=== PATIENT | female | born 1960 | race Two or more races ===

== ENCOUNTER → 2020-06-14 08:59 | Outpatient (BNVA) | payer MEDICARE, MEDICAID, SELFPAY | PROVIDERS: PCP Internal Medicine; Referring Provider Internal Medicine; Visit Provider Internal Medicine Endocrinology, Diabetes & Metabolism | DX: M81.0 Age-related osteoporosis without current pathological fracture (principal); Z79.899 Other long term (current) drug therapy | CPT/HCPCS: 99212 ==

== ENCOUNTER 2020-06-29 14:49 | Outpatient (REF) | payer MEDICARE, MEDICAID, SELFPAY ==
--- NOTE | 2020-06-29 14:55 | MM_ITS ---
EXAMINATION: MM SCREENING DIGITAL BREAST TOMOSYNTHESIS, BILATERAL CLINICAL INFORMATION: Screening. Asymptomatic. The lifetime risk of breast cancer based on the Tyrer-Cuzick Model is 10.6%. COMPARISON: Mammography: June 24, 2019 and studies dating back to January 16, 2012 TECHNIQUE: Digital breast tomosynthesis is performed in both the craniocaudal and mediolateral oblique views along with computer-aided detection (CAD). Synthesized 2D images are generated from the tomosynthesis. FINDINGS: The breasts are heterogeneously dense, which may obscure small masses (ACR BI-RADS breast composition Category c). On craniocaudal view about the posterior lateral aspect of the left breast there is an 8 x 6 mm circumscribed density 9 cm from the nipple for which spot compression view and probable ultrasound is recommended. There is stable appearance of the right breast. MM/MM tomosynthesis screening BI IMPRESSION: Left breast density on craniocaudal view for further evaluation as described. ASSESSMENT: BI-RADS 0: Incomplete - Need Additional Imaging Evaluation RECOMMENDATION: 1. Additional views of the left breast 2. Targeted ultrasound if warranted after review of the additional views. 3. Radiology department staff will contact the patient for additional imaging. This patient's information was entered into a reminder system with a target due date for their next mammogram.
== END 2020-06-29 14:50 | disposition home or self-care (01) ==
LOC: HO.MAMMO 14:49
PROVIDERS: PCP Internal Medicine; Visit Provider Internal Medicine
DX: Z12.31 Encounter for screening mammogram for malignant neoplasm of breast (principal)
CPT/HCPCS: 77063; 77067

== ENCOUNTER 2020-07-04 08:01 | Outpatient (REF) | payer MEDICARE, MEDICAID, SELFPAY ==
[2020-07-04 09:07] LABS: Albumin Level 4.1 g/dL (3.5-5.0); Calcium 9.5 mg/dL (8.4-10.2)
[2020-07-11 03:51] LABS: N-Telopeptide 7 (see note); NTXCreaRU 39 mg/dL (20-275)
== END 2020-07-04 08:02 | disposition home or self-care (01) ==
LOC: HO.LAB 08:01
PROVIDERS: PCP Internal Medicine; Visit Provider Internal Medicine Endocrinology, Diabetes & Metabolism
DX: M81.0 Age-related osteoporosis without current pathological fracture (principal); E78.00 Pure hypercholesterolemia, unspecified
CPT/HCPCS: 82040; 82306; 82310; 82523

== ENCOUNTER 2020-07-22 08:08 | Outpatient (REF) | payer MEDICARE, MEDICAID, SELFPAY | END 2020-07-22 08:09 | disposition home or self-care (01) | LOC: HO.LAB 08:08 | PROVIDERS: Visit Provider Internal Medicine | DX: Z20.828 Contact with and (suspected) exposure to other viral communicable diseases (principal) | CPT/HCPCS: C9803; U0003 ==

== ENCOUNTER 2020-08-15 13:39 | Outpatient (REF) | payer MEDICARE, MEDICAID, SELFPAY ==
--- NOTE | 2020-08-15 13:42 | MM_ITS ---
EXAMINATION: MM DIAGNOSTIC DIGITAL BREAST TOMOSYNTHESIS, LEFT US DIAGNOSTIC ULTRASOUND BREAST, LEFT CLINICAL INFORMATION: Recall from screening for nodular asymmetric density posterior central outer left breast on CC view. No definite correlate on MLO view. Family history breast cancer in sister. COMPARISON: Mammography: 06/29/2020, 06/24/2019, 05/29/2018, 05/27/2017 TECHNIQUE: Digital breast tomosynthesis is performed. 2D images are generated from the tomosynthesis. The following views are obtained: 3-D spot CC, 3-D rolled CC x2 Ultrasound left breast is targeted to the 1:00 through 5:00 position. Grayscale imaging and color Doppler are performed without and with harmonics. FINDINGS: The breasts are heterogeneously dense, which may obscure small masses (ACR BI-RADS breast composition Category c). The asymmetric density is less conspicuous on the additional views. There is no three-dimensional lesion or architectural abnormality. Ultrasound shows no cystic or solid mass or architectural abnormality. No focal duct ectasia. Results are discussed with the patient at time of visit, using an sign writer letterer or painter. Management plan is for short interval six-month follow-up left diagnostic digital breast tomosynthesis. MM/MM tomosynthesis added views L IMPRESSION: 1. Asymmetric density less conspicuous on additional views. No visible three-dimensional lesion or architectural abnormality. 2. No ultrasound correlate. ASSESSMENT: BI-RADS 3: Probably Benign RECOMMENDATION: Diagnostic left 3-D mammography in 6 months. This patient's information was entered into a reminder system with a target due date for their next mammogram.
== END 2020-08-15 13:40 | disposition home or self-care (01) ==
LOC: HO.MAMMO 13:39
PROVIDERS: PCP Internal Medicine; Visit Provider Internal Medicine
DX: R92.2 Inconclusive mammogram (principal); N64.89 Other specified disorders of breast; M81.0 Age-related osteoporosis without current pathological fracture
CPT/HCPCS: 76642; 77061; 77065

== ENCOUNTER → 2020-08-23 08:42 | Outpatient (BNVA) | payer MEDICARE, MEDICAID, SELFPAY | PROVIDERS: PCP Internal Medicine; Visit Provider Dietitian, Registered | DX: Z76.89 Persons encountering health services in other specified circumstances (principal) ==

== ENCOUNTER 2020-09-21 12:16 | Outpatient (REF) | payer MEDICARE, MEDICAID, SELFPAY ==
[2020-09-21 14:21] LABS: Estimated Average Glucose 229 mg/dL; Hemoglobin A1c % 9.6 %
[2020-09-21 14:23] LABS: Glucose Urine UA NEG (NEG); Leukocyte Esterase Urine 1+ (NEG); Nitrite Urine POS (NEG); Urine Blood 1+ (NEG); Urine Ketones NEG (NEG); Urine Protein NEG (NEG-TRACE)
[2020-09-21 14:26] LABS: Appearance Urine HAZY; Color Urine STRAW
[2020-09-21 14:35] LABS: Bacteria Urine 3+ /LPF; Squamous Epithelial Cell Urine 4+ /LPF
[2020-09-21 14:43] LABS: Alanine Aminotransferase 39 U/L (0-31); Albumin Level 4.2 g/dL (3.5-5.0); Alkaline Phosphatase 159 U/L (39-117); Anion Gap 13 (12-20); Aspartate Amino Transferase 30 U/L (5-31); Bilirubin Total 0.4 mg/dL (0.0-1.0); Blood Urea Nitrogen 18 mg/dL (9-16); Calcium 9.1 mg/dL (8.4-10.2); Carbon Dioxide 26 mmol/L (22-29); Chloride 103 mmol/L (96-108); Cholesterol 129 mg/dL; Estimated Glomerular Filt Rate 55; Glucose Random 140 mg/dL (60-115); HDL Cholesterol 34 mg/dL; LDL Cholesterol Calculated 76 mg/dl; Potassium 4.6 mmol/L (3.3-5.1); Sodium 137 mmol/L (135-145); Total Protein 7.5 g/dL (6.5-8.0); Triglycerides 98 mg/dL
[2020-09-21 14:48] LABS: Creatinine Urine 71.92 mg/dL; Microalbum/Creatinine Ratio Ur 8.3 ug/mg cr
[2020-09-21 14:52] LABS: Thyroid Stimulating Hormone 1.96 uIU/mL (0.32-4.0)
== END 2020-09-21 12:17 | disposition home or self-care (01) ==
LOC: HO.HMGCLDS 12:16
PROVIDERS: PCP Internal Medicine; Visit Provider Internal Medicine
DX: E11.65 Type 2 diabetes mellitus with hyperglycemia (principal); E78.00 Pure hypercholesterolemia, unspecified
CPT/HCPCS: 36415; 80053; 80061; 81001; 82043; 83036; 84439; 84443

== ENCOUNTER 2020-12-13 10:05 | Outpatient (REF) | payer MEDICARE, MEDICAID, SELFPAY ==
[2020-12-13 14:22] LABS: Glucose Urine UA NEG (NEG); Leukocyte Esterase Urine 2+ (NEG); Nitrite Urine NEG (NEG); Urine Blood 1+ (NEG); Urine Ketones NEG (NEG); Urine Protein NEG (NEG-TRACE)
[2020-12-13 14:23] LABS: Appearance Urine HAZY; Color Urine YELLOW
[2020-12-13 14:35] LABS: Bacteria Urine 3+ /LPF; Squamous Epithelial Cell Urine 4+ /LPF
[2020-12-13 14:46] LABS: Alanine Aminotransferase 34 U/L (0-31); Albumin Level 4.3 g/dL (3.5-5.0); Alkaline Phosphatase 151 U/L (39-117); Anion Gap 15 (12-20); Aspartate Amino Transferase 30 U/L (5-31); Bilirubin Total 0.5 mg/dL (0.0-1.0); Blood Urea Nitrogen 19 mg/dL (9-16); Calcium 9.5 mg/dL (8.4-10.2); Carbon Dioxide 23 mmol/L (22-29); Chloride 105 mmol/L (96-108); Cholesterol 123 mg/dL; Estimated Glomerular Filt Rate 39; Glucose Random 187 mg/dL (60-115); HDL Cholesterol 32 mg/dL; LDL Cholesterol Calculated 60 mg/dl; Potassium 4.4 mmol/L (3.3-5.1); Sodium 139 mmol/L (135-145); Total Protein 7.8 g/dL (6.5-8.0); Triglycerides 158 mg/dL
[2020-12-13 14:50] LABS: Creatinine Urine 107.32 mg/dL
== END 2020-12-13 10:06 | disposition home or self-care (01) ==
LOC: HO.LAB 10:05
PROVIDERS: PCP Internal Medicine; Visit Provider Nurse Practitioner
DX: K59.04 Chronic idiopathic constipation (principal); K75.81 Nonalcoholic steatohepatitis (NASH); R14.0 Abdominal distension (gaseous); E78.00 Pure hypercholesterolemia, unspecified; E11.65 Type 2 diabetes mellitus with hyperglycemia; K21.9 Gastro-esophageal reflux disease without esophagitis
CPT/HCPCS: 36415; 80053; 80061; 81001; 82105; 99212

== ENCOUNTER → 2020-12-15 08:20 | Outpatient (BNVA) | payer MEDICARE, MEDICAID, SELFPAY | PROVIDERS: PCP Internal Medicine; Visit Provider Internal Medicine Endocrinology, Diabetes & Metabolism | DX: M81.0 Age-related osteoporosis without current pathological fracture (principal) | CPT/HCPCS: 96372; 99212 ==

== ENCOUNTER 2020-12-27 09:17 | Outpatient (REF) | payer MEDICARE, MEDICAID, SELFPAY ==
--- NOTE | ~2020-12-27 | US_ITS ---
EXAMINATION: US ABDOMEN COMPLETE CLINICAL INFORMATION: SWAN (nonalcoholic steatosis). COMPARISON: Ultrasound abdomen complete dated 04/03/2020 and 10/06/2019. KUB dated 10/31/2015 and 09/16/2014. CT abdomen and pelvis without and with contrast dated 02/23/2015. TECHNIQUE: Real-time imaging of the abdominal viscera. FINDINGS: PANCREAS: The head and body the pancreas are normal. The tail is not well visualized due to bowel gas. ABDOMINAL AORTA: The proximal, mid, and distal segments are normal in caliber. INFERIOR VENA CAVA: Visualized portions are normal. LIVER: The liver is normal in size. The liver contour is normal. Liver echotexture is increased. There is a hypoechoic area adjacent to the gallbladder, characteristic location of focal fatty sparing. No focal hepatic lesion. There is no intrahepatic biliary duct dilatation seen. GALLBLADDER: Surgically absent. COMMON BILE DUCT: Normal in caliber measuring 0.7 cm in diameter. RIGHT KIDNEY: Normal. No hydronephrosis. No renal calculi or focal parenchymal lesions. The kidney measures 9.1 cm in maximum dimension. LEFT KIDNEY: Normal. No hydronephrosis. No renal calculi or focal parenchymal lesions. The kidney measures 9.0 cm in maximum dimension. SPLEEN: Normal. The spleen measures 8.1 cm in maximum dimension. FREE FLUID: None. US/US abdomen complete IMPRESSION: Echogenic liver probably representing fatty infiltration. Limited visualization of the pancreas. Postcholecystectomy.
== END 2020-12-27 09:18 | disposition home or self-care (01) ==
LOC: HO.US 09:17
PROVIDERS: Visit Provider Nurse Practitioner
DX: K75.81 Nonalcoholic steatohepatitis (NASH) (principal); K59.04 Chronic idiopathic constipation; R14.0 Abdominal distension (gaseous)
CPT/HCPCS: 76700

== ENCOUNTER 2021-01-29 09:45 | Outpatient (REF) | payer MEDICARE, MEDICAID, SELFPAY ==
[2021-01-29 11:09] LABS: Alanine Aminotransferase 34 U/L (0-31); Albumin Level 4.1 g/dL (3.5-5.0); Alkaline Phosphatase 148 U/L (39-117); Anion Gap 12 (12-20); Aspartate Amino Transferase 24 U/L (5-31); Bilirubin Total 0.4 mg/dL (0.0-1.0); Blood Urea Nitrogen 18 mg/dL (9-16); Calcium 8.4 mg/dL (8.4-10.2); Carbon Dioxide 20 mmol/L (22-29); Chloride 111 mmol/L (96-108); Estimated Glomerular Filt Rate > 60; Glucose Fasting 178 mg/dL (60-99); Potassium 4.1 mmol/L (3.3-5.1); Sodium 139 mmol/L (135-145)
[2021-01-29 11:11] LABS: Glucose Urine UA NEG (NEG); Leukocyte Esterase Urine 1+ (NEG); Nitrite Urine NEG (NEG); Urine Blood 1+ (NEG); Urine Ketones NEG (NEG); Urine Protein NEG (NEG-TRACE)
[2021-01-29 11:15] LABS: Appearance Urine CLEAR; Color Urine YELLOW
[2021-01-29 11:31] LABS: Vitamin D 25-OH Total 35.2 ng/mL (>30)
[2021-01-29 12:03] LABS: RBC Urine 0-2 /HPF (0); Squamous Epithelial Cell Urine 3+ /LPF
[2021-01-29 12:04] LABS: Bacteria Urine 1+ /LPF
[2021-02-02 17:52] LABS: N-Telopeptide 14 (see note); NTXCreaRU 76 mg/dL (20-275)
== END 2021-01-29 09:46 | disposition home or self-care (01) ==
LOC: HO.LAB 09:45
PROVIDERS: Absent Provider Internal Medicine; PCP Internal Medicine; Visit Provider Internal Medicine Endocrinology, Diabetes & Metabolism
DX: N28.9 Disorder of kidney and ureter, unspecified (principal); M81.0 Age-related osteoporosis without current pathological fracture
CPT/HCPCS: 36415; 80048; 80053; 81001; 82306; 82523

== ENCOUNTER 2021-02-13 12:45 | Outpatient (REF) | payer MEDICARE, MEDICAID, SELFPAY ==
--- NOTE | ~2021-02-13 | MM_ITS ---
EXAMINATION: MM DIAGNOSTIC DIGITAL BREAST TOMOSYNTHESIS, LEFT CLINICAL INFORMATION: Density deep left breast The lifetime risk of breast cancer based on the Tyrer-Cuzick Model is 9.6%. COMPARISON: Mammography: June 29, 2020 and studies dating back to April 29, 2014 TECHNIQUE: Digital breast tomosynthesis is performed in both the craniocaudal and mediolateral oblique views along with computer-aided detection (CAD). Synthesized 2D images are generated from the tomosynthesis. FINDINGS: The breasts are heterogeneously dense, which may obscure small masses (ACR BI-RADS breast composition Category c). There is stability of density seen deep left breast on craniocaudal view for greater than 2 years. Results are provided to the patient at time of visit by the technologist. MM/MM tomosynthesis diagnostic LT IMPRESSION: There are no significant changes from prior study. ASSESSMENT: BI-RADS 2: Benign RECOMMENDATION: Routine annual mammography screening, due in 6 months. This patient's information was entered into a reminder system with a target due date for their next mammogram.
== END 2021-02-13 12:46 | disposition home or self-care (01) ==
LOC: HO.MAMMO 12:45
PROVIDERS: Visit Provider Internal Medicine
DX: R92.2 Inconclusive mammogram (principal)
CPT/HCPCS: 77061; 77065

== ENCOUNTER → 2021-03-08 12:15 | Outpatient (BNVA) | payer MEDICARE, MEDICAID, SELFPAY | PROVIDERS: PCP Internal Medicine; Visit Provider Nurse Practitioner | DX: K59.04 Chronic idiopathic constipation (principal); K75.81 Nonalcoholic steatohepatitis (NASH); K21.9 Gastro-esophageal reflux disease without esophagitis; R14.0 Abdominal distension (gaseous) | CPT/HCPCS: Q3014 ==

== ENCOUNTER → 2021-04-26 14:52 | Outpatient (BNVA) | payer MEDICARE, MEDICAID, SELFPAY | PROVIDERS: Visit Provider Nurse Practitioner | CPT/HCPCS: Q3014 ==

== ENCOUNTER 2021-05-30 08:06 | Outpatient (REF) | payer MEDICARE, MEDICAID, SELFPAY ==
[2021-05-30 08:15] LABS: MANUAL DIFF FLAG NO
[2021-05-30 08:52] LABS: Basophils Absolute Auto 0.1 X10*3/uL (0.0-0.2); Basophils Percent Auto 1.3 % (0-2); Eosinophils Absolute Auto 0.3 X10*3/uL (0.0-0.4); Eosinophils Percent Auto 5.3 % (0-4); Hematocrit 34.1 % (37-47); Hemoglobin 11.1 g/dl (12.0-16.0); Imm Gran Abs Auto 0.01 X10*3/uL (0.00-0.03); Imm Gran Pct Auto 0.2 % (0.0-0.4); Lymphocytes Absolute Auto 1.6 X10*3/uL (1.2-4.9); Lymphocytes Percent Auto 29.4 % (20-40); Mean Corpuscular HGB Conc 32.6 g/dl (31.0-35.0); Mean Corpuscular Hemoglobin 28.5 pg (27.0-33.0); Mean Corpuscular Volume 87.4 fL (80-98); Mean Platelet Volume 9.7 fL (9.4-12.3); Monocytes Absolute Auto 0.5 X10*3/uL (0.1-1.2); Monocytes Percent Auto 8.7 % (2-11); Neutrophils Absolute Auto 2.9 X10*3/uL (2.0-8.3); Neutrophils Percent Auto 55.1 % (45-73); Platelet Count 298 X10*3/uL (160-400); Red Cell Distribution Width 13.5 % (11.0-16.0); White Blood Count 5.3 X10*3/uL (4.8-10.8)
[2021-05-30 09:16] LABS: Cholesterol 111 mg/dL; HDL Cholesterol 26 mg/dL; LDL Cholesterol Calculated 62 mg/dl; Triglycerides 115 mg/dL
[2021-05-30 09:18] LABS: Alanine Aminotransferase 30 U/L (0-31); Alkaline Phosphatase 156 U/L (39-117); Anion Gap 11 (12-20); Aspartate Amino Transferase 25 U/L (5-31); Bilirubin Total 0.3 mg/dL (0.0-1.0); Blood Urea Nitrogen 15 mg/dL (9-16); Carbon Dioxide 23 mmol/L (22-29); Chloride 107 mmol/L (96-108); Estimated Glomerular Filt Rate 51; Glucose Fasting 171 mg/dL (60-99); Potassium 4.5 mmol/L (3.3-5.1); Sodium 136 mmol/L (135-145); Total Protein 7.1 g/dL (6.5-8.0)
[2021-05-30 09:37] LABS: Free T4 (Free Thyroxine) 0.93 ng/dL (0.71-1.85); Thyroid Stimulating Hormone 2.51 uIU/mL (0.32-4.0)
[2021-05-30 09:39] LABS: Vitamin D 25-OH Total 46.1 ng/mL (>30)
[2021-05-30 09:45] LABS: Estimated Average Glucose 171 mg/dL; Hemoglobin A1c % 7.6 %
[2021-05-30 10:33] LABS: Folate 13.5 ng/mL (> or = 4.0); Vitamin B12 1259 pg/mL (200-900)
[2021-05-30 10:41] LABS: Creatinine Urine 45.67 mg/dL; Microalbumin Urine < 5.0 mg/L
[2021-06-05 16:41] LABS: N-Telopeptide 21 (see note); NTXCreaRU 49 mg/dL (20-275)
== END 2021-05-30 08:07 | disposition home or self-care (01) ==
LOC: HO.LAB 08:06
PROVIDERS: Absent Provider Internal Medicine Endocrinology, Diabetes & Metabolism; PCP Internal Medicine; Visit Provider Internal Medicine
DX: E78.00 Pure hypercholesterolemia, unspecified (principal); E11.65 Type 2 diabetes mellitus with hyperglycemia; M81.0 Age-related osteoporosis without current pathological fracture
CPT/HCPCS: 36415; 80053; 80061; 82043; 82306; 82523; 82607; 82746; 83036; 84439; 84443; 85025

== ENCOUNTER 2021-06-12 13:29 | Outpatient (REF) | payer MEDICARE, MEDICAID, SELFPAY ==
[2021-06-13 13:19] LABS: BV Int Neg Control Negative (Negative); BV Int Pos Control Positive (Positive)
[2021-06-13 14:32] LABS: CT PCR NOT DETECTED (Not Detect.); NG PCR NOT DETECTED (Not Detect.)
== END 2021-06-12 13:30 | disposition home or self-care (01) ==
LOC: HO.LAB 13:29
PROVIDERS: PCP Internal Medicine; Visit Provider Advanced Practice Midwife
DX: Z01.411 Encounter for gynecological examination (general) (routine) with abnormal findings (principal); Z11.3 Encounter for screening for infections with a predominantly sexual mode of transmission; R10.2 Pelvic and perineal pain
CPT/HCPCS: 81003; 87480; 87491; 87510; 87591; 87660; 99212

== ENCOUNTER → 2021-06-18 08:03 | Outpatient (BNVA) | payer MEDICARE, MEDICAID, SELFPAY | PROVIDERS: PCP Internal Medicine; Visit Provider Internal Medicine | DX: M81.0 Age-related osteoporosis without current pathological fracture (principal); E55.9 Vitamin D deficiency, unspecified | CPT/HCPCS: 96372; 99212; J0897 ==

== ENCOUNTER 2021-06-19 13:24 | Outpatient (REF) | payer MEDICARE, MEDICAID, SELFPAY | END 2021-06-19 13:25 | disposition home or self-care (01) | LOC: HO.LAB 13:24 | PROVIDERS: Visit Provider Internal Medicine | DX: Z20.822 Contact with and (suspected) exposure to COVID-19 (principal) | CPT/HCPCS: C9803; U0003; U0005 ==

== ENCOUNTER 2021-06-20 15:04 | Outpatient (REF) | payer MEDICARE, MEDICAID, SELFPAY ==
--- NOTE | ~2021-06-20 | US_ITS ---
EXAMINATION: ULTRASOUND OF THE PELVIS CLINICAL INFORMATION: Pelvic and perineal pain. COMPARISON: None. TECHNIQUE: Transabdominal and transvaginal pelvic ultrasound. A transvaginal study was performed in addition to the transabdominal study which did not yield an adequate examination of the uterus and ovaries due to superimposed distended gas-filled loops of bowel. FINDINGS: The uterus is normal in size and appearance, measuring 4.5 x 2.1 x 3.3 cm longitudinally, anteroposteriorly and transversely. The endometrial stripe thickness is normal, measuring 5.3 cm in thickness. Along the posterior uterine body myometrium there is a 0.6 x 0.6 x 0.7 cm fibroid, similar to prior. Nabothian cysts are noted at the cervix. The ovaries are not visualized. No adnexal mass or free fluid collection seen. US/US pelvic and transvaginal IMPRESSION: Small uterine fibroid. No pelvic mass otherwise..
== END 2021-06-20 15:05 | disposition home or self-care (01) ==
LOC: HO.US 15:04
PROVIDERS: PCP Internal Medicine; Visit Provider Advanced Practice Midwife
DX: R10.2 Pelvic and perineal pain (principal)
CPT/HCPCS: 76830; 76856

== ENCOUNTER 2021-07-02 10:09 | Outpatient (REF) | payer MEDICARE, MEDICAID, SELFPAY ==
--- NOTE | ~2021-07-02 | MM_ITS ---
EXAMINATION: MM SCREENING DIGITAL BREAST TOMOSYNTHESIS, BILATERAL CLINICAL INFORMATION: Screening. Asymptomatic. The lifetime risk of breast cancer based on the Tyrer-Cuzick Model is 12%. COMPARISON: Mammography: 08/15/2020, 06/29/2020, 06/24/2019, 05/29/2018 TECHNIQUE: Digital breast tomosynthesis is performed in both the craniocaudal and mediolateral oblique views along with computer-aided detection (CAD). Synthesized 2D images are generated from the tomosynthesis. FINDINGS: There are scattered areas of fibroglandular density (ACR BI-RADS breast composition Category b). Breast tissue composition borders on heterogeneously dense. Parenchymal pattern is similar to prior exams and there is no developing density or interval mass or architectural abnormality. There is a biopsy clip marker again seen anterior periareolar 12:00 left breast. There are no abnormal calcifications. The axilla and skin contours are unremarkable. MM/MM tomosynthesis screening BI IMPRESSION: No mammographic evidence of malignancy. ASSESSMENT: BI-RADS 2: Benign RECOMMENDATION: Routine annual mammography screening. This patient's information was entered into a reminder system with a target due date for their next mammogram.
== END 2021-07-02 10:10 | disposition home or self-care (01) ==
LOC: HO.MAMMO 10:09
PROVIDERS: Visit Provider Internal Medicine
DX: Z12.31 Encounter for screening mammogram for malignant neoplasm of breast (principal)
CPT/HCPCS: 77063; 77067; Q3014

== ENCOUNTER 2021-12-06 08:53 | Outpatient (REF) | payer MEDICARE, MEDICAID, SELFPAY ==
[2021-12-06 10:24] LABS: Alanine Aminotransferase 28 U/L (0-31); Albumin Level 3.8 g/dL (3.5-5.0); Alkaline Phosphatase 151 U/L (39-117); Anion Gap 11 (12-20); Aspartate Amino Transferase 24 U/L (5-31); Bilirubin Total 0.2 mg/dL (0.0-1.0); Blood Urea Nitrogen 12 mg/dL (9-16); Calcium 9.2 mg/dL (8.4-10.2); Carbon Dioxide 23 mmol/L (22-29); Chloride 107 mmol/L (96-108); Estimated Glomerular Filt Rate 52; Glucose Random 202 mg/dL (60-115); Phosphorus 2.6 mg/dL (2.7-4.5); Potassium 4.3 mmol/L (3.3-5.1); Sodium 137 mmol/L (135-145); Total Protein 7.1 g/dL (6.5-8.0)
[2021-12-06 10:47] LABS: Free T4 (Free Thyroxine) 1.02 ng/dL (0.71-1.85); Thyroid Stimulating Hormone 5.08 uIU/mL (0.32-4.0)
[2021-12-07 12:26] LABS: Calcium (PTHI) 8.8 mg/dL (8.6-10.4); PTHI 36 pg/mL (16-77)
[2021-12-08 13:20] LABS: Prot Elec - Albumin 3.6 g/dL (3.8-4.8); Prot Elec - Alpha1 0.4 g/dL (0.2-0.3); Prot Elec - Alpha2 0.8 g/dL (0.5-0.9); Prot Elec - Beta 1 0.6 g/dL (0.4-0.6); Prot Elec - Beta 2 0.5 g/dL (0.2-0.5); Prot Elec - Gamma 1.2 g/dL (0.8-1.7)
[2021-12-11 15:36] LABS: Alkaline Phosphatase Bone 19.2 mcg/L (5.6-29.0)
[2021-12-11 16:46] LABS: N-Telopeptide 26 (see note); NTXCreaRU 98 mg/dL (20-275)
== END 2021-12-06 08:54 | disposition home or self-care (01) ==
LOC: HO.MAMMO 08:53
PROVIDERS: PCP Internal Medicine; Visit Provider Internal Medicine
DX: Z13.89 Encounter for screening for other disorder (principal)
CPT/HCPCS: 36415; 80053; 82306; 82523; 83970; 84075; 84100; 84165; 84439; 84443

== ENCOUNTER 2021-12-06 09:22 | Outpatient (REF) | payer MEDICARE, MEDICAID, SELFPAY ==
--- NOTE | ~2021-12-06 | MM_ITS ---
EXAMINATION: BONE DENSITOMETRY CLINICAL INDICATION: Age-related osteoporosis without current pathological fracture. COMPARISON: Previous BD dated 06/24/2019 and baseline BD dated 01/02/2012. TECHNIQUE: Using a [employer] DXA System (software version: 13.1) manufactured by [employer], dual-energy x-ray absorptiometry was performed of the lumbar spine and left hip. The images are of good technical quality. Summary results are attached. FINDINGS: AP SPINE L1-L4: Current: BMD 0.917 g/cm2, Z-score -0.9, T-score -2.2, osteopenia, 4.8% decrease from previous, 3.3% increase from baseline (<5% change is not significant). Prior: BMD 0.963 g/cm2. Baseline: BMD 0.888 g/cm2. LEFT FEMUR, NECK: Current: BMD 0.904 g/cm2, Z-score 0.3, T-score -1.0, normal. Prior: BMD 0.868 g/cm2. Baseline: BMD 0.904 g/cm2. LEFT FEMUR, TOTAL: Current: BMD 1.025 g/cm2, Z-score 1.1, T-score 0.1, normal, 1.2% decrease from previous, 0.4% decrease from baseline (<5% change is not significant). Prior: BMD 1.037 g/cm2. Baseline: BMD 1.029 g/cm2. IDENTIFIED RISK FACTORS: Secondary osteoporosis (early menopause, type 1 diabetes). Rheumatoid arthritis. HISTORY OF FRACTURE: None listed. MEDICATIONS: Vitamin D. Prolia. MM/XR DEXA axial skeleton IMPRESSION: 1. DIAGNOSIS: Osteopenia based on the lowest T-score value of -2.2 in the lumbar spine applying World Health Organization criteria. 2. 10-YEAR FRACTURE RISK PREDICTION, FRAX: Major osteoporotic fracture (clinical spine, forearm, hip or shoulder) 4.7%. Hip fracture 0.3%. 3. Treatment Recommendations: NOF guidelines recommend consideration for treatment in postmenopausal women and men age 50 and older presenting with the following: -A hip or vertebral (clinical or morphometric) fracture. -T-score less than or equal to -2.5 at the femoral neck or spine after appropriate evaluation to exclude secondary causes. -Low bone mass at the hip or spine and a 10-year fracture probability by FRAX of greater than or equal to 3% for hip fracture or greater than or equal to 20% for major osteoporotic fracture based on the [place] adapted WHO algorithm. 4. Other Recommendations: All treatment decisions require clinical judgment and consideration of individual patient factors, including patient preferences, comorbidities, previous drug use, risk factors not captured in the FRAX model (e.g. frailty, falls, vitamin D deficiency, increased bone turnover, interval significant decline in bone density) and possible under or overestimation of fracture risk by FRAX. Additional medical evaluation for secondary cause of low bone mineral density may be appropriate. FUTURE SCAN RECOMMENDATION: People with diagnosed cases of osteoporosis or at high risk for fracture should have regular bone mineral density tests. For patients eligible for Medicare, routine testing is allowed once every 2 years. The testing frequency can be increased to one year for patients who have rapidly progressing disease, those who are receiving or discontinuing medical therapy to restore bone mass, or have additional risk factors.
== END 2021-12-06 09:23 | disposition home or self-care (01) ==
LOC: HO.MAMMO 09:22
PROVIDERS: Visit Provider Internal Medicine
DX: Z13.820 Encounter for screening for osteoporosis (principal); M81.0 Age-related osteoporosis without current pathological fracture; Z78.0 Asymptomatic menopausal state
CPT/HCPCS: 36415; 77080; 80053; 82306; 82523; 83970; 84075; 84100; 84165; 84439; 84443

== ENCOUNTER 2021-12-17 08:11 | Outpatient (REF) | payer MEDICARE, MEDICAID, SELFPAY ==
[2021-12-17 10:46] LABS: Albumin Level 3.9 g/dL (3.5-5.0)
[2021-12-17 11:05] LABS: Free T4 (Free Thyroxine) 1.24 ng/dL (0.71-1.85); Thyroid Stimulating Hormone 3.14 uIU/mL (0.32-4.0)
[2021-12-19 11:27] LABS: Thyroglobulin Antibodies <1 IU/mL (< or = 1); Thyroid Peroxidase Antibodies 1 IU/mL (<9)
== END 2021-12-17 08:12 | disposition home or self-care (01) ==
LOC: HO.LAB 08:11
PROVIDERS: PCP Internal Medicine; Visit Provider Internal Medicine
DX: M81.0 Age-related osteoporosis without current pathological fracture (principal); E03.9 Hypothyroidism, unspecified; E55.9 Vitamin D deficiency, unspecified
CPT/HCPCS: 36415; 82040; 84439; 84443; 86376; 86800; Q3014

== ENCOUNTER 2022-06-13 07:57 | Outpatient (REF) | payer MEDICARE, MEDICAID, SELFPAY ==
[2022-06-13 08:13] LABS: MANUAL DIFF FLAG NO
[2022-06-13 09:22] LABS: Basophils Absolute Auto 0.1 X10*3/uL (0.0-0.2); Basophils Percent Auto 1.4 % (0-2); Eosinophils Absolute Auto 0.3 X10*3/uL (0.0-0.4); Eosinophils Percent Auto 4.6 % (0-4); Hematocrit 35.1 % (37.0-47.0); Hemoglobin 11.4 g/dl (12.0-16.0); Imm Gran Abs Auto 0.01 X10*3/uL (0.00-0.03); Imm Gran Pct Auto 0.2 % (0.0-0.4); Immature Retic Fraction 14.2 % (3.0-15.9); Lymphocytes Absolute Auto 1.7 X10*3/uL (1.2-4.9); Lymphocytes Percent Auto 29.3 % (20-40); Mean Corpuscular HGB Conc 32.5 g/dl (31.0-35.0); Mean Corpuscular Hemoglobin 28.7 pg (27.0-33.0); Mean Corpuscular Volume 88.4 fL (80.0-98.0); Mean Platelet Volume 10.1 fL (9.4-12.3); Monocytes Absolute Auto 0.4 X10*3/uL (0.1-1.2); Monocytes Percent Auto 6.8 % (2-11); Neutrophils Absolute Auto 3.4 x10*3/uL (2.0-8.3); Neutrophils Percent Auto 57.7 % (45-73); Platelet Count 314 X10*3/uL (160-400); Red Blood Count 3.97 X10*6/uL (4.20-5.50); Red Cell Distribution Width 13.6 % (11.0-16.0); Retic HGB Equivalent 32.7 pg (30.0-35.0); Reticulocyte Percent 2.3 % (0.5-1.8); Reticulocytes Absolute 0.089 X10*6/uL (0.026-0.095); White Blood Count 5.9 X10*3/uL (4.8-10.8)
[2022-06-13 09:57] LABS: Alanine Aminotransferase 28 U/L (0-31); Albumin Level 4.1 g/dL (3.5-5.0); Alkaline Phosphatase 172 U/L (39-117); Anion Gap 18 (12-20); Aspartate Amino Transferase 23 U/L (5-31); Bilirubin Total 0.3 mg/dL (0.0-1.0); Blood Urea Nitrogen 19 mg/dL (9-16); Calcium 9.4 mg/dL (8.4-10.2); Carbon Dioxide 18 mmol/L (22-29); Chloride 106 mmol/L (96-108); Cholesterol 117 mg/dL; Estimated Glomerular Filt Rate 56; Glucose Random 187 mg/dL (60-115); HDL Cholesterol 30 mg/dL; Iron 58 mcg/dL (30-160); LDL Cholesterol Calculated 55 mg/dl; Percent Iron Saturation 16 % (15-50); Phosphorus 3.1 mg/dL (2.7-4.5); Potassium 4.4 mmol/L (3.3-5.1); Sodium 138 mmol/L (135-145); Total Iron Binding Capacity 363 mcg/dL (228-428); Total Protein 7.4 g/dL (6.5-8.0); Triglycerides 161 mg/dL; Unsaturated Iron Binding 305 ug/dL
[2022-06-13 10:03] LABS: Appearance Urine Clear; Color Urine Yellow; Glucose Urine UA Negative (Negative); Leukocyte Esterase Urine Moderate (2+) (Negative); Nitrite Urine Negative (Negative); Urine Blood Negative (Negative); Urine Ketones Negative (Negative); Urine Protein Negative (Neg-Trace)
[2022-06-13 10:04] LABS: UMIC TRIGGER UACC YES
[2022-06-13 10:07] LABS: Free T4 (Free Thyroxine) 0.86 ng/dL (0.71-1.85); Vitamin D 25-OH Total 42.5 ng/mL (>30)
[2022-06-13 10:09] LABS: Bacteria Urine Trace (None Seen); Hyaline Casts Urine 0-2 /LPF (0-2); RBC Urine 0-2 /HPF (0-2); UACC Culture Trigger YES
[2022-06-13 10:12] LABS: Ferritin 69 ng/mL (10-250)
[2022-06-13 10:27] LABS: Folate 8.5 ng/mL (> or = 4.0); Vitamin B12 860 pg/mL (200-900)
[2022-06-13 10:36] LABS: Creatinine Urine 58.54 mg/dL; Microalbum/Creatinine Ratio Ur 10.2 ug/mg cr
[2022-06-14 12:55] LABS: Calcium (PTHI) 9.5 mg/dL (8.6-10.4); PTHI 41 pg/mL (16-77)
[2022-06-17 14:23] LABS: Alkaline Phosphatase Bone 23.5 mcg/L (5.6-29.0)
[2022-06-20 20:33] LABS: N-Telopeptide 16 (see note); NTXCreaRU 59 mg/dL (20-275)
== END 2022-06-13 07:58 | disposition home or self-care (01) ==
LOC: HO.LAB 07:57
PROVIDERS: Absent Provider Internal Medicine; PCP Internal Medicine; Visit Provider Internal Medicine
DX: M81.0 Age-related osteoporosis without current pathological fracture (principal); E55.9 Vitamin D deficiency, unspecified; E11.65 Type 2 diabetes mellitus with hyperglycemia; E78.00 Pure hypercholesterolemia, unspecified; R30.0 Dysuria
CPT/HCPCS: 36415; 80053; 80061; 81001; 81003; 82043; 82306; 82523; 82607; 82728; 82746; 83540; 83970; 84075; 84100; 84439; 84443; 85025; 85045; 87086

== ENCOUNTER → 2022-06-24 08:05 | Outpatient (BNVA) | payer MEDICARE, MEDICAID, SELFPAY | PROVIDERS: PCP Internal Medicine; Visit Provider Internal Medicine | DX: E04.9 Nontoxic goiter, unspecified (principal); M81.0 Age-related osteoporosis without current pathological fracture; E03.9 Hypothyroidism, unspecified; E55.9 Vitamin D deficiency, unspecified | CPT/HCPCS: 99212 ==

== ENCOUNTER 2022-06-24 10:57 | Outpatient (REF) | payer MEDICARE, MEDICAID, SELFPAY ==
--- NOTE | ~2022-06-24 | US_ITS ---
EXAMINATION: US THYROID CLINICAL INFORMATION: Nontoxic goiter, unspecified. COMPARISON: None TECHNIQUE: Linear transducer grayscale and color Doppler examination with attention to the region of the thyroid. FINDINGS: SIZE: Measurements of the thyroid lobes and nodules are given in sagittal, anteroposterior and transverse dimensions respectively. Right Thyroid Lobe: 4.1 x 1.2 x 1.4 cm, volume 3.6 mL. Parenchyma: The gland echotexture is homogeneous. Thyroid vascularity is normal. Left Thyroid Lobe: 3.3 x 1.2 x 1.1 cm, volume 2.3 mL. Parenchyma: The gland echotexture is homogeneous. Thyroid vascularity is normal. Isthmus: 0.3 cm in maximum AP dimension. Estimated total number of nodules greater than or equal to 1 cm: 0. Seam Stay Stitcher nodules are described as follows: 1. Location: Right lower pole. Size: 0.3 x 0.2 x 0.4 cm, volume 0.01 mL. Nodule characteristics: Composition: Solid/almost completely solid (2). Echogenicity: Isoechoic (1). Shape: Not taller than wide (0). Margins: Ill-defined (0). Echogenic Foci: None ACR TI-RADS total points: 3 ACR TI-RADS category: 3 2. Location: Left medial/lower pole. Size: 0.8 x 0.4 x 0.4 cm, volume 0.1 mL. Nodule characteristics: Composition: Mixed cystic and solid (1). Echogenicity: Isoechoic (1). Shape: Not taller than wide (0). Margins: Ill-defined (0). Echogenic Foci: Comet-tail artifacts (0). ACR TI-RADS total points: 2 ACR TI-RADS category: 2 NODES: No lymphadenopathy is seen in the tissue surrounding the thyroid gland. US/US thyroid IMPRESSION: Small bilateral thyroid nodules. ACR TI-RADS RECOMMENDATION REFERENCE: Ultrasound-guided fine-needle aspiration, followup ultrasound, no further follow up. * TR1 (0 point) and TR 2 (2 points): No FNA or follow up. * TR3 (3 points): FNA if more than or equal to 2.5 cm in maximum dimension, followup ultrasound in 1, 3 and 5 years if 1.5 to 2.4 cm in maximum dimension. * TR4 (4-6 points): FNA if more than or equal to 1.5 cm in maximum dimension, followup ultrasound in 1, 2, 3 and 5 years if 1 to 1.4 cm in maximum dimension. * TR5 (more than or equal to 7 points): FNA if more than or equal to 1 cm in maximum dimension, followup ultrasound every year for 5 years if 0.5 to 0.9 cm in maximum dimension. * TR3, TR4 or TR5 nodules that are below the size threshold for followup receive no follow up.
== END 2022-06-24 10:58 | disposition home or self-care (01) ==
LOC: HO.US 10:57
PROVIDERS: PCP Internal Medicine; Visit Provider Internal Medicine
DX: E04.9 Nontoxic goiter, unspecified (principal)
CPT/HCPCS: 76536; 99212

== ENCOUNTER → 2022-07-09 08:07 | Outpatient (BNVA) | payer MEDICARE, MEDICAID, SELFPAY | PROVIDERS: PCP Internal Medicine; Visit Provider Nurse Practitioner | DX: K59.04 Chronic idiopathic constipation (principal); K21.9 Gastro-esophageal reflux disease without esophagitis; K75.81 Nonalcoholic steatohepatitis (NASH); D12.6 Benign neoplasm of colon, unspecified | CPT/HCPCS: 99212 ==

== ENCOUNTER 2022-07-15 11:36 | Outpatient (REF) | payer MEDICARE, MEDICAID, SELFPAY ==
--- NOTE | ~2022-07-15 | MM_ITS ---
EXAMINATION: MM SCREENING DIGITAL BREAST TOMOSYNTHESIS, BILATERAL CLINICAL INFORMATION: Screening. Asymptomatic. The lifetime risk of breast cancer based on the Tyrer-Cuzick Model is 8%. COMPARISON: Mammography: The 07/02/2021, 02/13/2021, 08/15/2020, 06/29/2020, 06/24/2019, 05/29/2018; left breast ultrasound 08/15/2020. TECHNIQUE: Digital breast tomosynthesis is performed in both the craniocaudal and mediolateral oblique views along with computer-aided detection (CAD). Synthesized 2D images are generated from the tomosynthesis. FINDINGS: There are scattered areas of fibroglandular density (ACR BI-RADS breast composition Category b). There are no significant masses, abnormal calcifications, or other abnormalities. Parenchymal pattern is similar to prior studies. Biopsy clip marker again noted anterior upper left breast. No architectural abnormality or interval developing density. The axilla are unremarkable. Skin contours are smooth. MM/MM tomosynthesis screening BI IMPRESSION: No mammographic evidence of malignancy. ASSESSMENT: BI-RADS 1: Negative RECOMMENDATION: Routine annual mammography screening. This patient's information was entered into a reminder system with a target due date for their next mammogram.
== END 2022-07-15 11:37 | disposition home or self-care (01) ==
LOC: HO.MAMMO 11:36
PROVIDERS: PCP Internal Medicine; Visit Provider Internal Medicine
DX: Z12.31 Encounter for screening mammogram for malignant neoplasm of breast (principal)
CPT/HCPCS: 77063; 77067

== ENCOUNTER 2022-08-29 07:59 | Outpatient (REF) | payer OTHER, SELFPAY ==
--- NOTE | ~2022-08-29 | US_ITS ---
EXAMINATION: US ABDOMEN LIMITED CLINICAL INFORMATION: SWAN. COMPARISON: Ultrasound abdomen complete 12/27/2020 and 04/03/2020. TECHNIQUE: Real-time imaging of the right upper quadrant abdominal viscera. FINDINGS: PANCREAS: Visualized proximal pancreas is normal. Distal pancreas obscured by bowel gas. LIVER: Subtly increased hepatic echogenicity. The liver is normal in size. The liver contour is normal. No focal hepatic lesion. There is no intrahepatic biliary duct dilatation seen. GALLBLADDER: Surgically absent. COMMON BILE DUCT: Normal in caliber measuring 0.7 cm in diameter. RIGHT KIDNEY: No hydronephrosis. No renal calculi or focal parenchymal lesions. The kidney measures 9.0 cm in maximum dimension. FREE FLUID: None. US/US abdomen limited IMPRESSION: There is subtly increased hepatic echogenicity. Mild hepatic steatosis could give this appearance.
== END 2022-08-29 08:00 | disposition home or self-care (01) ==
LOC: HO.US 07:59
PROVIDERS: PCP Internal Medicine; Visit Provider Nurse Practitioner
DX: K75.81 Nonalcoholic steatohepatitis (NASH) (principal)
CPT/HCPCS: 76705

== ENCOUNTER 2022-10-07 16:07 | Emergency (ER) | payer OTHER, SELFPAY ==
--- NOTE | ~2022-10-07 | CT_ITS ---
EXAMINATION: CT ABDOMEN AND PELVIS WITHOUT CONTRAST CLINICAL INFORMATION: Right lower quadrant pain COMPARISON: CT abdomen and pelvis 03/05/2015 TECHNIQUE: Multidetector volumetric imaging was performed from the superior aspect of the liver through the pubic symphysis. Sagittal and coronal reformatted images were obtained on the technologist's workstation. This CT examination was performed using dose optimization techniques as appropriate, variously including the following: *Automated exposure control *Adjustment of mA and/or kV according to patient size (this includes techniques or standardized protocols for targeted exams where dose is matched to indication/reason for exam; i.e. extremities or head) *Use of iterative reconstruction technique DLP: 472 mGy-cm FINDINGS: LUNG BASES: Minimal bibasilar atelectasis. LIVER, GALLBLADDER, AND BILIARY TREE: The liver is enlarged with the right lobe measuring 19.7 cm in craniocaudal dimension. Normal attenuation. No focal hepatic lesion or biliary ductal dilatation is present. Status post cholecystectomy. PANCREAS: Unremarkable. SPLEEN: Unremarkable. ADRENAL GLANDS: Unremarkable. KIDNEYS AND URETERS: The kidneys are symmetric and normal in size. No renal calculi or renal lesion. No perinephric stranding or collection. There is mild fullness of the right renal collecting system, similar to prior. No significant hydronephrosis. BLADDER: Unremarkable. GASTROINTESTINAL TRACT: No dilated bowel loops. No bowel wall thickening. Normal appendix. Moderate amount of formed stool in the cecum and ascending colon. No free air or ascites. ABDOMINAL WALL: Small fat-containing lower ventral abdominal wall hernia on series 3 image 73 and tiny fat-containing umbilical hernia. Small fat-containing right inguinal hernia. LYMPH NODES: No lymphadenopathy. VASCULAR: Unremarkable. PELVIC VISCERA: Unremarkable. OSSEOUS STRUCTURES: No acute fracture or suspicious osseous lesion. Mild multilevel spondylosis. CT/CT abdomen pelvis wo IV con IMPRESSION: 1. No evidence of acute appendicitis or other acute intra-abdominal process. 2. Mild hepatomegaly.
[2022-10-07 16:23] VITALS: BP 150/90; PULSE 110; O2SAT 98
[2022-10-07 16:25] VITALS: BP 147/85; PULSE 102; RESP 18; TEMP 37.1; O2SAT 97; BMI 32.8
--- NOTE | 2022-10-07 16:29 | ED.ABDPAIN ---
HPI - Abdominal Pain General Chief Complaint: Abdominal Pain <PRAVIN Concepcion - Last Filed: 10/07/22 16:31> Stated Complaint: abd pain <PRAVIN Concepcion - Last Filed: 10/07/22 16:31> Time Seen by Provider: 10/07/22 21:40 <PRAVIN Concepcion - Last Filed: 10/07/22 16:31> Source: patient, EMS and [facility] <Karan Marina MD - Last Filed: 10/07/22 22:03> Mode of arrival: EMS <Karan Marina MD - Last Filed: 10/07/22 22:03> Limitations: no limitations <Karan Marina MD - Last Filed: 10/07/22 22:03> History of Present Illness HPI narrative: 62-year-old female came in for evaluation of abdominal pain, patient came from PCP office for concern of acute appendicitis. Lower abdominal pain for the past 3 days, described as severe pain 7/10, no radiation, no other associated symptoms, no nausea, no vomiting. Normal bowel movement. Frequency urination with no dysuria, no back pain.. No fever, no chills. Past abdominal surgical history is significant for cholecystectomy and . <Karan Marina MD - Last Filed: 10/07/22 22:03> Related Data Home Medications: Home Medications Medication Instructions Recorded Confirmed mirtazapine 15 mg tablet 15 mg PO BEDTIME 06/14/20 10/07/22 sertraline 50 mg tablet 50 mg PO DAILY 06/14/20 10/07/22 epinephrine 0.3 mg/0.3 mL 0.3 mg IM Q10M PRN 07/17/20 10/07/22 injection, auto-injector (EpiPen) lorazepam 1 mg tablet See Rx Instructions .Route .COMPLEX 07/17/20 10/07/22 Previous Rx's Medication Instructions Recorded bisacodyl 5 mg tablet,delayed 10 mg PO BEDTIME 30 days #60 tabs 03/08/21 release (Dulcolax (bisacodyl)) diphenhydramine HCl 25 mg capsule 25 mg PO TID PRN allergic reaction 08/03/21 (Banophen) #30 caps cyanocobalamin (vitamin B-12) 1,000 mcg PO DAILY #30 tabs 11/12/21 1,000 mcg tablet calcium citrate 500 mg PO BID 90 days #360 tabs 12/17/21 simvastatin 10 mg tablet 10 mg PO BEDTIME #90 tabs 03/13/22 dicyclomine 10 mg capsule 10 mg PO TID #270 caps 03/18/22 blood sugar diagnostic (FreeStyle 1 strip miscellaneous TID for 05/15/22 Lite Strips) diabetes mellitus #3 boxes blood-glucose meter (FreeStyle #1 ea 05/15/22 Lite Meter kit) lancets 28 gauge (FreeStyle #3 boxes 05/15/22 Lancets) insulin degludec 100 unit/mL (3 28 unit (0.28 mL) subcut BID 30 05/19/22 mL) subcutaneous pen (Tresiba days #15 mL FlexTouch U-100 insulin) cholecalciferol (vitamin D3) 25 25 mcg PO DAILY 90 days #90 caps 06/17/22 mcg (1,000 unit) capsule linaclotide 290 mcg capsule 290 mcg PO DAILY #30 caps 07/09/22 (Linzess) pantoprazole 40 mg tablet,delayed 40 mg PO BID #180 tabs 07/09/22 release simethicone 180 mg capsule 180 mg PO TIDWMEAL 30 days #90 caps 07/09/22 pen needle, diabetic 31 gauge x #100 ea 08/22/22/ (1st Tier Unifine Pentips) alendronate 70 mg tablet (Fosamax) 70 mg PO QWEEK 30 days #4 tabs 09/16/22 levofloxacin 750 mg tablet 750 mg PO DAILY #10 tabs 10/07/22 <PRAVIN Concepcion - Last Filed: 10/07/22 16:31> Allergies/Adverse Reactions: Allergies Allergy/AdvReac Type Severity Reaction Status Date / Time apple [Apple] Allergy Severe SWELLING/HI Verified 10/07/22 15:04 VES nut - unspecified [nut] Allergy Severe SWELLING/HI Verified 10/07/22 15:04 VES orange Allergy Severe SWELLING/HI Verified 10/07/22 15:04 VES peanut [Peanut] Allergy Severe SWELLING/HI Verified 10/07/22 15:04 VES penicillin V Allergy Severe rash Verified 10/07/22 15:04 Pork/Porcine Containing Allergy Severe SWELLING/HI Verified 10/07/22 15:04 Products VES [Pork/Porcine Product Derivatives] strawberry [Holladay] Allergy Severe SWELLING/HI Verified 10/07/22 15:04 VES raloxifene [Evista] Allergy Intermediate Unknown Verified 10/07/22 15:04 citalopram Allergy Unknown numbness Verified 10/07/22 15:04 legs,hands Penicillins Allergy Unknown RASH Verified 10/07/22 15:04 metoclopramide AdvReac Unknown AGITATION Verified 10/07/22 15:04 From Soy Allergy Severe SWELLING,HI Uncoded 10/07/22 15:04 VES <PRAVIN Concepcion - Last Filed: 10/07/22 16:31> Review of Systems Review of Systems All other systems are reviewed and are negative Constitutional: Reports as per HPI and Reports no additional constitutional complaints Eyes: Reports as per HPI and Reports no additional eye complaints Reports system reviewed and no additional complaints, except as documented Cardiovascular: Reports as per HPI and Reports no additional cardiovascular complaints Respiratory: Reports as per HPI and Reports no additional respiratory complaints Gastrointestinal: Reports as per HPI and Reports no additional gastrointestinal complaints Genitourinary: Reports no additional female genitourinary complaints Musculoskeletal: Reports no additional musculoskeletal complaints Skin/Breast: Reports system reviewed and no additional complaints, except as docu Psychiatric: Reports no additional psychiatric complaints Endocrine: Reports no additional endocrine complaints Hematologic/Lymphatic: Reports no additional hematologic/lymphatic complaints Allergic/Immunologic: Reports no additional allergic/immunologic complaints Reports system reviewed and no additional complaints, except as documented and Reports Abnormal speech present <Karan Marina MD - Last Filed: 10/07/22 22:03> [facility] Past Medical History Medical History: Medical History Anxiety and depression Gastroparesis GERD (gastroesophageal reflux disease) Goiter Hip osteoarthritis Hypercholesterolemia Hypothyroidism Obesity (BMI 30-39.9) Osteoporosis Type 2 diabetes mellitus with hyperglycemia Vitamin D deficiency Vitamin D deficiency <PRAVIN Concepcion - Last Filed: 10/07/22 16:31> Surgical History: Surgical History Hx of breast biopsy Hx of cholecystectomy Hx of colonoscopy Hx of esophagogastroduodenoscopy Hx of foot surgery Hx of tonsillectomy Hx of tubal ligation <PRAVIN Concepcion - Last Filed: 10/07/22 16:31> Family History Family History: Family History Father Alcoholism Mother Dementia Diabetes Heart disease Myocardial infarct Sister Breast cancer Brother Lung cancer Myocardial infarct Maternal Uncle Colon cancer Other Mental health disorder Substance use disorder <PRAVIN Concepcion - Last Filed: 10/07/22 16:31> Social History Social History: Social History Housing: Apartment Alcohol intake: never Patient Tobacco Use Status: Never used Tobacco e-Cigarette/Vaping Use: Never Used Second Hand Smoke Exposure: No Advance Directives: No Advance Directives Information Provided: Yes Current occupational status: employed Cognitive needs: No Hearing needs: No Vision needs: Yes <PRAVIN Concepcion - Last Filed: 10/07/22 16:31> Physical Exam ED Vital Signs: Vital Signs - 24 hr 10/07/22 16:25 10/07/22 20:51 Temperature 98.8 F 98.4 F Pulse Rate 102 H 78 Respiratory Rate 18 16 Blood Pressure 147/85 H 119/84 Pulse Oximetry 97 98 Oxygen Delivery Method Room Air Room Air BMI result Body Mass Index 32.8 <PRAVIN Concepcion - Last Filed: 10/07/22 16:31> Vital Signs - 24 hr 10/07/22 16:25 10/07/22 20:51 Temperature 98.8 F 98.4 F Pulse Rate 102 H 78 Respiratory Rate 18 16 Blood Pressure 147/85 H 119/84 Pulse Oximetry 97 98 Oxygen Delivery Method Room Air Room Air BMI result Body Mass Index 32.8 Vital signs have been reviewed as appeared to be correct. Blood pressure normal. Heart rate normal. Respiration rate normal. Temperature normal. Oxygen saturation normal. <Karan Marina MD - Last Filed: 10/07/22 22:03> Appearance: Alert. Oriented X3. No acute distress. Head: Normal external exam. Normocephalic. Atraumatic. No Ambrose signs noted. No raccoon eyes noted Eyes: PERRLA. EOMI. Conjunctiva and sclera normal. Eyelids normal. ENT: TM's Normal. Pharynx normal. Uvula midline. Moist mucous membranes. No trismus noted. No drooling noted. No muffled voice noted. Neck: Normal inspection. Neck supple. FROM. No adenopathy. Thyroid Normal. No meningeal signs. No neck mass noted. CVS: Normal heart rate and rhythm. Heart sound normal. No murmurs noted. Pulses normal throughout. Respiratory: No respiratory distress. Painless inspiration. Breath sounds normal. No wheezes/rales/rhonchi noted. Chest nontender. No accessory muscle usage noted or decreased air movement noted. Abdomen: Soft, superficial tenderness, no rebound tenderness, no guarding. Bowel sounds normal in all 4 quadrants. No distention noted. No organomegaly noted. No visible injury noted. Back: No CVA tenderness. Full range of motion noted. Skin: Skin warm and dry. Normal skin color. Normal skin turgor. No rashes/lesions/lacerations noted. Extremities: No lower extremity edema. Extremities exhibit normal range of motion. Extremities nontender. Neuro: Oriented X 3. Cranial nerve exam: II-XII are grossly intact No motor deficit. No sensory deficit. Reflexes normal. <Karan Marina MD - Last Filed: 10/07/22 22:03> Course Course Course Narrative: RME - 62 yo female with history of DM, depression, hypothyroidism, obesity, SWAN, GERD, constipation who presents to the ER from Dr. Nino's office via EMS for evaluation of RLQ abdominal pain that started 3 days ago. Worse with standing and laying down flat. No vomiting, fever, diarrhea. Dr. Nino concerned for possible appendicitis. Nontoxic appearing, HR 104, afebrile. Labs and CT scan ordered. <PRAVIN Concepcion - Last Filed: 10/07/22 16:31> Reevaluation(s) Reevaluation #1: Came in from PCP office concern of acute appendicitis patient turned out to have cystitis. Will start the patient on Levaquin IV in the emergency department and discharged with 10 days course of Levaquin. Patient was encouraged to drink plenty of fluids. <Karan Marina MD - Last Filed: 10/07/22 22:03> Time: 23:30 <Karan Marina MD - Last Filed: 10/07/22 22:03> Medical Decision Making Differential Diagnosis Differential Diagnoses: The differential diagnosis associated with the presentation includes (Acute appendicitis, kidney stone, pyelonephritis, acute cystitis, simple UTI, ovarian cyst.) <Karan Marina MD - Last Filed: 10/07/22 22:03> Lab Data MDM Lab Attestation statement: I reviewed the patient's lab results. <Karan Marina MD - Last Filed: 10/07/22 22:03> Result Diagrams: 10/07/22 17:30 10/07/22 17:30 <PRAVIN Concepcion - Last Filed: 10/07/22 16:31> Labs: Lab Results 10/07/22 10/07/22 10/07/22 Range/Units 17:30 17:30 17:30 WBC 7.3 (4.8-10.8) X10*3/uL RBC 4.19 L (4.20-5.50) X10*6/uL Hgb 11.7 L (12.0-16.0) g/dl Hct 36.6 L (37.0-47.0) % MCV 87.4 (80.0-98.0) fL MCH 27.9 (27.0-33.0) pg MCHC 32.0 (31.0-35.0) g/dl RDW 14.1 (11.0-16.0) % Plt Count 341 (160-400) X10*3/uL MPV 9.6 (9.4-12.3) fL Immature Gran % (Auto) 0.3 (0.0-0.4) % Neut % (Auto) 64.7 (45-73) % Lymph % (Auto) 25.2 (20-40) % Blanco % (Auto) 6.8 (2-11) % Eos % (Auto) 1.5 (0-4) % Baso % (Auto) 1.5 (0-2) % Lymph # (Auto) 1.9 (1.2-4.9) X10*3/uL [place] # (Auto) 0.5 (0.1-1.2) X10*3/uL Eos # (Auto) 0.1 (0.0-0.4) X10*3/uL Baso # (Auto) 0.1 (0.0-0.2) X10*3/uL Abs Immat Gran (auto) 0.02 (0.00-0.03) X10*3/uL Absolute Neuts (auto) 4.8 (2.0-8.3) x10*3/uL Absolute Nucleated RBC 0.000 (0.0-0.012) X10*3/uL Nucleated RBC % (auto) 0.0 (0.0-0.2) /100WBC Sodium 141 (135-145) mmol/L Potassium 3.8 (3.3-5.1) mmol/L Chloride 105 (96-108) mmol/L Carbon Dioxide 24 (22-29) mmol/L Anion Gap 16 (12-20) BUN 12 (9-16) mg/dL Creatinine 0.93 (0.5-1.4) mg/dL Estim Creat Clear Calc 46.1 Estimated GFR > 60 Random Glucose 99 (60-115) mg/dL Calcium 9.6 (8.4-10.2) mg/dL Magnesium 1.8 (1.6-2.6) mg/dL Total Bilirubin 0.5 (0.0-1.0) mg/dL Direct Bilirubin 0.2 (0.0-0.5) mg/dL AST 22 (5-31) U/L ALT 23 (0-31) U/L Alkaline Phosphatase 133 H (39-117) U/L Total Protein 7.7 (6.5-8.0) g/dL Albumin 4.2 (3.5-5.0) g/dL Urine Color Urine Appearance Urine pH (5.0-9.0) Ur Specific [place] (1.005-1.025) Urine Protein (Neg-Trace) mg/dL Urine Glucose (UA) (Negative) mg/dL Urine Ketones (Negative) mg/dL Urine Blood (Negative) Urine Nitrite (Negative) Ur Leukocyte Esterase (Negative) Urine RBC (0-2) /HPF Urine WBC (0-5) /HPF Ur Squamous Epith Cells (0-2) /HPF Urine Bacteria (None Seen) Hyaline Casts (0-2) /LPF COVID-19 (VONDA) Negative (Negative) COVID-19 Clin Com See Note 10/07/22 Range/Units 20:52 WBC (4.8-10.8) X10*3/uL RBC (4.20-5.50) X10*6/uL Hgb (12.0-16.0) g/dl Hct (37.0-47.0) % MCV (80.0-98.0) fL MCH (27.0-33.0) pg MCHC (31.0-35.0) g/dl RDW (11.0-16.0) % Plt Count (160-400) X10*3/uL MPV (9.4-12.3) fL Immature Gran % (Auto) (0.0-0.4) % Neut % (Auto) (45-73) % Lymph % (Auto) (20-40) % Blanco % (Auto) (2-11) % Eos % (Auto) (0-4) % Baso % (Auto) (0-2) % Lymph # (Auto) (1.2-4.9) X10*3/uL Blanco # (Auto) (0.1-1.2) X10*3/uL Eos # (Auto) (0.0-0.4) X10*3/uL Baso # (Auto) (0.0-0.2) X10*3/uL Abs Immat Gran (auto) (0.00-0.03) X10*3/uL Absolute Neuts (auto) (2.0-8.3) x10*3/uL Absolute Nucleated RBC (0.0-0.012) X10*3/uL Nucleated RBC % (auto) (0.0-0.2) /100WBC Sodium (135-145) mmol/L Potassium (3.3-5.1) mmol/L Chloride (96-108) mmol/L Carbon Dioxide (22-29) mmol/L Anion Gap (12-20) BUN (9-16) mg/dL Creatinine (0.5-1.4) mg/dL Estim Creat Clear Calc Estimated GFR Random Glucose (60-115) mg/dL Calcium (8.4-10.2) mg/dL Magnesium (1.6-2.6) mg/dL Total Bilirubin (0.0-1.0) mg/dL Direct Bilirubin (0.0-0.5) mg/dL AST (5-31) U/L ALT (0-31) U/L Alkaline Phosphatase (39-117) U/L Total Protein (6.5-8.0) g/dL Albumin (3.5-5.0) g/dL Urine Color Yellow Urine Appearance Cloudy Urine pH 6.0 (5.0-9.0) Ur Specific [place] 1.015 (1.005-1.025) Urine Protein Negative (Neg-Trace) mg/dL Urine Glucose (UA) Negative (Negative) mg/dL Urine Ketones Negative (Negative) mg/dL Urine Blood Trace H (Negative) Urine Nitrite Negative (Negative) Ur Leukocyte Esterase Moderate (2+) H (Negative) Urine RBC 3-5 H (0-2) /HPF Urine WBC 21-50 H (0-5) /HPF Ur Squamous Epith Cells 11-20 (0-2) /HPF Urine Bacteria 4+ (None Seen) Hyaline Casts 0-2 (0-2) /LPF COVID-19 (VONDA) (Negative) COVID-19 Clin Com <PRAVIN Concepcion - Last Filed: 10/07/22 16:31> Lab Results 10/07/22 10/07/22 10/07/22 Range/Units 17:30 17:30 17:30 WBC 7.3 (4.8-10.8) X10*3/uL RBC 4.19 L (4.20-5.50) X10*6/uL Hgb 11.7 L (12.0-16.0) g/dl Hct 36.6 L (37.0-47.0) % MCV 87.4 (80.0-98.0) fL MCH 27.9 (27.0-33.0) pg MCHC 32.0 (31.0-35.0) g/dl RDW 14.1 (11.0-16.0) % Plt Count 341 (160-400) X10*3/uL MPV 9.6 (9.4-12.3) fL Immature Gran % (Auto) 0.3 (0.0-0.4) % Neut % (Auto) 64.7 (45-73) % Lymph % (Auto) 25.2 (20-40) % Blanco % (Auto) 6.8 (2-11) % Eos % (Auto) 1.5 (0-4) % Baso % (Auto) 1.5 (0-2) % Lymph # (Auto) 1.9 (1.2-4.9) X10*3/uL Blanco # (Auto) 0.5 (0.1-1.2) X10*3/uL Eos # (Auto) 0.1 (0.0-0.4) X10*3/uL Baso # (Auto) 0.1 (0.0-0.2) X10*3/uL Abs Immat Gran (auto) 0.02 (0.00-0.03) X10*3/uL Absolute Neuts (auto) 4.8 (2.0-8.3) x10*3/uL Absolute Nucleated RBC 0.000 (0.0-0.012) X10*3/uL Nucleated RBC % (auto) 0.0 (0.0-0.2) /100WBC Sodium 141 (135-145) mmol/L Potassium 3.8 (3.3-5.1) mmol/L Chloride 105 (96-108) mmol/L Carbon Dioxide 24 (22-29) mmol/L Anion Gap 16 (12-20) BUN 12 (9-16) mg/dL Creatinine 0.93 (0.5-1.4) mg/dL Estim Creat Clear Calc 46.1 Estimated GFR > 60 Random Glucose 99 (60-115) mg/dL Calcium 9.6 (8.4-10.2) mg/dL Magnesium 1.8 (1.6-2.6) mg/dL Total Bilirubin 0.5 (0.0-1.0) mg/dL Direct Bilirubin 0.2 (0.0-0.5) mg/dL AST 22 (5-31) U/L ALT 23 (0-31) U/L Alkaline Phosphatase 133 H (39-117) U/L Total Protein 7.7 (6.5-8.0) g/dL Albumin 4.2 (3.5-5.0) g/dL Urine Color Urine Appearance Urine pH (5.0-9.0) Ur Specific [place] (1.005-1.025) Urine Protein (Neg-Trace) mg/dL Urine Glucose (UA) (Negative) mg/dL Urine Ketones (Negative) mg/dL Urine Blood (Negative) Urine Nitrite (Negative) Ur Leukocyte Esterase (Negative) Urine RBC (0-2) /HPF Urine WBC (0-5) /HPF Ur Squamous Epith Cells (0-2) /HPF Urine Bacteria (None Seen) Hyaline Casts (0-2) /LPF COVID-19 (VONDA) Negative (Negative) COVID-19 Clin Com See Note 10/07/22 Range/Units 20:52 WBC (4.8-10.8) X10*3/uL RBC (4.20-5.50) X10*6/uL Hgb (12.0-16.0) g/dl Hct (37.0-47.0) % MCV (80.0-98.0) fL MCH (27.0-33.0) pg MCHC (31.0-35.0) g/dl RDW (11.0-16.0) % Plt Count (160-400) X10*3/uL MPV (9.4-12.3) fL Immature Gran % (Auto) (0.0-0.4) % Neut % (Auto) (45-73) % Lymph % (Auto) (20-40) % Blanco % (Auto) (2-11) % Eos % (Auto) (0-4) % Baso % (Auto) (0-2) % Lymph # (Auto) (1.2-4.9) X10*3/uL Bl[place] # (Auto) (0.1-1.2) X10*3/uL Eos # (Auto) (0.0-0.4) X10*3/uL Baso # (Auto) (0.0-0.2) X10*3/uL Abs Immat Gran (auto) (0.00-0.03) X10*3/uL Absolute Neuts (auto) (2.0-8.3) x10*3/uL Absolute Nucleated RBC (0.0-0.012) X10*3/uL Nucleated RBC % (auto) (0.0-0.2) /100WBC Sodium (135-145) mmol/L Potassium (3.3-5.1) mmol/L Chloride (96-108) mmol/L Carbon Dioxide (22-29) mmol/L Anion Gap (12-20) BUN (9-16) mg/dL Creatinine (0.5-1.4) mg/dL Estim Creat Clear Calc Estimated GFR Random Glucose (60-115) mg/dL Calcium (8.4-10.2) mg/dL Magnesium (1.6-2.6) mg/dL Total Bilirubin (0.0-1.0) mg/dL Direct Bilirubin (0.0-0.5) mg/dL AST (5-31) U/L ALT (0-31) U/L Alkaline Phosphatase (39-117) U/L Total Protein (6.5-8.0) g/dL Albumin (3.5-5.0) g/dL Urine Color Yellow Urine Appearance Cloudy Urine pH 6.0 (5.0-9.0) Ur Specific [place] 1.015 (1.005-1.025) Urine Protein Negative (Neg-Trace) mg/dL Urine Glucose (UA) Negative (Negative) mg/dL Urine Ketones Negative (Negative) mg/dL Urine Blood Trace H (Negative) Urine Nitrite Negative (Negative) Ur Leukocyte Esterase Moderate (2+) H (Negative) Urine RBC 3-5 H (0-2) /HPF Urine WBC 21-50 H (0-5) /HPF Ur Squamous Epith Cells 11-20 (0-2) /HPF Urine Bacteria 4+ (None Seen) Hyaline Casts 0-2 (0-2) /LPF COVID-19 (VONDA) (Negative) COVID-19 Clin Com <Karan Marina MD - Last Filed: 10/07/22 22:03> Independent Interpretation I performed an independent interpretation of an: CT Scan (Abdomen and pelvis: No acute pathology.) <Karan Marina MD - Last Filed: 10/07/22 22:03> Radiology Impression Discussion of test interpretation with radiology: I have reviewed the radiologist's reading. <Karan Marina MD - Last Filed: 10/07/22 22:03> Discharge Plan Discharge Clinical Impression: Cystitis <PRAVIN Concepcion - Last Filed: 10/07/22 16:31> Patient Disposition: Home, Self-Care <PRAVIN Concepcion - Last Filed: 10/07/22 16:31> Instructions: Urinary Tract Infection in Women (ED) <PRAVIN Concepcion - Last Filed: 10/07/22 16:31> Prescriptions: New levofloxacin 750 mg tablet 750 mg PO DAILY Qty: 10 0RF No Action diphenhydramine HCl [Banophen] 25 mg capsule 25 mg PO TID PRN (Reason: allergic reaction) Qty: 30 0RF cyanocobalamin (vitamin B-12) 1,000 mcg tablet 1,000 mcg PO DAILY Qty: 30 11RF simvastatin 10 mg tablet 10 mg PO BEDTIME Qty: 90 2RF dicyclomine 10 mg capsule 10 mg PO TID Qty: 270 1RF (DME) blood-glucose meter [FreeStyle Lite Meter] Kit See Rx Instructions .ROUTE .MEDSUPPLY Qty: 1 0RF Rx Instructions: As directed check the blood sugar 3 times a day FreeStyle Lite Strips Strip 1 strip miscellaneous TID Qty: 3 3RF (DME) lancets [FreeStyle Lancets] 28 gauge misc See Rx Instructions .ROUTE .MEDSUPPLY Qty: 3 3RF Rx Instructions: As directed check the BS TID Tresiba FlexTouch U-100 100 unit/mL (3 mL) insulin pen 28 unit subcut BID 30 Days Qty: 15 3RF cholecalciferol (vitamin D3) 25 mcg (1,000 unit) capsule 25 mcg PO DAILY 90 Days Qty: 90 1RF (DME) pen needle, diabetic [1st Tier Unifine Pentips] 31 gauge x 3/16 needle See Rx Instructions .ROUTE .MEDSUPPLY Qty: 100 3RF Rx Instructions: As directed inject once a day alendronate [Fosamax] 70 mg tablet 70 mg PO QWEEK 30 Days Qty: 4 11RF epinephrine [EpiPen] 0.3 mg/0.3 mL auto-injector 0.3 mg IM Q10M PRN Rx Instructions: for 2 doses bisacodyl [Dulcolax (bisacodyl)] 5 mg tablet,delayed release (DR/EC) 10 mg PO BEDTIME 30 Days Qty: 60 6RF sertraline 50 mg tablet 50 mg PO DAILY mirtazapine 15 mg tablet 15 mg PO BEDTIME lorazepam 1 mg tablet See Rx Instructions .ROUTE .COMPLEX Rx Instructions: 1/2 tab QD and 1 at bedtime; Linzess 290 mcg capsule 290 mcg PO DAILY Qty: 30 6RF pantoprazole 40 mg tablet,delayed release (DR/EC) 40 mg PO BID Qty: 180 3RF simethicone 180 mg capsule 180 mg PO TIDWMEAL 30 Days Qty: 90 6RF Rx Instructions: after meals calcium citrate 250 mg calcium tablet 500 mg PO BID 90 Days Qty: 360 11RF <PRAVIN Concepcion - Last Filed: 10/07/22 16:31> Referrals: Po,Lamont Miguel MD [Primary Care Provider] - <PRAVIN Concepcion - Last Filed: 10/07/22 16:31>
[2022-10-07 17:37] LABS: MANUAL DIFF FLAG NO
[2022-10-07 17:38] LABS: Basophils Absolute Auto 0.1 X10*3/uL (0.0-0.2); Basophils Percent Auto 1.5 % (0-2); Eosinophils Absolute Auto 0.1 X10*3/uL (0.0-0.4); Eosinophils Percent Auto 1.5 % (0-4); Hematocrit 36.6 % (37.0-47.0); Hemoglobin 11.7 g/dl (12.0-16.0); Imm Gran Abs Auto 0.02 X10*3/uL (0.00-0.03); Imm Gran Pct Auto 0.3 % (0.0-0.4); Lymphocytes Absolute Auto 1.9 X10*3/uL (1.2-4.9); Lymphocytes Percent Auto 25.2 % (20-40); Mean Corpuscular Hemoglobin 27.9 pg (27.0-33.0); Mean Corpuscular Volume 87.4 fL (80.0-98.0); Mean Platelet Volume 9.6 fL (9.4-12.3); Monocytes Absolute Auto 0.5 X10*3/uL (0.1-1.2); Monocytes Percent Auto 6.8 % (2-11); Neutrophils Absolute Auto 4.8 x10*3/uL (2.0-8.3); Neutrophils Percent Auto 64.7 % (45-73); Platelet Count 341 X10*3/uL (160-400); Red Blood Count 4.19 X10*6/uL (4.20-5.50); Red Cell Distribution Width 14.1 % (11.0-16.0); White Blood Count 7.3 X10*3/uL (4.8-10.8)
[2022-10-07 17:51] LABS: Alanine Aminotransferase 23 U/L (0-31); Albumin Level 4.2 g/dL (3.5-5.0); Alkaline Phosphatase 133 U/L (39-117); Anion Gap 16 (12-20); Aspartate Amino Transferase 22 U/L (5-31); Bilirubin Direct 0.2 mg/dL (0.0-0.5); Bilirubin Total 0.5 mg/dL (0.0-1.0); Blood Urea Nitrogen 12 mg/dL (9-16); Calcium 9.6 mg/dL (8.4-10.2); Carbon Dioxide 24 mmol/L (22-29); Chloride 105 mmol/L (96-108); Creatinine Clr Calc Pharmacy 46.1; Estimated Glomerular Filt Rate > 60; Glucose Random 99 mg/dL (60-115); Magnesium 1.8 mg/dL (1.6-2.6); Potassium 3.8 mmol/L (3.3-5.1); Sodium 141 mmol/L (135-145); Total Protein 7.7 g/dL (6.5-8.0)
[2022-10-07 17:53] LABS: COVID-19 Test Negative (Negative); IDNOW Serial# 16C4AD1C
[2022-10-07 20:51] VITALS: BP 119/84; PULSE 78; RESP 16; TEMP 36.9; O2SAT 98
[2022-10-07 21:10] LABS: Appearance Urine Cloudy; Color Urine Yellow; Glucose Urine UA Negative (Negative); Leukocyte Esterase Urine Moderate (2+) (Negative); Nitrite Urine Negative (Negative); Specific Gravity - Urine 1.015 (1.005-1.025); UMIC TRIGGER UACC YES; Urine Blood Trace (Negative); Urine Ketones Negative (Negative); Urine Protein Negative (Neg-Trace)
[2022-10-07 21:14] LABS: Bacteria Urine 4+ (None Seen); Hyaline Casts Urine 0-2 /LPF (0-2); UACC Culture Trigger YES; WBC Urine 21-50 /HPF (0-5)
[2022-10-07 22:00] VITALS: BP 143/78; PULSE 82; RESP 16; TEMP 37; O2SAT 98
--- NOTE | 2022-10-07 22:00 | MHC.EDTECH ---
pt 2200 rounding done ,vitals sign taken ,blood culture drawn and sent to lab .
[2022-10-07 22:26] LABS: Lipase 16 U/L (8-78)
[2022-10-07] MEDS: 0.9 % Sodium Chloride 1,000 ML 999 ML IV (22:35)
[2022-10-07] MEDS: levoFLOXacin/D5W 750 MG/150 ML PIGGYBACK 100 MG IV (22:37)
--- NOTE | 2022-10-07 23:26 | PC.NURSE ---
patient ambulatory to and from bathroom with slow, steady gait
[2022-10-07 23:47] VITALS: TEMP 36.9
[2022-10-08] VITALS: BP 120/70; PULSE 83; RESP 16; TEMP 36.9; O2SAT 97
--- NOTE | 2022-10-08 | MHC.EDTECH ---
0000 rounding done ,vitals sign taken ,pt waiting for discharge paper work .
== END 2022-10-08 00:10 | disposition home or self-care (01) ==
PROVIDERS: Physician Assistant; Emergency Provider Emergency Medicine; PCP Internal Medicine
DX: N30.90 Cystitis, unspecified without hematuria (principal); R10.31 Right lower quadrant pain; Z20.822 Contact with and (suspected) exposure to COVID-19; Z20.828 Contact with and (suspected) exposure to other viral communicable diseases; Z79.899 Other long term (current) drug therapy
CPT/HCPCS: 74176; 80048; 80076; 81001; 83690; 83735; 85025; 87040; 87086; 87635; 96374; 99284; J1956

== ENCOUNTER 2022-12-06 08:17 | Outpatient (REF) | payer OTHER, SELFPAY ==
[2022-12-06 09:29] LABS: Alanine Aminotransferase 26 U/L (0-31); Albumin Level 4.2 g/dL (3.5-5.0); Alkaline Phosphatase 156 U/L (39-117); Anion Gap 14 (12-20); Aspartate Amino Transferase 27 U/L (5-31); Bilirubin Total 0.5 mg/dL (0.0-1.0); Blood Urea Nitrogen 11 mg/dL (9-16); Calcium 9.4 mg/dL (8.4-10.2); Carbon Dioxide 25 mmol/L (22-29); Chloride 104 mmol/L (96-108); Estimated Glomerular Filt Rate 46; Glucose Random 157 mg/dL (60-115); Phosphorus 2.6 mg/dL (2.7-4.5); Potassium 4.5 mmol/L (3.3-5.1); Sodium 138 mmol/L (135-145); Total Protein 7.5 g/dL (6.5-8.0)
[2022-12-06 10:04] LABS: Folate 11.2 ng/mL (> or = 4.0); Thyroid Stimulating Hormone 2.98 uIU/mL (0.32-4.0); Vitamin B12 > 2000 pg/mL (200-900); Vitamin D 25-OH Total 54.8 ng/mL (>30)
[2022-12-09 15:29] LABS: Calcium (PTHI) 9.7 mg/dL (8.6-10.4); PTHI 14 pg/mL (16-77)
[2022-12-12 13:17] LABS: N-Telopeptide 9 (see note); NTXCreaRU 62 mg/dL (20-275)
== END 2022-12-06 08:18 | disposition home or self-care (01) ==
LOC: HO.LAB 08:17
PROVIDERS: Absent Provider Internal Medicine; PCP Internal Medicine; Visit Provider Nurse Practitioner Family
DX: M81.0 Age-related osteoporosis without current pathological fracture (principal); E55.9 Vitamin D deficiency, unspecified; G62.9 Polyneuropathy, unspecified
CPT/HCPCS: 36415; 80053; 82306; 82523; 82607; 82746; 83970; 84100; 84443

== ENCOUNTER → 2022-12-30 07:40 | Outpatient (BNVA) | payer OTHER, SELFPAY | PROVIDERS: PCP Internal Medicine; Visit Provider Internal Medicine | DX: M81.0 Age-related osteoporosis without current pathological fracture (principal); E03.9 Hypothyroidism, unspecified; E04.9 Nontoxic goiter, unspecified; E55.9 Vitamin D deficiency, unspecified | CPT/HCPCS: 99212 ==

== ENCOUNTER → 2023-01-07 08:18 | Outpatient (BNVA) | payer MEDICARE, MEDICAID, SELFPAY | PROVIDERS: PCP Internal Medicine; Visit Provider Nurse Practitioner | DX: K21.9 Gastro-esophageal reflux disease without esophagitis (principal); K75.81 Nonalcoholic steatohepatitis (NASH); K59.04 Chronic idiopathic constipation; Z86.010 Personal history of colon polyps; Z79.899 Other long term (current) drug therapy | CPT/HCPCS: 99212 ==

== ENCOUNTER 2023-05-16 14:00 | Outpatient (AMB) | payer OTHER, SELFPAY ==
--- NOTE | 2023-05-16 14:19 | A.OFFPC_ITS ---
Vital Signs 05/16/23 14:20 Height 4 ft 4 in Weight 140 lb BMI 36.4 BP 118/72 Blood Pressure Location Lt brachial Position Sitting Pulse 88 Pulse Source Pulse Oximeter Pulse Oximetry (%) 98 Oxygen Delivery Method Room Air Intake Visit Reasons: DM Allergies apple [Apple] Allergy (Severe, Verified 05/16/23 14:20) SWELLING/HIVES nut - unspecified [nut] Allergy (Severe, Verified 05/16/23 14:20) SWELLING/HIVES orange Allergy (Severe, Verified 05/16/23 14:20) SWELLING/HIVES peanut [Peanut] Allergy (Severe, Verified 05/16/23 14:20) SWELLING/HIVES penicillin V Allergy (Severe, Verified 05/16/23 14:20) rash Pork/Porcine Containing Products [Pork/Porcine Product Derivatives] Allergy (Severe, Verified 05/16/23 14:20) SWELLING/HIVES strawberry [[place]] Allergy (Severe, Verified 05/16/23 14:20) SWELLING/HIVES raloxifene [Evista] Allergy (Intermediate, Verified 05/16/23 14:20) Unknown citalopram Allergy (Unknown, Verified 05/16/23 14:20) numbness legs,hands Penicillins Allergy (Unknown, Verified 05/16/23 14:20) RASH metoclopramide Adverse Reaction (Unknown, Verified 05/16/23 14:20) AGITATION From Soy Allergy (Severe, Uncoded 05/16/23 14:20) SWELLING,HIVES Medication List - Last Reconciled 05/16/23 by Lamont Nino MD alendronate (Fosamax) 70 mg PO QWEEK 30 days blood sugar diagnostic (FreeStyle Lite Strips) 1 strip miscellaneous TID blood-glucose meter (FreeStyle Lite Meter kit) As directed check the blood sugar 3 times a day calcium citrate 500 mg (2 x 250 mg calcium) PO BID 90 days cholecalciferol (vitamin D3) 25 mcg PO DAILY 90 days cyanocobalamin (vitamin B-12) 1,000 mcg PO DAILY diclofenac sodium 1% (Voltaren Arthritis Pain) 2 grams topical QID dicyclomine 10 mg PO TID diphenhydramine HCl (Banophen) 25 mg PO TID PRN epinephrine (EpiPen) 0.3 mg IM Q10M PRN insulin degludec (Tresiba FlexTouch U-100 insulin) 24 units (0.24 mL) subcut BID 30 days lancets (FreeStyle Lancets) As directed check the BS TID levofloxacin 750 mg PO DAILY linaclotide (Linzess) 290 mcg PO DAILY loratadine 10 mg PO DAILY lorazepam 1/2 tab QD and 1 at bedtime; metformin 500 mg PO BIDWMEAL mirtazapine 15 mg PO BEDTIME pantoprazole 40 mg PO BID pen needle, diabetic (1st Tier Unifine Pentips) As directed inject twice per day sertraline 50 mg PO DAILY simethicone 180 mg PO TIDWMEAL 30 days simvastatin 10 mg PO BEDTIME Tobacco use date assessed: 11/29/22 Dental Screening Dental Screen Date: 05/16/23 Did you have a dental visit in the last 12 months?: Yes Did you have a dental problem in the last 6 months where you did not have access to dental care?: No Was dental information given to patient?: Patient has dentist HPI DM HPI Details 63-year-old obese female with uncontroll ed diabetes mellitus GERD hypercholesterolemia fatty liver hypothyroidism generalized anxiety disorder. Patient was last seen in January 2023. Patient has mammogram is due in June 2023, colonoscopy is up-to-date. Received note in January from ear nose and throat patient is interested having allergy injections patient has been advised sleep study- this was done- and was told she has and has a ff up.no need for allergy shots PFSH Medical History (Updated 05/16/23 @ 14:50 by Lamont Nino MD) RLQ abdominal pain Goiter Hypothyroidism Vitamin D deficiency Obesity (BMI 30-39.9) Hypercholesterolemia Type 2 diabetes mellitus with hyperglycemia Hip osteoarthritis Anxiety and depression Gastroparesis GERD (gastroesophageal reflux disease) Vitamin D deficiency Osteoporosis Surgical History Hx of breast biopsy Hx of cholecystectomy Hx of colonoscopy Hx of esophagogastroduodenoscopy Hx of foot surgery Hx of tonsillectomy Hx of tubal ligation Family History Father Alcoholism Mother Dementia Diabetes Heart disease Myocardial infarct Sister Breast cancer Brother Lung cancer Myocardial infarct Maternal Uncle Colon cancer Other Mental health disorder Substance use disorder Social History Housing: Apartment Alcohol intake: never Patient Tobacco Use Status: Never used Tobacco e-Cigarette/Vaping Use: Never Used Second Hand Smoke Exposure: No service: No Current occupational status: employed Cognitive needs: No Hearing needs: No Vision needs: Yes (Glasses) Questionnaire PHQ-9 Over the last 2 weeks, how often have you been bothered by any of the following problems? 1. Little interest or pleasure in doing things: not at all 2. Feeling down, depressed, or hopeless: not at all 3. Trouble falling or staying asleep, or sleeping too much: not at all 4. Feeling tired or having little energy: not at all 5. Poor appetite or overeating: not at all 6. Feeling bad about yourself - or that you are a failure or have let yourself or your family down: not at all 7. Trouble concentrating on things, such as reading the newspaper or watching television: not at all 8. Moving or speaking so slowly that other people could have noticed. Or the opposite - being so fidgety or restless that you have been moving around a lot more than usual: not at all 9. Thoughts that you would be better off or of hurting yourself in some way: not at all Total score: 0 Depression Screening Interpretation: Negative 77478 - PHQ-9 Billing: Yes Source: Developed by Drs. Tyler Lilly, Gerber Soares and colleagues, with an educational clarissa from [employer]. Thrive Questionnaire Date Thrive assessed: 10/07/22 AUDIT C Alcohol Use Questionnaire (AUDIT-C) 1. How often do you have a drink containing alcohol?: Never 3. How often do you have six or more drinks on one occasion?: Never Total Score: 0 Score Reviewed/Action Taken: No SEFERINO-7 AMB Questionnaire SEFERINO-7 Date SEFERINO - 7 assessed: 10/07/22 Source: Developed by Drs. Tyler Lilly, Gerber Soares and colleagues, with an educational clarissa from [employer]. Review of Systems Const Denies poor appetite and Denies weakness Eyes Denies no additional complaints ENT Reports Normal hearing present, Denies dizziness, Denies nasal congestion, Denies tinnitus and Denies sore throat Card Denies chest pain, Denies syncope, Denies rapid heart rate and Denies dyspnea Resp Denies cough and Denies dyspnea GI Denies change in stool character, Reports constipation, Denies diarrhea, Denies nausea and Denies vomiting Denies urinary frequency, Denies difficulty voiding and Denies dysuria Neuro Reports Normal hearing present, Denies confusion, Denies dizziness, Denies syncope and Denies weakness Psych Denies confusion Physical exam (Primary Care) Vital Signs: Last Vital Signs Pulse 88 05/16/23 14:20 BP 118/72 05/16/23 14:20 Pulse Ox 98 05/16/23 14:20 Oxygen Delivery Method Room Air 05/16/23 14:20 BMI result Body Mass Index 36.4 Tobacco/Smoking Status: Tobacco use Status Tobacco use date assessed 11/29/22 05/16/23 14:23 Patient Tobacco Use Status Never used Tobacco 05/16/23 14:23 e-Cigarette/Vaping Use Never Used 05/16/23 14:23 PHQ-9: PHQ-9 Score PHQ-9: Total score 0 05/16/23 15:09 Depression Screening Interpretation: Negative Thrive Assessment: Date of Thrive Assessment Date Thrive assessed 10/07/22 05/16/23 14:23 Const General: No confusion Orientation/consciousness: No confusion Eyes Conjunctivae: conjunctivae normal Resp Auscultation: clear to auscultation bilaterally Cardio Rate: regular rate Rhythm: regular rhythm GI Inspection: Yes normal to inspection Neuro General: No confusion Cranial nerves: Yes Normal hearing present Extrem General: Yes normal to inspection and No edema Results AMB Hemoglobin A1c AMB Hemoglobin A1c 6.6 % Last Edit by Eileen Lawler CMA on 05/16/23 14 :51 AMB Urinalysis, Automated UA Leukoctes 2 Amber/uL Last Edit by Jennifer Carreno Soraya on 05/16/23 15:17 UA Nitrite Negative Last Edit by Jennifer Carreno Soraya on 05/16/23 15:17 UA Urobilinogen 0 mg/dL Last Edit by Jennifer Carreno [facility] on 05/16/23 15:17 UA Protein 0 mg/dL Last Edit by Jennifer Carreno [facility] on 05/16/23 15:17 UA pH 6.0 Last Edit by Jennifer Carreno, RMA on 05/16/23 15:17 UA Blood 1 Christiano/uL Last Edit by Jennifer Carreno, RMA on 05/16/23 15:17 UA Specific [place] 1.015 Last Edit by Jennifer Carreno, RMA on 05/16/23 15:17 UA Ketone Negative Last Edit by Jennifer Carreno, RMA on 05/16/23 15:17 UA Bilirubin 0 mg/dL Last Edit by Jennifer Carreno, RMA on 05/16/23 15:17 UA Glucose 0 mg/dL Last Edit by Jennifer Carreno, RMA on 05/16/23 15:17 Results Reviewed Results Reviewed: Laboratory Last Values Hgb A1c (Clinic) 6.6 % (4.0-6.0) H 05/16/23 14:24 Urine pH (Auto) 6.0 05/16/23 14:55 Specific [place] (Auto) 1.015 05/16/23 14:55 Urine Protein (Auto) 0 mg/dL 05/16/23 14:55 Glucose (UA)(Auto) 0 mg/dL 05/16/23 14:55 Urine Ketones (Auto) Negative 05/16/23 14:55 Urine Blood (Auto) 1 Christiano/uL 05/16/23 14:55 Urine Nitrite (Auto) Negative 05/16/23 14:55 Urine Bilirubin (Auto) 0 mg/dL 05/16/23 14:55 Urine Urobilinogen (Auto) 0 mg/dL 05/16/23 14:55 Leukocyte Esterase (Auto) 2 Amber/uL H* 05/16/23 14:55 Assessment and Plan Assessment & Plan (1) Type 2 diabetes mellitus with hyperglycemia: Comment: Dr. Will Code(s): E11.65 - Type 2 diabetes mellitus with hyperglycemia Qualifiers: Diabetes mellitus prison insulin use: without technician terminal and repeater use Qualified Code(s): E11.65 - Type 2 diabetes mellitus with hyperglycemia Plan: Decrease the amount of carbohydrate intake, pasta, bread, rice and potatoes are all sugar and that is aside from all the sweet stuff, remember that fruits are good but they are Sweet also. Hemoglobin A1c goal of less than 6.5 patient is taking Tresiba 24 units twice a day metformin 500 mg twice a day (2) Hypercholesterolemia: Code(s): E78.00 - Pure hypercholesterolemia, unspecified Plan: Avoid fried foods, chicken skin, eggs, butter margarine, pastries and meat. Be it pork or beef they have a lot of cholesterol LDL goal of less than 100. Patient is advised to get blood work done (3) SWAN (nonalcoholic steatohepatitis): Comment: 02/2020 NORMAL RENAL PANEL EXCEPT FOR AN elevated nonfasting glucose of 207, AST/ALT 27/36 with remainder normal, hemoglobin A1c is 6.2, vitamin B12 folate are normal, CBC shows borderline anemia normocytic, normochromic, intrinsic factor antibodies are negative, parietal cell L it antibodies are not elevated, IgG panel is completely normal, mitochondrial antibodies are negative, smooth muscle antibodies are negative, CURRENT Laboratory Tests Alpha fetoprotein not obtained a 10/07/2303/21/23 [id number]:[id number] Plt Count 341 Estimated GFR 46 Total Bilirubin 0.5 AST 27 ALT 26 Alkaline Phosphatase 156 H ULTRASOUND OF THE ABDOMEN 09/02/22 IMPRESSION: There is subtly increased hepatic echogenicity. Mild hepatic steatosis could give this appearance. Code(s): K75.81 - Nonalcoholic steatohepatitis (SWAN) Plan: Low-fat diet and exercise (4) Obesity (BMI 30-39.9): Code(s): E66.9 - Obesity, unspecified Plan: Diet and exercise (5) Hypothyroidism: Code(s): E03.9 - Hypothyroidism, unspecified Plan: Continue with thyroid medication (6) Generalized anxiety disorder: Comment: [facility] every other week mt. Nava Code(s): F41.1 - Generalized anxiety disorder Plan: Continue with counseling and treatment (7) Snoring: Code(s): R06.83 - Snoring Plan: Patient has seen ear nose and throat and advised sleep study- this was done - awaiting final result (8) Foul smelling urine: Code(s): R82.90 - Unspecified abnormal findings in urine Plan: will check US Orders: Orders Thyroid Stimulating Hormone Today E11.65 - Type 2 diabetes mellitus with hyperglycemia AMB Urinalysis Automated Today R30.0 - Dysuria, Z13.9 - Encounter for screening, unspecified AMB Hemoglobin A1c Today Z13.9 - Encounter for screening, unspecified Complete Blood Count Auto Diff Today E11.65 - Type 2 diabetes mellitus with hyperglycemia Comprehensive Met. Panel Today E11.65 - Type 2 diabetes mellitus with hyperglycemia Lipid Panel Today E11.65 - Type 2 diabetes mellitus with hyperglycemia, E78.00 - Pure hypercholesterolemia, unspecified Free T4 (Free Thyroxine) Today E11.65 - Type 2 diabetes mellitus with hyperglycemia Microalbumin, Random (w Creat) Today E11.65 - Type 2 diabetes mellitus with hyperglycemia Medications: Refilled pen needle, diabetic (1st Tier Unifine Pentips) As directed inject twice per day 200 ea 3RF E11.65 - Type 2 diabetes mellitus with hyperglycemia Discontinued levofloxacin Discontinued Reason: Patient Refused 750 mg PO DAILY 10 tabs 0RF Coding Level of Care Code Est Pt Level 4 (77163) Diagnoses Type 2 diabetes mellitus with hyperglycemia, without long-term current use of insulin E11.65 Diabetes mellitus technician terminal and repeater insulin use: without prison use Hypercholesterolemia E78.00 SWAN (nonalcoholic steatohepatitis) K75.81 Obesity (BMI 30-39.9) E66.9 Hypothyroidism E03.9 Generalized anxiety disorder F41.1 Snoring R06.83 Foul smelling urine R82.90
[2023-05-16 14:20] VITALS: BP 118/72; PULSE 88; O2SAT 98; BMI 36.4
== END 2023-05-16 15:09 | disposition home or self-care (01) ==
PROVIDERS: PCP Internal Medicine; Visit Provider Internal Medicine
DX: E11.65 Type 2 diabetes mellitus with hyperglycemia (principal); E78.00 Pure hypercholesterolemia, unspecified; Z68.36 Body mass index [BMI] 36.0-36.9, adult; K75.81 Nonalcoholic steatohepatitis (NASH); R30.0 Dysuria; E66.9 Obesity, unspecified; E03.9 Hypothyroidism, unspecified; F41.1 Generalized anxiety disorder; R06.83 Snoring; R82.90 Unspecified abnormal findings in urine
CPT/HCPCS: 81003; 83036; 99214

== ENCOUNTER 2023-06-27 08:41 | Outpatient (REF) | payer OTHER, SELFPAY ==
[2023-06-27 09:51] LABS: Alanine Aminotransferase 21 U/L (0-31); Albumin Level 3.9 g/dL (3.5-5.0); Alkaline Phosphatase 126 U/L (39-117); Anion Gap 11 (12-20); Aspartate Amino Transferase 21 U/L (5-31); Bilirubin Total 0.3 mg/dL (0.0-1.0); Blood Urea Nitrogen 13 mg/dL (9-16); Calcium 9.3 mg/dL (8.4-10.2); Carbon Dioxide 26 mmol/L (22-29); Chloride 107 mmol/L (96-108); Estimated Glomerular Filt Rate > 60; Glucose Random 158 mg/dL (60-115); Phosphorus 2.7 mg/dL (2.7-4.5); Potassium 4.1 mmol/L (3.3-5.1); Sodium 140 mmol/L (135-145); Total Protein 7.5 g/dL (6.5-8.0)
[2023-06-27 10:13] LABS: Free T4 (Free Thyroxine) 0.85 ng/dL (0.71-1.85); Thyroid Stimulating Hormone 2.53 uIU/mL (0.32-4.0); Vitamin D 25-OH Total 54.8 ng/mL (>30)
[2023-06-30 17:17] LABS: Calcium (PTHI) 9.2 mg/dL (8.6-10.4); PTHI 41 pg/mL (16-77)
[2023-07-03 21:38] LABS: N-Telopeptide 13 (see note); NTXCreaRU 73 mg/dL (20-275)
== END 2023-06-27 08:42 | disposition home or self-care (01) ==
LOC: HO.LAB 08:41
PROVIDERS: PCP Internal Medicine; Visit Provider Internal Medicine
DX: E55.9 Vitamin D deficiency, unspecified (principal); E03.9 Hypothyroidism, unspecified; E04.9 Nontoxic goiter, unspecified; M81.0 Age-related osteoporosis without current pathological fracture
CPT/HCPCS: 36415; 80053; 82306; 82523; 83970; 84100; 84439; 84443

== ENCOUNTER 2023-06-30 15:58 | Outpatient (AMB) | payer OTHER, SELFPAY ==
--- NOTE | 2023-06-30 16:00 | A.OFFVIS_ITS ---
Intake Vital Signs 06/30/23 16:02 Height 4 ft 7.51 in Weight 141 lb 12.116 oz BMI 32.3 BP 116/76 Blood Pressure Location Lt brachial Position Sitting Pulse 78 Pulse Source Pulse Oximeter Intake Visit Reasons: F/U Osteoporosis. 's pt Intake Note: Patient present for Osteoporosis follow up visit. Previously followed by Dr. Del Cid. Poly Packer And Heat Sealer Required: Yes Poly Packer And Heat Sealer Language: Fly Fishing Guide Name: Dary, Ship Superintendent Information Interpreted: non-clinical & clinical Accompanied by: Self / Same As Patient Allergies apple [Apple] Allergy (Severe, Verified 06/30/23 16:05) SWELLING/HIVES nut - unspecified [nut] Allergy (Severe, Verified 06/30/23 16:05) SWELLING/HIVES orange Allergy (Severe, Verified 06/30/23 16:05) SWELLING/HIVES peanut [Peanut] Allergy (Severe, Verified 06/30/23 16:05) SWELLING/HIVES penicillin V Allergy (Severe, Verified 06/30/23 16:05) rash Pork/Porcine Containing Products [Pork/Porcine Product Derivatives] Allergy (Severe, Verified 06/30/23 16:05) SWELLING/HIVES strawberry [[place]] Allergy (Severe, Verified 06/30/23 16:05) SWELLING/HIVES raloxifene [Evista] Allergy (Intermediate, Verified 06/30/23 16:05) Unknown citalopram Allergy (Unknown, Verified 06/30/23 16:05) numbness legs,hands Penicillins Allergy (Unknown, Verified 06/30/23 16:05) RASH metoclopramide Adverse Reaction (Unknown, Verified 06/30/23 16:05) AGITATION From Soy Allergy (Severe, Uncoded 06/30/23 16:05) SWELLING,HIVES Medication List - Last Reconciled 06/30/23 by Tyler Baum MD alendronate (Fosamax) 70 mg PO QWEEK 30 days blood sugar diagnostic (FreeStyle Lite Strips) 1 strip miscellaneous TID blood-glucose meter (FreeStyle Lite Meter kit) As directed check the blood sugar 3 times a day calcium citrate 500 mg (2 x 250 mg calcium) PO BID 90 days cholecalciferol (vitamin D3) (Vitamin D3) 25 mcg PO DAILY cyanocobalamin (vitamin B-12) 1,000 mcg PO DAILY diclofenac sodium 1% (Voltaren Arthritis Pain) 2 grams topical QID dicyclomine 10 mg PO TID diphenhydramine HCl (Banophen) 25 mg PO TID PRN fluticasone propionate 50 mcg/actuation 1 spray intranasal DAILY insulin degludec (Tresiba FlexTouch U-100 insulin) 24 units (0.24 mL) subcut BID 30 days lancets (FreeStyle Lancets) As directed check the BS TID linaclotide (Linzess) 290 mcg PO DAILY loratadine 10 mg PO DAILY lorazepam 1/2 tab QD and 1 at bedtime; metformin 500 mg PO BIDWMEAL mirtazapine 15 mg PO BEDTIME pantoprazole 40 mg PO BID pen needle, diabetic (1st Tier Unifine Pentips) As directed inject twice per day sertraline 50 mg PO DAILY simethicone 180 mg PO TIDWMEAL 30 days simvastatin 10 mg PO BEDTIME HPI HPI Comments History of Present Illness Details 62 YO Female with PMHx Osteoporosis who is seen in F/U for the same. She was previously followed by Dr. Carolina. The patient last saw Dr. Del Cid on 12/30/2022 First diagnosed many years ago. Received treatment in the past with Evista for approximately 3 months, but developed a DVT so this was stopped. She then received IV Reclast for 2 doses, and switched to Prolia. It is unclear exactly when her doses of Prolia were, but she apparently received 5 doses thus far, beginning 2018, and her most recent 06/18/2021. She was then switched to PO Fosamax as of 12/2021 and remains on this weekly. She is tolerating this well. No history of pathologic fracture or ONJ. Has 1 servings of dietary calcium per day in the form of milk. Takes Calcium supplement 500 mg once daily. Takes 1000 IU of Vitamin D daily. Uses PPI daily. Had a prior DVT and did use a short course of anticoagulant, though she does not recall the name. Denies ever using an antiepileptic or glucocorticoid medication. Does weight bearing exercise 7 days per week in the form of walking. Fracture history: Denies Height loss: Reports losing height, but unable to quantify. 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 Menses were always regular. G3G3. She did not breastfeed. Menopause was age 56. She did not use HRT after. Denies history of Kidney stones: Denies family history of Osteoporosis or hip fracture. Was seeing the dentist regularly. Has not in over 6 months. No planned upcoming dental work or extractions. DXA dated 12/06/2021: FINDINGS: AP SPINE L1-L4: Current: BMD 0.917 g/cm2, Z-score -0.9, T-score -2.2, osteopenia, 4.8% decrease from previous, 3.3% increase from baseline (<5% change is not significant). Prior: BMD 0.963 g/cm2. Baseline: BMD 0.888 g/cm2. LEFT FEMUR, NECK: Current: BMD 0.904 g/cm2, Z-score 0.3, T-score -1.0, normal. Prior: BMD 0.868 g/cm2. Baseline: BMD 0.904 g/cm2. LEFT FEMUR, TOTAL: Current: BMD 1.025 g/cm2, Z-score 1.1, T-score 0.1, normal, 1.2% decrease from previous, 0.4% decrease from baseline (<5% change is not significant). Prior: BMD 1.037 g/cm2. Baseline: BMD 1.029 g/cm2. Thyroid US: 06/24/2022 Right Thyroid Lobe: 4.1 x 1.2 x 1.4 cm, volume 3.6 mL. Parenchyma: The gland echotexture is homogeneous. Thyroid vascularity is normal. Left Thyroid Lobe: 3.3 x 1.2 x 1.1 cm, volume 2.3 mL. Parenchyma: The gland echotexture is homogeneous. Thyroid vascularity is normal. Isthmus: 0.3 cm in maximum AP dimension. Estimated total number of nodules greater than or equal to 1 cm: 0. Thread Grinder Tool nodules are described as follows: 1. Location: Right lower pole. ?? ? Size: 0.3 x 0.2 x 0.4 cm, volume 0.01 mL. ?? ? Nodule characteristics: ?? ? Composition: Solid/almost completely solid (2). ?? ? Echogenicity: Isoechoic (1). ?? ? Shape: Not taller than wide (0). ?? ? Margins: Ill-defined (0). ?? ? Echogenic Foci: None ?? ? ACR TI-RADS total points: 3 ?? ? ACR TI-RADS category: 3 2. Location: Left medial/lower pole. ?? ? Size: 0.8 x 0.4 x 0.4 cm, volume 0.1 mL. ?? ? Nodule characteristics: ?? ? Composition: Mixed cystic and solid (1). ?? ? Echogenicity: Isoechoic (1). ?? ? Shape: Not taller than wide (0). ?? ? Margins: Ill-defined (0). ?? ? Echogenic Foci: Comet-tail artifacts (0). ?? ? ACR TI-RADS total points: 2 ?? ? ACR TI-RADS category: 2 NODES: No lymphadenopathy is seen in the tissue surrounding the thyroid gland. Labs: Laboratory Tests 12/06/22 12/06/22 12/06/22 08:40 08:42 08:42 Creatinine 1.19 Estimated GFR 46 Albumin 4.2 N-Telopeptide X-li nked 9 25-OH Vitamin D To ángel 54.8 TSH 2.98 PTH Intact 14 L Calcium (PTH Intac t) 9.7 PFSH Medical History (Updated 05/16/23 @ 14:50 by Lamont Nino MD) RLQ abdominal pain Goiter Hypothyroidism Vitamin D deficiency Obesity (BMI 30-39.9) Hypercholesterolemia Type 2 diabetes mellitus with hyperglycemia Hip osteoarthritis Anxiety and depression Gastroparesis GERD (gastroesophageal reflux disease) Vitamin D deficiency Osteoporosis Surgical History Hx of breast biopsy Hx of cholecystectomy Hx of colonoscopy Hx of esophagogastroduodenoscopy Hx of foot surgery Hx of tonsillectomy Hx of tubal ligation Family History Father Alcoholism Mother Dementia Diabetes Heart disease Myocardial infarct Sister Breast cancer Brother Lung cancer Myocardial infarct Maternal Uncle Colon cancer Other Mental health disorder Substance use disorder Social History Housing: Apartment Alcohol intake: never Patient Tobacco Use Status: Never used Tobacco e-Cigarette/Vaping Use: Never Used Second Hand Smoke Exposure: No service: No Current occupational status: employed Cognitive needs: No Hearing needs: No Vision needs: Yes (Glasses) Physical Exam Vital Signs: Last Vital Signs Pulse 78 11/13/23 16:02 BP 116/76 06/30/23 16:02 BMI result Body Mass Index 32.3 Assessment & Plan Assessment & Plan (1) Osteoporosis: Comment: November 2021 Code(s): M81.0 - Age-related osteoporosis without current pathological fracture Qualifiers: Osteoporosis type: age-related Presence of current pathological fracture: without current pathological fracture Qualified Code(s): M81.0 - Age- related osteoporosis without current pathological fracture Plan: This 63-year-old female with a history of osteoporosis initially treated Reclast then Prolia followed by oral bisphosphonate for over year. Recent DEXA shows the presence of low bone mass. Patient has not had a fracture. Plan is to consider drug holiday and discontinue the bisphosphonate. Should continue the calcium and vitamin-D supplementation Coding Level of Care Code Est Pt Level 3 (39372) Diagnoses Age-related osteoporosis without current pathological fracture M81.0 Osteoporosis type: age-related Presence of current pathological fracture: without current pathological fracture
[2023-06-30 16:02] VITALS: BP 116/76; PULSE 78; BMI 32.3
== END 2023-06-30 16:27 | disposition home or self-care (01) ==
PROVIDERS: PCP Internal Medicine; Visit Provider Internal Medicine Endocrinology, Diabetes & Metabolism
DX: M81.0 Age-related osteoporosis without current pathological fracture (principal)
CPT/HCPCS: 99213

== ENCOUNTER → 2023-06-30 15:58 | Outpatient (BNVA) | payer OTHER, SELFPAY | PROVIDERS: Visit Provider Internal Medicine Endocrinology, Diabetes & Metabolism | DX: M81.0 Age-related osteoporosis without current pathological fracture (principal) | CPT/HCPCS: 99212 ==

== ENCOUNTER 2023-07-15 07:54 | Outpatient (AMB) | payer OTHER, SELFPAY ==
--- NOTE | 2023-07-15 08:08 | A.OFFVIS_ITS ---
Intake Vital Signs 07/15/23 08:24 Height 4 ft 7.5 in Weight 139 lb BMI 31.7 BP 126/70 Blood Pressure Location Lt brachial Position Sitting Pulse 78 Intake Visit Reasons: 6 months follow up Intake Note: Patient follow up Patient denies any GI issues. Director Operations Broadcast Required: No Accompanied by: Self / Same As Patient Allergies apple [Apple] Allergy (Severe, Verified 07/15/23 08:22) SWELLING/HIVES nut - unspecified [nut] Allergy (Severe, Verified 07/15/23 08:22) SWELLING/HIVES orange Allergy (Severe, Verified 07/15/23 08:22) SWELLING/HIVES peanut [Peanut] Allergy (Severe, Verified 07/15/23 08:22) SWELLING/HIVES penicillin V Allergy (Severe, Verified 07/15/23 08:22) rash Pork/Porcine Containing Products [Pork/Porcine Product Derivatives] Allergy (Severe, Verified 07/15/23 08:22) SWELLING/HIVES strawberry [[place]] Allergy (Severe, Verified 07/15/23 08:22) SWELLING/HIVES raloxifene [[place]] Allergy (Intermediate, Verified 07/15/23 08:22) Unknown citalopram Allergy (Unknown, Verified 07/15/23 08:22) numbness legs,hands Penicillins Allergy (Unknown, Verified 07/15/23 08:22) RASH metoclopramide Adverse Reaction (Unknown, Verified 07/15/23 08:22) AGITATION From Soy Allergy (Severe, Uncoded 06/30/23 16:05) SWELLING,HIVES HPI 6 months follow up HPI Details Assessment & Plan (1) Chronic idiopathic constipation: Code(s): K59.04 - Chronic idiopathic constipation Plan: [place] #dNinja, LIve She continues to do very well on her Linzess 290 micro g and is no longer using bisacodyl. Her pantoprazole twice a day is controlling her heartburn well. She also utilizes dicyclomine occasionally for cramping, simethicone for bloating. It looks like she has had a slight increase in hepatic echogenicity, she has not gained weight. While she is on aware of her blood sugar control there is an ambulatory A1c from September that shows it to be 6.5% so it appears that her diabetes is controlled. She does not drink alcohol. She was again counseled about weight loss and sugar control in order to best protect her liver but we will of course continue to monitor it. The alpha fetoprotein was not obtained and I question whether this might be insurance mediated problem. Return office visit in 6 months and at that time we will we order an ultrasound and lab work. (2) SWAN (nonalcoholic steatohepatitis): Comment: 02/2020 NORMAL RENAL PANEL EXCEPT FOR AN elevated nonfasting glucose of 207, AST/ALT 27/36 with remainder normal, hemoglobin A1c is 6.2, vitamin B12 folate are normal, CBC shows borderline anemia normocytic, normochromic, intrinsic factor antibodies are negative, parietal cell L it antibodies are not elevated, IgG panel is completely normal, mitochondrial antibodies are negative, smooth muscle antibodies are negative, CURRENT Laboratory Tests Alpha fetoprotein not obtained a 10/07/2303/21/23 17:3008:[id number] Plt Count 341 Estimated GFR 46 Total Bilirubin 0.5 AST 27 ALT 26 Alkaline Phosphatase 156 H ULTRASOUND OF THE ABDOMEN 09/02/22 IMPRESSION: There is subtly increased hepatic echogenicity. Mild hepatic steatosis could give this appearance. Code(s): K75.81 - Nonalcoholic steatohepatitis (SWAN) (3) GERD (gastroesophageal reflux diseas e): Comment: Hiatal hernia, gastritis gastroparesis Code(s): K21.9 - Gastro-esophageal reflux disease without esophagitis Qualifiers: Esophagitis presence: without esophagitis Qualified Code(s): K21.9 - Gastro-esophageal reflux disease without esophagitis (4) Tubular adenoma of colon: Comment: 2019=TA repeat 2023 aeb Code(s): D12.6 - Benign neoplasm of colon, unspecified Medications: Refilled linaclotide (Linzess) 290 mcg PO DAILY 30 caps 6RF K59.04 - Chronic idiopathic constipation pantoprazole 40 mg PO BID 180 tabs 3RF simethicone after meals 180 mg PO TIDWMEAL 30 days 90 caps 6RF R14.0 - Abdominal distension (gaseous) dicyclomine 10 mg PO TID 270 caps 1RF Discontinued bisacodyl (Dulcolax (bisacodyl)) Discontinued Reason: Patient no longer taking 10 mg (2 x 5 mg) PO BEDTIME 30 days 60 t abs 6RF K59.04 - Chronic idiopathic constipation TODAYS VISIT She continues to do well on her Linzess 290 micro g, her pantoprazole 40 mg twice a day, her simethicone, and occasional dicyclomine cramping. She has bisacodyl at her disposal is well but has not had to use. She had a really good things giving her daughter and she is feeling quite well. She has no new health problems to report. I let her know that she is due for repeat colonoscopy next year and she is agreeable; but she does express that she does not like drinking the prep. Suprep looks like it is covered under her insurance so will try to get a lower volume for her to make it easier. She is due again for blood work and an ultrasound for SWAN and this time will order 1 with elastography since she seems to have an increase in her echotexture on the last study. However looking at some of her random labs it appears that her transaminases have improved along with improving her diabetes control. Her hemoglobin A1c is dropped from 7.7% to 6.6% which is excellent. She denies any respiratory or cardiac problems. There are no prior problems with anesthesia or sedation. There are no infectious disease problems. She had a tubular adenoma in her 2019 colonoscopy. [facility] Medical History (Updated 07/15/23 @ 08:20 by PHIL Wang) RLQ abdominal pain Goiter Hypothyroidism Vitamin D deficiency Obesity (BMI 30-39.9) Hypercholesterolemia Type 2 diabetes mellitus with hyperglycemia Hip osteoarthritis Anxiety and depression Gastroparesis GERD (gastroesophageal reflux disease) Vitamin D deficiency Osteoporosis Surgical History Hx of foot surgery Hx of breast biopsy Hx of colonoscopy Hx of cholecystectomy Hx of tonsillectomy Hx of tubal ligation Hx of esophagogastroduodenoscopy Family History Father Alcoholism Mother Dementia Diabetes Heart disease Myocardial infarct Sister Breast cancer Brother Lung cancer Myocardial infarct Maternal Uncle Colon cancer Other Mental health disorder Substance use disorder Housing: Apartment Alcohol intake: never Patient Tobacco Use Status: Never used Tobacco e-Cigarette/Vaping Use: Never Used Second Hand Smoke Exposure: No service: No Current occupational status: employed Cognitive needs: No Hearing needs: No Vision needs: Yes (Glasses) Review of Systems Const Denies fatigue, Denies fever(s), Denies night sweats, Denies poor appetite and Denies weight loss Eyes Details: glasses Reports requires corrective lenses ENT Reports Normal hearing present, Denies dental pain, Denies dysphagia, Denies hearing loss, Denies mouth pain, Denies odynophagia, Denies throat swelling, Denies tongue swelling and Reports other (Dentition adequate) Card Reports no additional complaints Resp Reports no additional complaints GI Denies abdominal pain, Denies melena, Reports bloating, Denies hematochezia, Reports constipation, Denies GI cramping, Denies dysphagia, Denies excessive flatus, Denies early satiety, Reports heartburn, Denies diarrhea, Denies nausea, Denies odynophagia, Denies vomiting and Denies hematemesis Skin/Breast Denies pruritus, Denies lesions, Denies rash and Denies jaundice Neuro Reports Normal hearing present and Denies Abnormal speech present Endo Denies fatigue Aller/Immun Denies throat swelling and Denies tongue swelling Physical Exam Const General: cooperative, no acute distress, well developed and well groomed Nutritional Appearance: well nourished and obese Orientation/consciousness: oriented to person, oriented to place and oriented to time Limitations: language barrier HEENT Head: Yes normocephalic and Yes atraumatic Eyes General: appearance normal, both eyes and all related structures Pupils: Equal, round and reactive pupils present Neck Neck: Yes normal visual inspection and Yes no lymphadenopathy Thyroid: Thyroid normal Resp Effort & Inspection: normal respiratory effort and able to speak in complete sentences Auscultation: clear to auscultation bilaterally Cardio Rate: regular rate Rhythm: regular rhythm Heart sounds: Normal, physiologic split S2 sound present Peripheral pulses: radial pulses present and posterior tibial pulses present GI Inspection: No distended, No Abdominal panniculus present and Yes obesity Palpation (GI): Soft to palpation, nontender, no guarding, not rigid and No hepatosplenomegaly present Percussion: Yes normal to percussion Auscultation: normal bowel sounds Rectal Exam - Female: deferred Skin General skin exam: no rashes or lesions noted, turgor normal, skin not dry, no jaundice, No spider nevi and no striae Rashes: no rashes Nails: normal Neuro General: oriented to person, oriented to place and oriented to time Cranial nerves: Yes Equal, round and reactive pupils present and Yes Normal hearing present Speech: No Abnormal speech present Extrem General: Yes normal to inspection, No clubbing, No cyanosis and No edema Psych Appearance: grossly normal and well kempt Mental Status: mental status grossly normal Speech and movement: Normal speech and movement present Affect: normal affect Attitude: cooperative Thought process: Normal thought process present and not confabulating Thought content: Normal thought content present Insight: Limited insight present (Psych) Judgement: Limited judgement present (Psych) Results Reviewed Results Reviewed: Laboratory Tests 10/07/22 05/16/23 06/27/23 17:30 14:24 09:03 WBC 7.3 Hgb 11.7 L Hct 36.6 L Estimated GFR > 60 Hgb A1c (Clinic) 6.6 H Total Bilirubin AST ALT Alkaline Phosphatase TSH Free T4 06/27/23 09:03 WBC Hgb Hct Estimated GFR Hgb A1c (Clinic) Total Bilirubin 0.3 AST 21 ALT 21 Alkaline Phosphatase 126 H TSH 2.53 Free T4 0.85 Assessment & Plan Assessment & Plan (1) Chronic idiopathic constipation: Code(s): K59.04 - Chronic idiopathic constipation Plan: She continues to do well on her Linzess 290 micro g, her pantoprazole 40 mg twice a day, her simethicone, and occasional dicyclomine cramping. She has bisacodyl at her disposal is well but has not had to use. She had a really good things giving her daughter and she is feeling quite well. She has no new health problems to report. I let her know that she is due for repeat colonoscopy next year and she is agreeable; but she does express that she does not like drinking the prep. Suprep looks like it is covered under her insurance so will try to get a lower volume for her to make it easier. She is due again for blood work and an ultrasound for SWAN and this time will order 1 with elastography since she seems to have an increase in her echotexture on the last study. However looking at some of her random labs it appears that her transaminases have improved along with improving her diabetes control. Her hemoglobin A1c is dropped from 7.7% to 6.6% which is excellent. She denies any respiratory or cardiac problems. There are no prior problems with anesthesia or sedation. There are no infectious disease problems. She had a tubular adenoma in her 2019 colonoscopy. (2) SWAN (nonalcoholic steatohepatitis): Comment: 02/2020 NORMAL RENAL PANEL EXCEPT FOR AN elevated nonfasting glucose of 207, T/ALT 27/36 with remainder normal, hemoglobin A1c is 6.2, vitamin B12 folate are normal, CBC shows borderline anemia normocytic, normochromic, intrinsic factor antibodies are negative, parietal cell L it antibodies are not elevated, IgG panel is completely normal, mitochondrial antibodies are negative, smooth muscle antibodies are negative, CURRENT Laboratory Tests Alpha fetoprotein not obtained a 10/07/2303/21/23 17:3008:42 Plt Count 341 Estimated GFR 46 Total Bilirubin 0.5 AST 27 ALT 26 Alkaline Phosphatase 156 H ULTRASOUND OF THE ABDOMEN 09/02/22 IMPRESSION: There is subtly increased hepatic echogenicity. Mild hepatic steatosis could give this appearance. Code(s): K75.81 - Nonalcoholic steatohepatitis (SWAN) (3) GERD (gastroesophageal reflux disease): Comment: Hiatal hernia, gastritis gastroparesis Code(s): K21.9 - Gastro-esophageal reflux disease without esophagitis Qualifiers: Esophagitis presence: without esophagitis Qualified Code(s): K21.9 - Gastro-esophageal reflux disease without esophagitis (4) Tubular adenoma of colon: Comment: 2019=TA repeat 2023 aeb Code(s): D12.6 - Benign neoplasm of colon, unspecified (5) Pre-op examination: Code(s): Z01.818 - Encounter for other preprocedural examination Orders: Orders Complete Blood Count Auto Diff Today D12.6 - Benign neoplasm of colon, unspecified, Z01.818 - Encounter for other preprocedural examination Comprehensive Met. Panel Today D12.6 - Benign neoplasm of colon, unspecified, Z01.818 - Encounter for other preprocedural examination US abdomen comp w elastography Today D12.6 - Benign neoplasm of colon, unspecified, Z01.818 - Encounter for other preprocedural examination Colonoscopy - GI Use Only Today D12.6 - Benign neoplasm of colon, unspecified, Z01.818 - Encounter for other preprocedural examination Medications: New sodium,potassium,mag sulfates 17.5-3.13-1.6 gram (Suprep Bowel Prep Kit) 480 mL orally; 354 mL 0RF Refilled linaclotide (Linzess) 290 mcg PO DAILY 30 caps 6RF K59.04 - Chronic idiopathic constipation dicyclomine 10 mg PO TID 270 caps 1RF pantoprazole 40 mg PO BID 180 tabs 3RF simethicone after meals 180 mg PO TIDWMEAL 30 days 90 caps 6RF R14.0 - Abdominal d istension (gaseous) Coding Level of Care Code Est Pt Level 4 (01700) Diagnoses Chronic idiopathic constipation K59.04 SWAN (nonalcoholic steatohepatitis) K75.81 Gastroesophageal reflux disease without esophagitis K21.9 Esophagitis presence: without esophagitis Tubular adenoma of colon D12.6 Pre-op examination Z01.818
[2023-07-15 08:24] VITALS: BP 126/70; PULSE 78; BMI 31.7
== END 2023-07-15 08:26 | disposition home or self-care (01) ==
PROVIDERS: Visit Provider Nurse Practitioner
DX: K59.04 Chronic idiopathic constipation (principal); K75.81 Nonalcoholic steatohepatitis (NASH); K21.9 Gastro-esophageal reflux disease without esophagitis; D12.6 Benign neoplasm of colon, unspecified; Z01.818 Encounter for other preprocedural examination
CPT/HCPCS: 99214

== ENCOUNTER → 2023-07-15 07:54 | Outpatient (BNVA) | payer OTHER, SELFPAY | PROVIDERS: Visit Provider Nurse Practitioner | DX: Z01.818 Encounter for other preprocedural examination (principal); D12.6 Benign neoplasm of colon, unspecified; K59.04 Chronic idiopathic constipation; K75.81 Nonalcoholic steatohepatitis (NASH); K21.9 Gastro-esophageal reflux disease without esophagitis | CPT/HCPCS: 99212 ==

== ENCOUNTER 2023-07-19 08:49 | Outpatient (REF) | payer OTHER, SELFPAY ==
--- NOTE | ~2023-07-19 | MM_ITS ---
EXAMINATION: MM SCREENING DIGITAL BREAST TOMOSYNTHESIS, BILATERAL CLINICAL INFORMATION: Screening. Asymptomatic. COMPARISON: Mammography: This study is compared with prior exams dating back to 2019. TECHNIQUE: Digital breast tomosynthesis is performed in both the craniocaudal and mediolateral oblique views along with computer-aided detection (CAD). Synthesized 2D images are generated from the tomosynthesis. FINDINGS: There are scattered areas of fibroglandular density (ACR BI-RADS breast composition Category b). There are no significant masses, abnormal calcifications, or other abnormalities. There is a biopsy tissue marker in the upper outer quadrant of the left breast. MM/MM tomosynthesis screening BI IMPRESSION: No mammographic evidence of malignancy. ASSESSMENT: BI-RADS BI-RADS 2 - Benign Findings RECOMMENDATION: Routine annual mammography screening. 1 year F/U This examination should not preclude the clinical evaluation of a suspicious palpable abnormality. This patient's information was entered into a reminder system with a target due date for their next mammogram.
[2023-07-19 09:27] LABS: MANUAL DIFF FLAG NO
[2023-07-19 09:44] LABS: Basophils Absolute Auto 0.1 X10*3/uL (0.0-0.2); Basophils Percent Auto 1.2 % (0-2); Eosinophils Absolute Auto 0.2 X10*3/uL (0.0-0.4); Eosinophils Percent Auto 3.7 % (0-4); Hemoglobin 11.8 g/dl (12.0-16.0); Imm Gran Abs Auto 0.01 X10*3/uL (0.00-0.03); Imm Gran Pct Auto 0.2 % (0.0-0.4); Lymphocytes Absolute Auto 1.9 X10*3/uL (1.2-4.9); Lymphocytes Percent Auto 32.7 % (20-40); Mean Corpuscular HGB Conc 32.8 g/dl (31.0-35.0); Mean Corpuscular Hemoglobin 28.7 pg (27.0-33.0); Mean Corpuscular Volume 87.6 fL (80.0-98.0); Mean Platelet Volume 9.5 fL (9.4-12.3); Monocytes Absolute Auto 0.4 X10*3/uL (0.1-1.2); Monocytes Percent Auto 6.7 % (2-11); Neutrophils Absolute Auto 3.1 x10*3/uL (2.0-8.3); Neutrophils Percent Auto 55.5 % (45-73); Platelet Count 297 X10*3/uL (160-400); Red Blood Count 4.11 X10*6/uL (4.20-5.50); Red Cell Distribution Width 14.1 % (11.0-16.0); White Blood Count 5.7 X10*3/uL (4.8-10.8)
[2023-07-19 10:40] LABS: Alanine Aminotransferase 25 U/L (0-31); Albumin Level 4.1 g/dL (3.5-5.0); Alkaline Phosphatase 131 U/L (39-117); Anion Gap 12 (12-20); Aspartate Amino Transferase 28 U/L (5-31); Bilirubin Total 0.4 mg/dL (0.0-1.0); Blood Urea Nitrogen 12 mg/dL (9-16); Calcium 9.4 mg/dL (8.4-10.2); Carbon Dioxide 22 mmol/L (22-29); Chloride 109 mmol/L (96-108); Cholesterol 108 mg/dL (<200); Estimated Glomerular Filt Rate 58; Glucose Random 140 mg/dL (60-115); HDL Cholesterol 33 mg/dL (>40); LDL Cholesterol Calculated 59 mg/dL (<100); Potassium 4.3 mmol/L (3.3-5.1); Sodium 139 mmol/L (135-145); Total Protein 7.7 g/dL (6.5-8.0); Triglycerides 82 mg/dL (<150)
[2023-07-19 10:45] LABS: Creatinine Urine 26.82 mg/dL; Microalbumin Urine < 5.0 mg/L
[2023-07-19 10:50] LABS: Thyroid Stimulating Hormone 2.39 uIU/mL (0.32-4.0)
[2023-07-19 10:52] LABS: Free T4 (Free Thyroxine) 0.92 ng/dL (0.71-1.85); Vitamin D 25-OH Total 51.9 ng/mL (>30)
== END 2023-07-19 08:50 | disposition home or self-care (01) ==
LOC: HO.MAMMO 08:49
PROVIDERS: Nurse Practitioner Family; PCP Internal Medicine; Referring Provider Nurse Practitioner; Visit Provider Internal Medicine
DX: Z01.818 Encounter for other preprocedural examination (principal); Z12.31 Encounter for screening mammogram for malignant neoplasm of breast; D12.6 Benign neoplasm of colon, unspecified; E11.65 Type 2 diabetes mellitus with hyperglycemia; E78.00 Pure hypercholesterolemia, unspecified; G62.9 Polyneuropathy, unspecified; M81.0 Age-related osteoporosis without current pathological fracture
CPT/HCPCS: 36415; 77063; 77067; 80053; 80061; 82306; 82570; 84439; 84443; 85025

== ENCOUNTER → 2023-07-19 09:15 | Outpatient (BNV) | payer OTHER, SELFPAY | PROVIDERS: PCP Internal Medicine; Referring Provider Nurse Practitioner; Visit Provider Radiology Diagnostic Radiology | DX: Z12.31 Encounter for screening mammogram for malignant neoplasm of breast (principal) | CPT/HCPCS: 77063; 77067 ==

== ENCOUNTER 2023-09-05 09:24 | Outpatient (AMB) | payer OTHER, SELFPAY ==
[2023-09-05 09:40] VITALS: BP 108/70; PULSE 82; TEMP 35.5; O2SAT 96; BMI 32.0
--- NOTE | 2023-09-05 09:40 | MHC.PC.OV ---
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 Accompanied by: Self / Same As Patient Allergies apple [Apple] Allergy (Severe, Verified 09/05/23 09:50) SWELLING/HIVES nut - unspecified [nut] Allergy (Severe, Verified 09/05/23 09:50) SWELLING/HIVES orange Allergy (Severe, Verified 09/05/23 09:50) SWELLING/HIVES peanut [Peanut] Allergy (Severe, Verified 09/05/23 09:50) SWELLING/HIVES penicillin V Allergy (Severe, Verified 09/05/23 09:50) rash Pork/Porcine Containing Products [Pork/Porcine Product Derivatives] Allergy (Severe, Verified 09/05/23 09:50) SWELLING/HIVES strawberry [Angwin] Allergy (Severe, Verified 09/05/23 09:50) SWELLING/HIVES raloxifene [Evista] Allergy (Intermediate, Verified 09/05/23 09:50) Unknown citalopram Allergy (Unknown, Verified 09/05/23 09:50) numbness legs,hands Penicillins Allergy (Unknown, Verified 09/05/23 09:50) RASH metoclopramide Adverse Reaction (Unknown, Verified 09/05/23 09:50) AGITATION From Soy Allergy (Severe, Uncoded 09/05/23 09:50) SWELLING,HIVES Medication List - Last Reconciled 09/05/23 by Lamont Nino MD alendronate (Fosamax) 70 mg PO QWEEK 30 days blood sugar diagnostic (FreeStyle Lite Strips) 1 strip miscellaneous TID blood-glucose meter (FreeStyle Lite Meter kit) As directed check the blood sugar 3 times a day calcium citrate 500 mg (2 x 250 mg calcium) PO BID 90 days cholecalciferol (vitamin D3) (Vitamin D3) 25 mcg PO DAILY cyanocobalamin (vitamin B-12) 1,000 mcg PO DAILY diclofenac sodium 1% (Voltaren Arthritis Pain) 2 grams topical QID dicyclomine 10 mg PO TID diphenhydramine HCl (Banophen) 25 mg PO TID PRN fluticasone propionate 50 mcg/actuation 1 spray intranasal DAILY insulin degludec (Tresiba FlexTouch U-100 insulin) 24 units (0.24 mL) subcut BID 30 days lancets (FreeStyle Lancets) As directed check the BS TID linaclotide (Linzess) 290 mcg PO DAILY loratadine 10 mg PO DAILY lorazepam 1/2 tab QD and 1 at bedtime; metformin 500 mg PO BIDWMEAL mirtazapine 15 mg PO BEDTIME pantoprazole 40 mg PO BID pen needle, diabetic (1st Tier Unifine Pentips) As directed inject twice per day semaglutide (Ozempic) 0.25 mg (0.368 mL) subcut QWEEK sertraline 50 mg PO DAILY simethicone 180 mg PO TIDWMEAL 30 days simvastatin 10 mg PO BEDTIME sodium,potassium,mag sulfates 17.5-3.13-1.6 gram (Suprep Bowel Prep Kit) 480 mL orally; Tobacco use date assessed: 09/05/23 Dental Screening Dental Screen Date: 09/05/23 Did you have a dental visit in the last 12 months?: No Did you have a dental problem in the last 6 months where you did not have access to dental care?: No Was dental information given to patient?: Patient has dentist HPI 3 Months F/U-DM HPI Details 63-year-old obese female with uncontrolled diabetes mellitus hypercholesterolemia hepatic steatosis hypothyroidism generalized anxiety disorder last seen in April 2023. Colonoscopy done February 2019 tubular adenoma mammogram is up-to-date. Patient does follow-up with Gastroenterology idiopathic constipation on Linzess GERD symptoms good with pantoprazole colonoscopy is December 2023. Patient also follows up with endocrinology for the osteoporosis June 2023 was on Reclast now Prolia then bisphosphonate advised drug holiday. Explain to the patient the whole idea of why we want to stop the alendronate. And patient did understand and advised to stop alendronate. Patient is getting very depressed because of the son will lives in [place] has not spoken with her. Discussed that this is really going to be the problem but this is something that she can not really change as his son is 40 years old now. Otherwise no other problems has a schedule with Ophthalmology October 2023. [facility] Medical History (Updated 09/05/23 @ 10:16 by Lamont Nino MD) RLQ abdominal pain Goiter Hypothyroidism Vitamin D deficiency Obesity (BMI 30-39.9) Hypercholesterolemia Type 2 diabetes mellitus with hyperglycemia Hip osteoarthritis Anxiety and depression Gastroparesis GERD (gastroesophageal reflux disease) Vitamin D deficiency Osteoporosis Surgical History Hx of foot surgery Hx of breast biopsy Hx of colonoscopy Hx of cholecystectomy Hx of tonsillectomy Hx of tubal ligation Hx of esophagogastroduodenoscopy Family History Father Alcoholism Mother Dementia Diabetes Heart disease Myocardial infarct Sister Breast cancer Brother Lung cancer Myocardial infarct Maternal Uncle Colon cancer Other Mental health disorder Substance use disorder Social History Housing: Apartment Alcohol intake: never Patient Tobacco Use Status: Never used Tobacco e-Cigarette/Vaping Use: Never Used Second Hand Smoke Exposure: No service: No Current occupational status: employed Cognitive needs: No Hearing needs: No Vision needs: Yes (Glasses) Questionnaire PHQ-9 Over the last 2 weeks, how often have you been bothered by any of the following problems? 1. Little interest or pleasure in doing things: more than half the days 2. Feeling down, depressed, or hopeless: more than half the days 3. Trouble falling or staying asleep, or sleeping too much: nearly every day 4. Feeling tired or having little energy: more than half the days 5. Poor appetite or overeating: more than half the days 6. Feeling bad about yourself - or that you are a failure or have let yourself or your family down: several days 7. Trouble concentrating on things, such as reading the newspaper or watching television: several days 8. Moving or speaking so slowly that other people could have noticed. Or the opposite - being so fidgety or restless that you have been moving around a lot more than usual: more than half the days 9. Thoughts that you would be better off or of hurting yourself in some way: nearly every day Total score: 18 06010 - PHQ-9 Billing: Yes Source: Developed by Drs. Tyler Lilly, Kandice BGerber Buck and colleagues, with an educational clarissa from [employer]. Thrive Questionnaire Date Thrive assessed: 09/05/23 I am a: Patient What is your living situation today?: I have a steady place to live Within the past 12 months, did the food you bought not last and you didn't have the money to get more?: Never true Within the past 12 months, did you worry whether your food would run out before you got money to buy more?: Never true Do you have trouble paying for medicines?: No Do you have trouble getting transportation to medical appointments?: No Do you have trouble paying your heating and electricity bill?: No Do you have trouble taking care of your child, family member or friend?: No Do you have trouble with day-to-day activities such as bathing, preparing meals, shopping, managing finances, etc.?: No Are you currently unemployed and looking for a job?: No Are you interested in more education?: No Please select the resources that you would like help with: None Currently or been in a relationship where the following occur: no concerns reported THRIVE Score: 0 AUDIT C Alcohol Use Questionnaire (AUDIT-C) 1. How often do you have a drink containing alcohol?: Never 3. How often do you have six or more drinks on one occasion?: Never Total Score: 0 Score Reviewed/Action Taken: No SEFERINO-7 AMB Questionnaire SEFERINO-7 Date SEFERINO - 7 assessed: 09/05/23 Feeling nervous, anxious, or on edge: 0 = Not at all Not being able to stop or control worryin = More than half the days Worrying too much about different things: 3 = Nearly every day Trouble relaxin = Several days Being so restless that it is hard to sit still: 2 = More than half the days Becoming easily annoyed or irritable: 1 = Several days Feeling afraid as if something awful might happen: 3 = Nearly every day Total SEFERINO-7 score (0-4 normal; 5-9 mild; 10-14 moderate; 15-21 severe): 12 Source: Developed by Drs. Tyler Lilly, Gerber Soares and colleagues, with an educational clarissa from [employer]. SEFERINO-7 Assessment Billing SEFERINO-7 Assessment Tool: SEFERINO-7 Assessment 67948 Physical exam (Primary Care) Vital Signs: Last Vital Signs Temp 96 F L 09/05/23 09:40 Pulse 82 09/05/23 09:40 BP 108/70 09/05/23 09:40 Pulse Ox 96 09/05/23 09:40 Oxygen Delivery Method Room Air 09/05/23 09:40 BMI result Body Mass Index 32.0 Tobacco/Smoking Status: Tobacco use Status Tobacco use date assessed 09/05/23 09/05/23 09:51 Patient Tobacco Use Status Never used Tobacco 09/05/23 09:42 e-Cigarette/Vaping Use Never Used 09/05/23 09:42 PHQ-9: PHQ-9 Score PHQ-9: Total score 18 09/05/23 09:58 Thrive Assessment: Date of Thrive Assessment Date Thrive assessed 09/05/23 09/05/23 09:51 Currently or been in a relationship where the following occur: no concerns reported Const General: alert; No acute distress Eyes Conjunctivae: conjunctivae normal Resp Auscultation: clear to auscultation bilaterally Cardio Rate: regular rate Rhythm: regular rhythm GI Inspection: Yes normal to inspection Extrem General: Yes normal to inspection and No edema Results AMB Hemoglobin A1c AMB Hemoglobin A1c 6.8 % Last Edit by SREE Anderson on 09/05/23 09:58 Results Reviewed Results Reviewed: Laboratory Last Values Hgb A1c (Clinic) 6.8 % (4.0-6.0) H 09/05/23 09:37 Assessment and Plan Assessment & Plan (1) Type 2 diabetes mellitus with hyperglycemia: Comment: Dr. Will 10/2022 Code(s): E11.65 - Type 2 diabetes mellitus with hyperglycemia Qualifiers: Diabetes mellitus penitentiary insulin use: without intermediate teacher use Qualified Code(s): E11.65 - Type 2 diabetes mellitus with hyperglycemia Plan: Decrease the amount of carbohydrate intake, pasta, bread, rice and potatoes are all sugar and that is aside from all the sweet stuff, remember that fruits are good but they are Sweet also. Hemoglobin A1c goal of less than 6.5. Patient is presently on Tresiba 24 metformin 500 mg twice a day (2) Hypercholesterolemia: Code(s): E78.00 - Pure hypercholesterolemia, unspecified Plan: Avoid fried foods, chicken skin, eggs, butter margarine, pastries and meat. Be it pork or beef they have a lot of cholesterol LDL goal of less than 100 and triglyceride of less than 150 patient takes simvastatin 10 mg once a day July 2023 blood work good (3) GERD (gastroesophageal reflux disease): Comment: Hiatal hernia, gastritis gastroparesis Code(s): K21.9 - Gastro-esophageal reflux disease without esophagitis Qualifiers: Esophagitis presence: without esophagitis Qualified Code(s): K21.9 - Gastro-esophageal reflux disease without esophagitis Plan: Avoid the foods that causes that usually spicy foods, tomato products, juices, coffee, soda and foods that your sensitive to. After eating do not lie down, allow 3-4 hours before in lie down. And keep the head of bed above 30 degrees to avoid the acid from going up. (4) Osteoporosis: Comment: November 2021 Code(s): M81.0 - Age-related osteoporosis without current pathological fracture Qualifiers: Osteoporosis type: age-related Presence of current pathological fracture: without current pathological fracture Qualified Code(s): M81.0 - Age-related osteoporosis without current pathological fracture Plan: Patient is being followed up by Endocrinology and has advised to hold off from Fosamax for a drug holiday. (5) Generalized anxiety disorder: Comment: [facility] every other week Elijah Code(s): F41.1 - Generalized anxiety disorder Plan: Continue with present medication and counseling. feeling depressed and has talked to psychiatrist and had side effects on increase in dose (6) Hypothyroidism: Code(s): E03.9 - Hypothyroidism, unspecified Plan: Continue with thyroid medication July 2023 last blood work (7) Tubular adenoma of colon: Comment: 2019=TA repeat 2023 aeb Code(s): D12.6 - Benign neoplasm of colon, unspecified Plan: Patient has a planned colonoscopy in December 2023 (8) Obesity (BMI 30-39.9): Code(s): E66.9 - Obesity, unspecified Plan: Diet and exercise (9) Chronic idiopathic constipation: Code(s): K59.04 - Chronic idiopathic constipation Plan: Three rules for constipation 1. Diet need to have a high fiber diet less of meat 2. Increase oral fluids 3. Exercise patient sees Gastroenterology and has been placed on [employer] Orders: Orders AMB Hemoglobin A1c Today E11.65 - Type 2 diabetes mellitus with hyperglycemia Medications: New semaglutide (Ozempic) for 4 weeks 0.25 mg (0.368 mL) subcut QWEEK 3 mL 1RF E11.65 - Type 2 diabetes mellitus with hyperglycemia Discontinued alendronate (Fosamax) Discontinued Reason: Doctor's Order 70 mg PO QWEEK 30 days 4 tabs 11RF Coding Level of Care Code Est Pt Level 4 (94124) Diagnoses Type 2 diabetes mellitus with hyperglycemia, without long-term current use of insulin E11.65 Diabetes mellitus intermediate teacher insulin use: without intermediate teacher use Hypercholesterolemia E78.00 Gastroesophageal reflux disease without esophagitis K21.9 Esophagitis presence: without esophagitis Age-related osteoporosis without current pathological fracture M81.0 Osteoporosis type: age-related Presence of current pathological fracture: without current pathological fracture Generalized anxiety disorder F41.1 Hypothyroidism E03.9 Tubular adenoma of colon D12.6 Obesity (BMI 30-39.9) E66.9 Chronic idiopathic constipation K59.04 Additional Codes SEFERINO-7 Assessment Billing - SEFERINO-7 Assessment Tool: SEFERINO-7 Assessment 47670 ([id number])
== END 2023-09-05 10:25 | disposition home or self-care (01) ==
PROVIDERS: PCP Internal Medicine; Visit Provider Internal Medicine
DX: E11.65 Type 2 diabetes mellitus with hyperglycemia (principal); E78.00 Pure hypercholesterolemia, unspecified; K21.9 Gastro-esophageal reflux disease without esophagitis; M81.0 Age-related osteoporosis without current pathological fracture; F41.1 Generalized anxiety disorder; E03.9 Hypothyroidism, unspecified; D12.6 Benign neoplasm of colon, unspecified; E66.9 Obesity, unspecified; K59.04 Chronic idiopathic constipation
CPT/HCPCS: 83036; 96127; 99214

== ENCOUNTER 2023-11-28 08:07 | Outpatient (AMB) | payer OTHER, SELFPAY ==
--- NOTE | 2023-11-28 08:12 | MHC.OFFWIV ---
Intake Vital Signs 11/28/23 08:18 Height 4 ft 7.5 in Weight 140 lb BMI 32.0 BP 108/66 Blood Pressure Location Lt brachial Position Sitting Pulse 70 Pulse Source Pulse Oximeter Temp 97.8 F Temp Source Oral Pulse Oximetry (%) 98 Oxygen Delivery Method Room Air Intake Visit Reasons: EP stomach pain nausea loose stools (lobby) Intake Note: pt is here for c.o stomach pain and a lot of burping that smells bad and its been going on for 3 weeks Patient Tobacco Use Status: Never used Tobacco Allergies apple [Apple] Allergy (Severe, Verified 11/28/23 08:19) SWELLING/HIVES nut - unspecified [nut] Allergy (Severe, Verified 11/28/23 08:19) SWELLING/HIVES orange Allergy (Severe, Verified 11/28/23 08:19) SWELLING/HIVES peanut [Peanut] Allergy (Severe, Verified 11/28/23 08:19) SWELLING/HIVES penicillin V Allergy (Severe, Verified 11/28/23 08:19) rash Pork/Porcine Containing Products [Pork/Porcine Product Derivatives] Allergy (Severe, Verified 11/28/23 08:19) SWELLING/HIVES strawberry [Gilead] Allergy (Severe, Verified 11/28/23 08:19) SWELLING/HIVES raloxifene [Evista] Allergy (Intermediate, Verified 11/28/23 08:19) Unknown citalopram Allergy (Unknown, Verified 11/28/23 08:19) numbness legs,hands Penicillins Allergy (Unknown, Verified 11/28/23 08:19) RASH metoclopramide Adverse Reaction (Unknown, Verified 11/28/23 08:19) AGITATION From Soy Allergy (Severe, Uncoded 09/05/23 09:50) SWELLING,HIVES Do you need a note to return to daycare/school/sports/work: No HPI HPI Comments History of Present Illness Details 63-year-old female presents today complaining of epigastric discomfort and increasing belching for the last 3 weeks. The patient states she has an endoscopy scheduled within the next few weeks. The patient reports some loose stools only in the evening. She does not relate her epigastric discomfort to any food she currently takes omeprazole. She denies any chest pain diaphoresis arm pain [facility] Medical History (Updated 11/28/23 @ 08:31 by PRAVIN Houser) RLQ abdominal pain Goiter Hypothyroidism Vitamin D deficiency Obesity (BMI 30-39.9) Hypercholesterolemia Type 2 diabetes mellitus with hyperglycemia Hip osteoarthritis Anxiety and depression Gastroparesis GERD (gastroesophageal reflux disease) Vitamin D deficiency Osteoporosis Surgical History Hx of foot surgery Hx of breast biopsy Hx of colonoscopy Hx of cholecystectomy Hx of tonsillectomy Hx of tubal ligation Hx of esophagogastroduodenoscopy Family History Father Alcoholism Mother Dementia Diabetes Heart disease Myocardial infarct Sister Breast cancer Brother Lung cancer Myocardial infarct Maternal Uncle Colon cancer Other Mental health disorder Substance use disorder Social History Housing: Apartment Alcohol intake: never Patient Tobacco Use Status: Never used Tobacco e-Cigarette/Vaping Use: Never Used Second Hand Smoke Exposure: No service: No Current occupational status: employed Cognitive needs: No Hearing needs: No Vision needs: Yes (Glasses) Review of Systems Const All systems reviewed & are unremarkable except as noted in HPI and below Eyes Reports no additional complaints ENT Reports no additional complaints Card Reports no additional complaints Physical Exam Vital Signs: BMI result Body Mass Index 32.0 Const General: healthy appearing and no acute distress HEENT Head: Yes normal to inspection, Yes normocephalic and Yes atraumatic Ears: hearing grossly normal bilaterally General nose exam: Normal external nose present Face and sinus: Yes normal facial exam Eyes General: appearance normal, both eyes and all related structures Eyelids: Yes eyelids normal Sclerae: sclerae normal Corneas: corneas normal Pupils: Equal, round and reactive pupils present Resp Effort & Inspection: normal respiratory effort Auscultation: clear to auscultation bilaterally Cardio Rate: regular rate Rhythm: regular rhythm Heart sounds: S1 normal heart sound present and S2 normal heart sound present GI Inspection: Yes normal to inspection Palpation (GI): Soft to palpation and Tenderness to palpation present (GI) in the epigastrum Percussion: Yes normal to percussion Auscultation: normal bowel sounds Neuro Cranial nerves: Yes Equal, round and reactive pupils present Assessment & Plan Assessment & Plan (1) Epigastric abdominal pain: Code(s): R10.13 - Epigastric pain Plan: The patient will get lab work today and continue to take her omeprazole daily she will be sure to follow up for her endoscopy and we will see her PCP in 2 weeks Plan See plan Orders: Orders Complete Blood Count Auto Diff Today R10.13 - Epigastric pain Comprehensive Met. Panel Today R10.13 - Epigastric pain Lipase Today R10.13 - Epigastric pain Amylase Today R10.13 - Epigastric pain Coding Level of Care Code Est Pt Level 3 (77860) Diagnoses Epigastric abdominal pain R10.13
[2023-11-28 08:18] VITALS: BP 108/66; PULSE 70; TEMP 36.6; O2SAT 98; BMI 32.0
== END 2023-11-28 09:51 | disposition home or self-care (01) ==
PROVIDERS: PCP Internal Medicine; Visit Provider Physician Assistant Medical
DX: R10.13 Epigastric pain (principal)
CPT/HCPCS: 99213

== ENCOUNTER 2023-11-28 08:37 | Outpatient (REF) | payer OTHER, SELFPAY ==
[2023-11-28 10:38] LABS: MANUAL DIFF FLAG NO
[2023-11-28 10:46] LABS: Basophils Absolute Auto 0.1 X10*3/uL (0.0-0.2); Basophils Percent Auto 1.6 % (0-2); Eosinophils Absolute Auto 0.1 X10*3/uL (0.0-0.4); Eosinophils Percent Auto 2.6 % (0-4); Hematocrit 37.5 % (37.0-47.0); Hemoglobin 12.1 g/dl (12.0-16.0); Imm Gran Abs Auto 0.01 X10*3/uL (0.00-0.03); Imm Gran Pct Auto 0.2 % (0.0-0.4); Lymphocytes Absolute Auto 1.4 X10*3/uL (1.2-4.9); Lymphocytes Percent Auto 28.6 % (20-40); Mean Corpuscular HGB Conc 32.3 g/dl (31.0-35.0); Mean Corpuscular Hemoglobin 28.4 pg (27.0-33.0); Mean Platelet Volume 9.9 fL (9.4-12.3); Monocytes Absolute Auto 0.4 X10*3/uL (0.1-1.2); Monocytes Percent Auto 7.6 % (2-11); Neutrophils Percent Auto 59.4 % (45-73); Platelet Count 317 X10*3/uL (160-400); Red Blood Count 4.26 X10*6/uL (4.20-5.50); Red Cell Distribution Width 13.8 % (11.0-16.0)
[2023-11-28 11:45] LABS: Alanine Aminotransferase 19 U/L (0-31); Albumin Level 4.1 g/dL (3.5-5.0); Alkaline Phosphatase 87 U/L (39-117); Amylase 53 U/L (28-100); Anion Gap 12 (12-20); Aspartate Amino Transferase 24 U/L (5-31); Bilirubin Total 0.4 mg/dL (0.0-1.0); Blood Urea Nitrogen 13 mg/dL (9-16); Calcium 9.2 mg/dL (8.4-10.2); Carbon Dioxide 23 mmol/L (22-29); Chloride 109 mmol/L (96-108); Estimated Glomerular Filt Rate > 60; Glucose Random 75 mg/dL (60-115); Lipase 21 U/L (8-78); Potassium 4.2 mmol/L (3.3-5.1); Sodium 140 mmol/L (135-145); Total Protein 7.8 g/dL (6.5-8.0)
== END 2023-11-28 08:38 | disposition home or self-care (01) ==
LOC: HO.HMGCLDS 08:37
PROVIDERS: PCP Internal Medicine; Visit Provider Physician Assistant Medical
DX: R10.13 Epigastric pain (principal)
CPT/HCPCS: 36415; 80053; 82150; 83690; 85025

== ENCOUNTER 2023-12-12 07:57 | Outpatient (AMB) | payer OTHER, SELFPAY ==
[2023-12-12 08:29] VITALS: BP 124/78; PULSE 76; BMI 29.4
--- NOTE | 2023-12-12 08:29 | A.OFFPC_ITS ---
Vital Signs 12/12/23 08:29 Height 4 ft 7.5 in Weight 129 lb BMI 29.4 BP 124/78 Blood Pressure Location Lt brachial Position Sitting Pulse 76 Pulse Source Pulse Oximeter Oxygen Delivery Method Room Air Intake Visit Reasons: Diabetes mellitus Allergies apple [Apple] Allergy (Severe, Verified 12/12/23 08:30) SWELLING/HIVES nut - unspecified [nut] Allergy (Severe, Verified 12/12/23 08:30) SWELLING/HIVES orange Allergy (Severe, Verified 12/12/23 08:30) SWELLING/HIVES peanut [Peanut] Allergy (Severe, Verified 12/12/23 08:30) SWELLING/HIVES penicillin V Allergy (Severe, Verified 12/12/23 08:30) rash Pork/Porcine Containing Products [Pork/Porcine Product Derivatives] Allergy (Severe, Verified 12/12/23 08:30) SWELLING/HIVES strawberry [[place]] Allergy (Severe, Verified 12/12/23 08:30) SWELLING/HIVES raloxifene [Evista] Allergy (Intermediate, Verified 12/12/23 08:30) Unknown citalopram Allergy (Unknown, Verified 12/12/23 08:30) numbness legs,hands Penicillins Allergy (Unknown, Verified 12/12/23 08:30) RASH metformin Adverse Reaction (Intermediate, Unverified 12/12/23 08:47) Diarrhea metoclopramide Adverse Reaction (Unknown, Verified 12/12/23 08:30) AGITATION From Soy Allergy (Severe, Uncoded 12/12/23 08:30) SWELLING,HIVES Tobacco use date assessed: 12/12/23 Dental Screening Dental Screen Date: 12/12/23 Did you have a dental visit in the last 12 months?: Yes Did you have a dental problem in the last 6 months where you did not have access to dental care?: No Was dental information given to patient?: Patient has dentist HPI Diabetes mellitus HPI Details 63-year-old overweight female(noted weig ht loss) with diabetes mellitus hypercholesterolemia GERD generalized anxiety disorder osteoporosis hypothyr oidism history of having tubular adenoma coming in for follow-up. Last seen in August 2023. Patient's colonoscopy is due bone density is due . Review of the notes last week was in the [facility] for diarrhea patient was advised labs patient does have a schedule with the control systems drafting officer in December 2023 for colonoscopy and EGD. Last complete blood work was July 2023 Roya [id number]. interpret, gas, diarrhea/ started taking . metformin but this has been stopped and is better. Patient expresses depression does have Psychiatry and medications states son is not talking to her. Discussed with the patient that there is a situation like that that they are older already and they have their own mind. Advised patient to just be there to help keep her health good and the son will later on realize that family is family and shall be there only when he is ready. [facility] Medical History (Updated 12/12/23 @ 08:41 by Lamont Nino MD) Pre-op examination Foul smelling urine Snoring Allergic rhinitis Peripheral neuropathy Dysuria Goiter Obesity (BMI 30-39.9) Breast asymmetry Breast density RLQ abdominal pain Hypothyroidism Vitamin D deficiency Hypercholesterolemia Type 2 diabetes mellitus with hyperglycemia Hip osteoarthritis Anxiety and depression Gastroparesis GERD (gastroesophageal reflux disease) Vitamin D deficiency Osteoporosis Surgical History Hx of foot surgery Hx of breast biopsy Hx of colonoscopy Hx of cholecystectomy Hx of tonsillectomy Hx of tubal ligation Hx of esophagogastroduodenoscopy Family History Father Alcoholism Mother Dementia Diabetes Heart disease Myocardial infarct Sister Breast cancer Brother Lung cancer Myocardial infarct Maternal Uncle Colon cancer Other Mental health disorder Substance use disorder Social History Housing: Apartment Alcohol intake: never Patient Tobacco Use Status: Never used Tobacco e-Cigarette/Vaping Use: Never Used Second Hand Smoke Exposure: No service: No Current occupational status: employed Cognitive needs: No Hearing needs: No Vision needs: Yes (Glasses) Questionnaire PHQ-9 Over the last 2 weeks, how often have you been bothered by any of the following problems? 1. Little interest or pleasure in doing things: more than half the days 2. Feeling down, depressed, or hopeless: more than half the days 3. Trouble falling or staying asleep, or sleeping too much: nearly every day 4. Feeling tired or having little energy: more than half the days 5. Poor appetite or overeating: more than half the days 6. Feeling bad about yourself - or that you are a failure or have let yourself or your family down: several days 7. Trouble concentrating on things, such as reading the newspaper or watching television: several days 8. Moving or speaking so slowly that other people could have noticed. Or the opposite - being so fidgety or restless that you have been moving around a lot more than usual: more than half the days 9. Thoughts that you would be better off or of hurting yourself in some way: nearly every day Total score: 18 Depression Screening Interpretation: Positive Depression Screening Done: Yes [id number] - PHQ-9 Billing: Yes Source: Developed by Drs. Tyler Lilly, Kandice Villalobos, Gerber Freeman and colleagues, with an educational clarissa from [employer]. Thrive Questionnaire Date Thrive assessed: 12/12/23 I am a: Patient What is your living situation today?: I do not have a steady places to live Within the past 12 months, did the food you bought not last and you didn't have the money to get more?: Never true Within the past 12 months, did you worry whether your food would run out before you got money to buy more?: Never true Do you have trouble paying for medicines?: No Do you have trouble getting transportation to medical appointments?: No Do you have trouble paying your heating and electricity bill?: No Do you have trouble taking care of your child, family member or friend?: No Do you have trouble with day-to-day activities such as bathing, preparing meals, shopping, managing finances, etc.?: No Are you currently unemployed and looking for a job?: No Are you interested in more education?: No Please select the resources that you would like help with: Housing/Group Home Currently or been in a relationship where the following occur: no concerns reported THRIVE Score: 1 AUDIT C Alcohol Use Questionnaire (AUDIT-C) 1. How often do you have a drink containing alcohol?: Never 3. How often do you have six or more drinks on one occasion?: Never Total Score: 0 Score Reviewed/Action Taken: No SEFERINO-7 AMB Questionnaire SEFERINO-7 Date SEFERINO - 7 assessed: 12/12/23 Feeling nervous, anxious, or on edge: 2 = More than half the days Not being able to stop or control worryin = More than half the days Worrying too much about different things: 2 = More than half the days Trouble relaxin = More than half the days Being so restless that it is hard to sit still: 2 = More than half the days Becoming easily annoyed or irritable: 2 = More than half the days Feeling afraid as if something awful might happen: 2 = More than half the days Total SEFERINO-7 score (0-4 normal; 5-9 mild; 10-14 moderate; 15-21 severe): 14 Source: Developed by Drs. Tyler Lilly, Kandice Villalobos, Gerber Freeman and colleagues, with an educational clarissa from [employer]. Physical exam (Primary Care) Vital Signs: Last Vital Signs Pulse 76 12/12/23 08:29 BP 124/78 12/12/23 08:29 Oxygen Delivery Method Room Air 12/12/23 08:29 BMI result Body Mass Index 29.4 Tobacco/Smoking Status: Tobacco use Status Tobacco use date assessed 12/12/23 12/12/23 08:30 Patient Tobacco Use Status Never used Tobacco 12/12/23 08:30 e-Cigarette/Vaping Use Never Used 12/12/23 08:30 PHQ-9: PHQ-9 Score PHQ-9: Total score 18 12/12/23 08:41 Depression Screening Interpretation: Positive Thrive Assessment: Date of Thrive Assessment Date Thrive assessed 12/12/23 12/12/23 08:40 Currently or been in a relationship where the following occur: no concerns reported Const General: alert; No acute distress Eyes Conjunctivae: conjunctivae normal Resp Auscultation: clear to auscultation bilaterally Cardio Rate: regular rate Rhythm: regular rhythm GI Inspection: Yes normal to inspection Extrem General: Yes normal to inspection and No edema Results AMB Hemoglobin A1c AMB Hemoglobin A1c 5.0 % Last Edit by Eileen Lawler CMA on 12/12/23 08 :42 AMB Urinalysis, Automated UA Leukoctes 500 Amber/uL Last Edit by Eileen Lawler CMA on 12/12/23 08: 49 UA Nitrite Negative Last Edit by Eileen Lawler CMA on 12/12/23 08:49 UA Urobilinogen 0.2 mg/dL Last Edit by Eileen Lawler CMA on 12/12/23 08:49 UA Protein 0 mg/dL Last Edit by Eileen Lawler CMA on 12/12/23 08:49 UA pH 6.0 Last Edit by Eileen Lawler, DOMINGA on 12/12/23 08:49 UA Blood 10 Christiano/uL Last Edit by Eileen Lawler, DOMINGA on 12/12/23 08:49 UA Specific [place] 1.010 Last Edit by Eileen Lawler, DOMINGA on 12/12/23 08:49 UA Ketone Negative Last Edit by Eileen Lawler, DOMINGA on 12/12/23 08:49 UA Bilirubin 0 mg/dL Last Edit by Eileen Lawler, DOMINGA on 12/12/23 08:49 UA Glucose 0 mg/dL Last Edit by Eileen Lawler CMA on 12/12/23 08:49 Results Reviewed Results Reviewed: Laboratory Last Values Hgb A1c (Clinic) 5.0 % (4.0-6.0) 12/12/23 08:30 Assessment and Plan Assessment & Plan (1) Type 2 diabetes mellitus with hyperglycemia: Comment: Dr. Will 10/2022 Code(s): E11.65 - Type 2 diabetes mellitus with hyperglycemia Qualifiers: Diabetes mellitus superintendent marine oil terminal insulin use: without superintendent marine oil [employer] use Qualified Code(s): E11.65 - Type 2 diabetes mellitus with hyperglycemia Plan: Decrease the amount of carbohydrate intake, pasta, bread, rice and potatoes are all sugar and that is aside from all the sweet stuff, remember that fruits are good but they are Sweet also. Globin A1c goal of less than 6.5. Patient on Tresiba metformin 500 mg twice a day Ozempic. Patient states that the metformin was just started and 2 weeks after started having diarrhea and abdominal pain. So did advised patient to stop metformin and we are list this as an allergy medication. Discussed that we will continue to stay on present dose of Tresiba and Ozempic. If the numbers go up then we will increase the Ozempic. (2) GERD (gastroesophageal reflux disease): Comment: Hiatal hernia, gastritis gastroparesis Code(s): K21.9 - Gastro-esophageal reflux disease without esophagitis Qualifiers: Esophagitis presence: without esophagitis Qualified Code(s): K21.9 - Gastro-esophageal reflux disease without esophagitis Plan: Avoid the foods that causes that usually spicy foods, tomato products, juices, coffee, soda and foods that your sensitive to. After eating do not lie down, allow 3-4 hours before in lie down. And keep the head of bed above 30 degrees to avoid the acid from going up. (3) Hypercholesterolemia: Code(s): E78.00 - Pure hypercholesterolemia, unspecified Plan: Avoid fried foods, chicken skin, eggs, butter margarine, pastries and meat. Be it pork or beef they have a lot of cholesterol LDL goal of less than 100 and triglyceride of less than 150 on simvastatin 10 mg once a day (4) Osteoporosis: Comment: November 2021 Code(s): M81.0 - Age-related osteoporosis without current pathological fracture Qualifiers: Osteoporosis type: age-related Presence of current pathological fracture: without current pathological fracture Qualified Code(s): M81.0 - Age- related osteoporosis without current pathological fracture Plan: Patient is due for bone density (5) SWAN (nonalcoholic steatohepatitis): Comment: 02/2020 NORMAL RENAL PANEL EXCEPT FOR AN elevated nonfasting glucose of 207, AST/ALT 27/36 with remainder normal, hemoglobin A1c is 6.2, vitamin B12 folate are normal, CBC shows borderline anemia normocytic, normochromic, intrinsic factor antibodies are negative, parietal cell L it antibodies are not elevated, IgG panel is completely normal, mitochondrial antibodies are negative, smooth muscle antibodies are negative, CURRENT Laboratory Tests Alpha fetoprotein not obtained a 10/07/2303/21/23 [id number] Plt Count 341 Estimated GFR 46 Total Bilirubin 0.5 AST 27 ALT 26 Alkaline Phosphatase 156 H ULTRASOUND OF THE ABDOMEN 09/02/22 IMPRESSION: There is subtly increased hepatic echogenicity. Mild hepatic steatosis could give this appearance. Code(s): K75.81 - Nonalcoholic steatohepatitis (SWAN) Plan: Low-fat diet and exercise (6) Generalized anxiety disorder: Comment: [facility] every other week [facility]. [facility] Code(s): F41.1 - Generalized anxiety disorder Plan: Continue with present medication and counseling (7) Hypothyroidism: Code(s): E03.9 - Hypothyroidism, unspecified Plan: Continue with thyroid medication July 2023 last blood (8) Tubular adenoma of colon: Comment: 2019=TA repeat 2023 aeb Code(s): D12.6 - Benign neoplasm of colon, unspecified Plan: Colonoscopy due December 2023 (9) Epigastric abdominal pain: Code(s): R10.13 - Epigastric pain Plan: Patient states metformin was started then this has happened and so will stop metformin. Orders: Orders AMB Hemoglobin A1c Today Z13.9 - Encounter for screening, unspecified AMB Urinalysis Automated Today R82.90 - Unspecified abnormal findings in urine XR DEXA axial skeleton Today M81.0 - Age-related osteoporosis without current pathological fracture Medications: Discontinued metformin Discontinued Reason: Change Referral Type 500 mg PO BIDWMEAL 60 tabs 2RF E11.65 - Type 2 diabetes mellitus with hyperglycemia Coding Level of Care Code Est Pt Level 4 (24723) Diagnoses Type 2 diabetes mellitus with hyperglycemia, without long-term current use of insulin E11.65 Diabetes mellitus penitentiary insulin use: without penitentiary use Gastroesophageal reflux disease without esophagitis K21.9 Esophagitis presence: without esophagitis Hypercholesterolemia E78.00 Age-related osteoporosis without current pathological fracture M81.0 Osteoporosis type: age-related Presence of current pathological fracture: without current pathological fracture SWAN (nonalcoholic steatohepatitis) K75.81 Generalized anxiety disorder F41.1 Hypothyroidism E03.9 Tubular adenoma of colon D12.6 Epigastric abdominal pain R10.13
== END 2023-12-12 09:00 | disposition home or self-care (01) ==
PROVIDERS: PCP Internal Medicine; Visit Provider Internal Medicine
DX: E11.65 Type 2 diabetes mellitus with hyperglycemia (principal); K21.9 Gastro-esophageal reflux disease without esophagitis; R82.90 Unspecified abnormal findings in urine; E78.00 Pure hypercholesterolemia, unspecified; M81.0 Age-related osteoporosis without current pathological fracture; K75.81 Nonalcoholic steatohepatitis (NASH); F41.1 Generalized anxiety disorder; E03.9 Hypothyroidism, unspecified; D12.6 Benign neoplasm of colon, unspecified
CPT/HCPCS: 81003; 83036; 99214

== ENCOUNTER 2023-12-26 06:47 | Day surgery (SDC) | payer OTHER, SELFPAY ==
--- NOTE | 2023-12-24 15:16 | HO.ANESPROP2 ---
Documented by User: Erica Carr NP 12/24/23 15:16 HPI - Anesthesia Eval Consult details Narrative: 63yo F for Colonoscopy Anesthesia Pre-Procedure Meds Is the patient on any of the following meds?: GLP1/DPP4 PMFSH Active Problems Active Problems: All Active Problems Epigastric abdominal pain (Acute) Lateral epicondylitis of left elbow (Acute) Cystitis (Acute) COVID-19 virus infection (Acute) Tubular adenoma of colon (Acute) Depression (Acute) Adult general medical exam (Acute) Hypothyroidism (Acute) Peripheral vascular disease (Acute) Generalized anxiety disorder (Acute) Vitamin D deficiency (Acute) Pelvic pain in female (Acute) Encounter for annual routine gynecological examination (Acute) Bicipital tendinitis of right shoulder (Acute) Medicare annual wellness visit, initial (Acute) Renal insufficiency (Acute) Abdominal bloating (Acute) Chronic idiopathic constipation (Acute) SWAN (nonalcoholic steatohepatitis) (Acute) Allergy desensitization therapy (Acute) Hypercholesterolemia (Acute) Type 2 diabetes mellitus with hyperglycemia (Acute) GERD (gastroesophageal reflux disease) (Acute) Osteoporosis (Acute) Past Medical History Medical History (Updated 12/12/23 @ 08:41 by Lamont Nino MD) Pre-op examination Foul smelling urine Snoring Allergic rhinitis Peripheral neuropathy Dysuria Goiter Obesity (BMI 30-39.9) Breast asymmetry Breast density RLQ abdominal pain Hypothyroidism Vitamin D deficiency Hypercholesterolemia Type 2 diabetes mellitus with hyperglycemia Hip osteoarthritis Anxiety and depression Gastroparesis GERD (gastroesophageal reflux disease) Vitamin D deficiency Osteoporosis Family History Family History Father Alcoholism Mother Dementia Diabetes Heart disease Myocardial infarct Sister Breast cancer Brother Lung cancer Myocardial infarct Maternal Uncle Colon cancer Other Mental health disorder Substance use disorder Surgical History Surgical History Hx of foot surgery Hx of breast biopsy Hx of colonoscopy Hx of cholecystectomy Hx of tonsillectomy Hx of tubal ligation Hx of esophagogastroduodenoscopy Social History Social History Housing: Apartment Alcohol intake: never Patient Tobacco Use Status: Never used Tobacco e-Cigarette/Vaping Use: Never Used Second Hand Smoke Exposure: No Are you DNR?: No Advance Directives: No Advance Directives Information Provided: Yes Recently lost weight without trying: No Nutrition Risks: No Nutritional Risk service: No Current occupational status: employed Cognitive needs: No Hearing needs: No Vision needs: Yes (Glasses) Meds Allergies Allergy/AdvReac Type Severity Reaction Status Date / Time apple [Apple] Allergy Severe SWELLING/HI Verified 12/12/23 08:30 VES nut - unspecified [nut] Allergy Severe SWELLING/HI Verified 12/12/23 08:30 VES orange Allergy Severe SWELLING/HI Verified 12/12/23 08:30 VES peanut [Peanut] Allergy Severe SWELLING/HI Verified 12/12/23 08:30 VES penicillin V Allergy Severe rash Verified 12/12/23 08:30 Pork/Porcine Containing Allergy Severe SWELLING/HI Verified 12/12/23 08:30 Products VES [Pork/Porcine Product Derivatives] strawberry [[place]] Allergy Severe SWELLING/HI Verified 12/12/23 08:30 VES raloxifene [[place]] Allergy Intermediate Unknown Verified 12/12/23 08:30 citalopram Allergy Unknown numbness Verified 12/12/23 08:30 legs,hands Penicillins Allergy Unknown RASH Verified 12/12/23 08:30 metformin AdvReac Intermediate Diarrhea Verified 12/26/23 07:58 metoclopramide AdvReac Unknown AGITATION Verified 12/12/23 08:30 From Soy Allergy Severe SWELLING,HI Uncoded 12/12/23 08:30 VES Home Medications ?Medication ?Instructions ?Recorded ?Confirmed ?Last Taken ?Type sertraline 50 mg tablet 50 mg PO DAILY 06/14/20 09/05/23 Unknown History lorazepam 1 mg tablet See Rx Instructions .Route .COMPLEX 07/17/20 09/05/23 Unknown History fluticasone propionate 50 1 spray intranasal DAILY 06/30/23 09/05/23 Unknown History mcg/actuation nasal spray,suspension Assessment and Plan Assessment Anesthesia Assessment: Chart Reviewed Documented by User: Fadia Ayala MD 12/26/23 08:27 [facility] Past Medical History Medical History (Updated 12/12/23 @ 08:41 by Lamont Nino MD) Pre-op examination Foul smelling urine Snoring Allergic rhinitis Peripheral neuropathy Dysuria Goiter Obesity (BMI 30-39.9) Breast asymmetry Breast density RLQ abdominal pain Hypothyroidism Vitamin D deficiency Hypercholesterolemia Type 2 diabetes mellitus with hyperglycemia Hip osteoarthritis Anxiety and depression Gastroparesis GERD (gastroesophageal reflux disease) Vitamin D deficiency Osteoporosis Family History Family History Father Alcoholism Mother Dementia Diabetes Heart disease Myocardial infarct Sister Breast cancer Brother Lung cancer Myocardial infarct Maternal Uncle Colon cancer Other Mental health disorder Substance use disorder Family history of problems with anesthesia: No Surgical History Surgical History Hx of foot surgery Hx of breast biopsy Hx of colonoscopy Hx of cholecystectomy Hx of tonsillectomy Hx of tubal ligation Hx of esophagogastroduodenoscopy History of Problems with Anesthesia: No Social History Social History Housing: Apartment Alcohol intake: never Patient Tobacco Use Status: Never used Tobacco e-Cigarette/Vaping Use: Never Used Second Hand Smoke Exposure: No Are you DNR?: No Advance Directives: No Advance Directives Information Provided: Yes Recently lost weight without trying: No Nutrition Risks: No Nutritional Risk service: No Current occupational status: employed Cognitive needs: No Hearing needs: No Vision needs: Yes (Glasses) Meds Allergies Allergy/AdvReac Type Severity Reaction Status Date / Time apple [Apple] Allergy Severe SWELLING/HI Verified 12/12/23 08:30 VES nut - unspecified [nut] Allergy Severe SWELLING/HI Verified 12/12/23 08:30 VES orange Allergy Severe SWELLING/HI Verified 12/12/23 08:30 VES peanut [Peanut] Allergy Severe SWELLING/HI Verified 12/12/23 08:30 VES penicillin V Allergy Severe rash Verified 12/12/23 08:30 Pork/Porcine Containing Allergy Severe SWELLING/HI Verified 12/12/23 08:30 Products VES [Pork/Porcine Product Derivatives] strawberry [[place]] Allergy Severe SWELLING/HI Verified 12/12/23 08:30 VES raloxifene [Evista] Allergy Intermediate Unknown Verified 12/12/23 08:30 citalopram Allergy Unknown numbness Verified 12/12/23 08:30 legs,hands Penicillins Allergy Unknown RASH Verified 12/12/23 08:30 metformin AdvReac Intermediate Diarrhea Verified 12/26/23 07:58 metoclopramide AdvReac Unknown AGITATION Verified 12/12/23 08:30 From Soy Allergy Severe SWELLING,HI Uncoded 12/12/23 08:30 VES Home Medications ?Medication ?Instructions ?Recorded ?Confirmed ?Last Taken ?Type sertraline 50 mg tablet 50 mg PO DAILY 06/14/20 09/05/23 Unknown History lorazepam 1 mg tablet See Rx Instructions .Route .COMPLEX 07/17/20 09/05/23 Unknown History fluticasone propionate 50 1 spray intranasal DAILY 06/30/23 09/05/23 Unknown History mcg/actuation nasal spray,suspension Exam Airway Mallampati Class: II TM Dist: >3cm Neck ROM: Full Heart: rrr Lungs: cta Assessment and Plan Assessment Anesthesia Assessment: Anesthesia Plan Discussed Final Anesthetic Review Family History of Problems with Anesthesia: No History of Problems with Anesthesia: No NPO: Yes ASA Class: III Final Preanesthetic Review: No Changes in Pt Med Stat, Meds/Allgs Chart Reviewed and Consent Obtained/Reviewed Patient Risk: Low Procedure Risk: Low Anesthetic Plan Anesthetic Plan: MAC: Disposition: Standard PACU
[2023-12-26 07:31] VITALS: BP 131/66; PULSE 72; RESP 20; TEMP 36; O2SAT 97; BMI 41.1
[2023-12-26 07:40] LABS: Glucose, Whole Blood 125 mg/dL (60-115)
--- NOTE | 2023-12-26 07:45 | MHC.SHP ---
Pre-Procedural Eval Section A - 24 Hr Update-Section A only Date of Service: 12/26/23 The patient is an INPATIENT: No The patient has been examined within 24 hours of the surgical procedure. The History & Physical has been completed within 30 days and I have reviewed it.: No Section B - Complete if H&P > 30 days Chief Complaint: Surveillance of colon polyps Relevant Family History (Specify if Yes): Yes Relevant Social History: None Present Medications: see Short Stay Collaborative assessment Medical History: Significant History (Hypothyroidism Vitamin D deficiency Obesity (BMI 30-39.9) Hypercholesterolemia Type 2 diabetes mellitus with hyperglycemia Hip osteoarthritis Anxiety and depression Gastroparesis GERD (gastroesophageal reflux disease) Vitamin D deficiency Osteoporosis) History of Previous Operations: Relevant previous surgery/procedure and date(s) (Hx of foot surgery Hx of breast biopsy Hx of colonoscopy Hx of cholecystectomy Hx of tonsillectomy Hx of tubal ligation Hx of esophagogastroduodenoscopy) Allergies: Allergies Allergy/AdvReac Type Severity Reaction Status Date / Time apple [Apple] Allergy Severe SWELLING/HI Verified 12/12/23 08:30 VES nut - unspecified [nut] Allergy Severe SWELLING/HI Verified 12/12/23 08:30 VES orange Allergy Severe SWELLING/HI Verified 12/12/23 08:30 VES peanut [Peanut] Allergy Severe SWELLING/HI Verified 12/12/23 08:30 VES penicillin V Allergy Severe rash Verified 12/12/23 08:30 Pork/Porcine Containing Allergy Severe SWELLING/HI Verified 12/12/23 08:30 Products VES [Pork/Porcine Product Derivatives] strawberry [[place]] Allergy Severe SWELLING/HI Verified 12/12/23 08:30 VES raloxifene [[place]ista] Allergy Intermediate Unknown Verified 12/12/23 08:30 citalopram Allergy Unknown numbness Verified 12/12/23 08:30 legs,hands Penicillins Allergy Unknown RASH Verified 12/12/23 08:30 metformin AdvReac Intermediate Diarrhea Unverified 12/12/23 08:47 metoclopramide AdvReac Unknown AGITATION Verified 12/12/23 08:30 From Soy Allergy Severe SWELLING,HI Uncoded 12/12/23 08:30 VES Review of Systems Sugical H&P ROS: Negative: Constitution, Cardiovascular, Respiratory and Gastrointestinal Exam Surgical H&P Exam: Normal: Heart, Normal: Lungs, Normal: Extremities and Normal: Abdomen Plan Diagnosis/Plan: Unchanged I have reviewed the history and physical and performed a pertinent physical examination on my patient. No changes have occurred unless specified. Time Spent With Patient Time: Total time managing care of this patient today ____ minutes.
[2023-12-26] MEDS: Lactated Ringers 1,000 ML 100 ML IVCONT (07:59)
--- NOTE | 2023-12-26 08:21 | W.PM.OPN ---
Operative Note Operative Note Date of Service: 12/26/23 Narrative: COLONOSCOPY TILL CECUM WITH SNARE POLYPECTOMY Pre-op diagnosis: Surveillance for colon polyps. Post-op diagnosis:? Colon polyp, Diverticulosis, Endoscopist:? Jonny Danielson MD Anesthesia:?MAC Consent: Indications for the procedure and potential complications of bleeding, perforation, reaction to medications and missed diagnosis were discussed with the patient and informed consent was obtained. Instrument: Olympus PCF H 190 L variable stiffness pediatric colonoscope Monitoring: Vital signs and clinical assessment, intermittent blood pressure monitoring, continuous EKG monitoring, Pulse oximetry and Carbon Dioxide monitoring were done throughout the procedure. Please see anesthesia flowsheet. Colon withdrawl time was 23 minutes. Procedure: The patient was placed in the left lateral decubitis position and pre-procedure medications were administered. After a digital rectal examination of the ano-rectum, the video colonoscope was inserted into the rectum and advanced through the colon to the cecum. The colonoscope was slowly withdrawn in a retrograde panoramic fashion and the colon mucosa was carefully examined including a retroflexed view of the rectum. Findings and interventions are described below. Procedure Difficulty: without difficulty Findings: Terminal Ileum: Not evaluated Cecum: Normal Ascending Colon: Normal Transverse Colon: Normal Descending Colon: Moderate diverticulosis Sigmoid Colon: A 6-7 mm sessile polyp - removed with a cold snare. Severe diverticulosis with luminal narrowing Rectum: Normal Ano-rectum: Normal Colon preparation: Good after copious irrigation. [place] Bowel Preparation Scale Right colon; 2 Transverse colon: 2 Left colon; 2 (0 = Unprepared colon segment with mucosa not seen due to solid stool that cannot be cleared. 1 = Portion of mucosa of the colon segment seen, but other areas of the colon segment not well seen due to staining, residual stool and/or opaque liquid. 2 = Minor amount of residual staining, small fragments of stool and/or opaque liquid, but mucosa of colon segment seen well. 3 = Entire mucosa of colon segment seen well with no residual staining, small fragments of stool or opaque liquid) Impression and Post Procedure Diagnosis: Colonoscopy Findings: One small polyp was removed Moderate to severe diverticulosis seen in the left colon Plan: I will send a letter with biopsy results Repeat Colonoscopy in 5 years if polyps are adenomatous and due to a history adenomatous colon polyps. Above findings were reviewed with the patient and relevant handouts were given and the discharge area.
[2023-12-26 09:16] VITALS: BP 89/67; PULSE 77; RESP 16; TEMP 36.2; O2SAT 96
[2023-12-26 09:31] VITALS: BP 125/72; PULSE 68; RESP 16; TEMP 36.2; O2SAT 99
== END 2023-12-26 10:32 | disposition home or self-care (01) ==
PROVIDERS: PCP Internal Medicine; Visit Provider Internal Medicine Gastroenterology
PROC: 0DJD8ZZ Inspection of Lower Intestinal Tract, Via Natural or Artificial Opening Endoscopic (ICD-10-PCS; CPT 45378; principal; 2023-12-26 08:30)
DX: Z12.11 Encounter for screening for malignant neoplasm of colon (principal); K63.5 Polyp of colon; K57.30 Diverticulosis of large intestine without perforation or abscess without bleeding; Z86.010 Personal history of colon polyps; K59.04 Chronic idiopathic constipation; K21.9 Gastro-esophageal reflux disease without esophagitis; E11.9 Type 2 diabetes mellitus without complications; Z79.899 Other long term (current) drug therapy; Z88.0 Allergy status to penicillin; Z88.8 Allergy status to other drugs, medicaments and biological substances
CPT/HCPCS: 45385; 82947; 88305; J2704

== ENCOUNTER → 2023-12-26 06:47 | Outpatient (BNV) | payer OTHER, SELFPAY | PROVIDERS: PCP Internal Medicine; Visit Provider Internal Medicine Gastroenterology | DX: Z12.11 Encounter for screening for malignant neoplasm of colon (principal); Z86.010 Personal history of colon polyps; K63.5 Polyp of colon; K57.90 Diverticulosis of intestine, part unspecified, without perforation or abscess without bleeding | CPT/HCPCS: 45385 ==

== ENCOUNTER 2024-01-02 10:21 | Outpatient (REF) | payer OTHER, SELFPAY ==
--- NOTE | ~2024-01-02 | MM_ITS ---
EXAMINATION: BONE DENSITOMETRY CLINICAL INDICATION: Age-related osteoporosis without current pathological fracture. COMPARISON: Previous BD dated 12/06/2021 and baseline BD dated 01/02/2012. TECHNIQUE: Using a [employer] DXA System (software version: 13.1) manufactured by [employer], dual-energy x-ray absorptiometry was performed of the lumbar spine and left hip. The images are of good technical quality. Summary results are attached. FINDINGS: LEFT FEMUR, NECK: Current: BMD 0.918 g/cm2, Z-score 0.5, T-score -0.9, normal. Prior: BMD 0.904 g/cm2. Baseline: BMD 0.904 g/cm2. LEFT FEMUR, TOTAL: Current: BMD 1.066 g/cm2, Z-score 1.6, T-score 0.5, normal, 4.0% increase from previous, 3.6% increase from baseline (<5% change is not significant). Prior: BMD 1.025 g/cm2. Baseline: BMD 1.029 g/cm2. AP SPINE L1-L4: Current: BMD 0.987 g/cm2, Z-score -0.1, T-score -1.6, osteopenia, 7.6% increase from previous, 11.1% increase from baseline (<5% change is not significant). Prior: BMD 0.917 g/cm2. Baseline: BMD 0.888 g/cm2. IDENTIFIED RISK FACTORS: Early menopause, osteoporosis, secondary osteoporosis. HISTORY OF FRACTURE: None listed. MEDICATIONS: Calcium, vitamin D, Prolia. MM/XR DEXA axial skeleton IMPRESSION: 1. DIAGNOSIS: Osteopenia based on the lowest T-score value of -1.6 in the lumbar spine applying World Health Organization criteria. 2. 10-YEAR FRACTURE RISK PREDICTION, FRAX: Not performed in this patient on estrogen or bone building treatments. 3. Treatment Recommendations: NOF guidelines recommend consideration for treatment in postmenopausal women and men age 50 and older presenting with the following: -A hip or vertebral (clinical or morphometric) fracture. -T-score less than or equal to -2.5 at the femoral neck or spine after appropriate evaluation to exclude secondary causes. -Low bone mass at the hip or spine and a 10-year fracture probability by FRAX of greater than or equal to 3% for hip fracture or greater than or equal to 20% for major osteoporotic fracture based on the [place] adapted WHO algorithm. 4. Other Recommendations: All treatment decisions require clinical judgment and consideration of individual patient factors, including patient preferences, comorbidities, previous drug use, risk factors not captured in the FRAX model (e.g. frailty, falls, vitamin D deficiency, increased bone turnover, interval significant decline in bone density) and possible under or overestimation of fracture risk by FRAX. Additional medical evaluation for secondary cause of low bone mineral density may be appropriate. FUTURE SCAN RECOMMENDATION: People with diagnosed cases of osteoporosis or at high risk for fracture should have regular bone mineral density tests. For patients eligible for Medicare, routine testing is allowed once every 2 years. The testing frequency can be increased to one year for patients who have rapidly progressing disease, those who are receiving or discontinuing medical therapy to restore bone mass, or have additional risk factors.
== END 2024-01-02 10:22 | disposition home or self-care (01) ==
LOC: HO.MAMMO 10:21
PROVIDERS: PCP Internal Medicine; Visit Provider Internal Medicine
DX: Z13.820 Encounter for screening for osteoporosis (principal); Z78.0 Asymptomatic menopausal state; M81.0 Age-related osteoporosis without current pathological fracture
CPT/HCPCS: 77080

== ENCOUNTER → 2024-01-09 09:57 | Outpatient (BNVA) | payer OTHER, SELFPAY | PROVIDERS: PCP Internal Medicine; Visit Provider Nurse Practitioner ==

== ENCOUNTER 2024-01-30 11:36 | Outpatient (AMB) | payer OTHER, SELFPAY ==
[2024-01-30 11:37] VITALS: BP 108/67; PULSE 72; BMI 31.4
--- NOTE | 2024-01-30 11:37 | A.OFFVIS_ITS ---
Vital Signs 01/30/24 11:37 Height 4 ft 5 in Weight 125 lb 10.616 oz BMI 31.4 BP 108/67 Blood Pressure Location Lt brachial Position Sitting Pulse 72 Intake Visit Reasons: S/P Colon, Dr. Danielson Intake Note: Gina returns to in office visit today s/p colonoscopy. CC: Patient reports doing well but would like to discuss further her colonoscopy path results. [employer] Supervisor Required: Yes Accompanied by: Self / Same As Patient Allergies apple [Apple] Allergy (Severe, Verified 01/30/24 11:38) SWELLING/HIVES nut - unspecified [nut] Allergy (Severe, Verified 01/30/24 11:38) SWELLING/HIVES orange Allergy (Severe, Verified 01/30/24 11:38) SWELLING/HIVES peanut [Peanut] Allergy (Severe, Verified 01/30/24 11:38) SWELLING/HIVES penicillin V Allergy (Severe, Verified 01/30/24 11:38) rash Pork/Porcine Containing Products [Pork/Porcine Product Derivatives] Allergy (Severe, Verified 01/30/24 11:38) SWELLING/HIVES strawberry [Wallace] Allergy (Severe, Verified 01/30/24 11:38) SWELLING/HIVES raloxifene [Evista] Allergy (Intermediate, Verified 01/30/24 11:38) Unknown citalopram Allergy (Unknown, Verified 01/30/24 11:38) numbness legs,hands Penicillins Allergy (Unknown, Verified 01/30/24 11:38) RASH metformin Adverse Reaction (Intermediate, Verified 01/30/24 11:38) Diarrhea metoclopramide Adverse Reaction (Unknown, Verified 01/30/24 11:38) AGITATION From Soy Allergy (Severe, Uncoded 12/12/23 08:30) SWELLING,HIVES HPI HPI S/P Colon, Dr. Danielson: Details: Assessment & Plan (1) Chronic idiopathic constipation: Code(s): K59.04 - Chronic idiopathic constipation Plan: She continues to do well on her Linzess 290 micro g, her pantoprazole 40 mg twice a day, her simethicone, and occasional dicyclomine cramping. She has bisacodyl at her disposal is well but has not had to use. She had a really good things giving her daughter and she is feeling quite well. She has no new health problems to report. I let her know that she is due for repeat colonoscopy next year and she is agreeable; but she does express that she does not like drinking the prep. Obi looks like it is covered under her insurance so will try to get a lower volume for her to make it easier. She is due again for blood work and an ultrasound for SWAN and this time will order 1 with elastography since she seems to have an increase in her echotexture on the last study. However looking at some of her random labs it appears that her transaminases have improved along with improving her diabetes control. Her hemoglobin A1c is dropped from 7.7% to 6.6% which is excellent. She denies any respiratory or cardiac problems. There are no prior problems with anesthesia or sedation. There are no infectious disease problems. She had a tubular adenoma in her 2019 colonoscopy. (2) SWAN (nonalcoholic steatohepatitis): Comment: 02/2020 NORMAL RENAL PANEL EXCEPT FOR AN elevated nonfasting glucose of 207, AST/ALT 27/36 with remainder normal, hemoglobin A1c is 6.2, vitamin B12 folate a re normal, CBC shows borderline anemia normocytic, normochromic, intrinsic factor antibodies are negative, parietal cell L it antibodies are not elevated, IgG panel is completely normal, mitochondrial antibodies are negative, smooth muscle antibodies are negative, CURRENT Laboratory Tests Alpha fetoprotein not obtained a 10/07/2303/21/23 [id number] Plt Count 341 Estimated GFR 46 Total Bilirubin 0.5 AST 27 ALT 26 Alkaline Phosphatase 156 H ULTRASOUND OF THE ABDOMEN 09/02/22 IMPRESSION: There is subtly increased hepatic echogenicity. Mild hepatic steatosis could give this appearance. Code(s): K75.81 - Nonalcoholic steatohepatitis (SWAN) (3) GERD (gastroesophageal reflux disease): Comment: Hiatal hernia, gastritis gastroparesis Code(s): K21.9 - Gastro-esophageal reflux disease without esophagitis Qualifiers: Esophagitis presence: without esophagitis Qualified Code(s): K21.9 - Gastro-esophageal reflux disease without esophagitis (4) Tubular adenoma of colon: Comment: 2019=TA repeat 2023 aeb Code(s): D12.6 - Benign neoplasm of colon, unspecified (5) Pre-op examination: Code(s): Z01.818 - Encounter for other preprocedural examination Orders: Orders Complete Blood Count Auto Diff Today D12.6 - Benign neoplasm of colon, unspecified, Z01.818 - Encounter for other preprocedural examination Comprehensive Met. Panel Today D12.6 - Benign neoplasm of colon, unspecified, Z01.818 - Encounter for other preprocedural examination US abdomen comp w elastography Today D12.6 - Benign neoplasm of colon, unspecified, Z01.818 - Encounter for other preprocedural examination Colonoscopy - GI Use Only Today D12.6 - Benign neoplasm of colon, unspecified, Z01.818 - Encounter for other preprocedural examination Medications: New sodium,potassium,mag sulfates 17.5-3.13-1.6 gram (Suprep Bowel Prep Kit) 480 mL orally; 354 mL 0RF Refilled linaclotide (Linzess) 290 mcg PO DAILY 30 caps 6RF K59.04 - Chronic idiopathic constipation dicyclomine 10 mg PO TID 270 caps 1RF pantoprazole 40 mg PO BID 180 tabs 3RF simethicone after meals 180 mg PO TIDWMEAL 30 days 90 caps 6RF R14.0 - Abdominal distension (gaseous) LABS: Laboratory Tests 11/28/23 08:46 WBC 5.0 RBC 4.26 Hgb 12.1 Hct 37.5 Plt Count 317 Estimated GFR > 60 Total Bilirubin 0.4 AST 24 ALT 19 Alkaline Phosphatase 87 Amylase 53 Lipase 21 ULTRASOUND OF THE ABDOMEN 09/02/22 FINDINGS: PANCREAS: Visualized proximal pancreas is normal. Distal pancreas obscured by bowel gas. LIVER: Subtly increased hepatic echogenicity. The liver is normal in size. The liver contour is normal. No focal hepatic lesion. There is no intrahepatic biliary duct dilatation seen. GALLBLADDER: Surgically absent. COMMON BILE DUCT: Normal in caliber measuring 0.7 cm in diameter. RIGHT KIDNEY: No hydronephrosis. No renal calculi or focal parenchymal lesions. The kidney measures 9.0 cm in maximum dimension. FREE FLUID: None. US/US abdomen limited IMPRESSION: There is subtly increased hepatic echogenicity. Mild hepatic steatosis could give this appearance. COLONOSCOPY 05/10/24 Findings: Terminal Ileum: Not evaluated Cecum: Normal Ascending Colon: Normal Transverse Colon: Normal Descending Colon: Moderate diverticulosis Sigmoid Colon: A 6-7 mm sessile polyp - removed with a cold snare. Severe diverticulosis with luminal narrowing Rectum: Normal Ano-rectum: Normal Impression and Post Procedure Diagnosis: Colonoscopy Findings: One small polyp was removed Moderate to severe diverticulosis seen in the left colon Plan: I will send a letter with biopsy results Repeat Colonoscopy in 5 years if polyps are adenomatous and due to a history adenomatous colon polyps. BIOPSY Received: 12/26/23 Diagnosis Colon, sigmoid, polyp, biopsy: Clinically polypoid colonic mucosa noted; negative for a hyperplastic or neoplastic process CORRESPONDENCE On 12/25/23 @ 14:31 Mckayla Reyna Wrote To Theresa patient is back on for Friday, per she miss understood question and is back on. On 12/25/23 @ 14:15 Mckayla Reyna Wrote To Theresa November - see below On 12/25/23 @ 14:14 Mckayla Reyna Wrote To [facility] from [facility] left message stating patient took her Ozempic so colonoscopy will need to be r/s. On 12/17/23 @ 11:22 Mckayla Reyna Wrote To Mckayla Reyna LVM regarding colonoscopy on Monday 12/25, reviewed needing transportation and prep - suprep. Diet and prep reviewed. Ozempic paulette need to be stopped 7 days before procedure. Mckayla Reyna completed item. TODAY'S VISIT Italian #Jose Alberto Imer She is agreeable to a 5 year recall. The procedure was well tolerated. The results were explained and the patient is agreeable to the follow-up interval as stated. The bowel pattern has returned to normal. Education was provided to tell any 1st degree relatives about their findings to be sure that they are screened by age 45. Educated that they will be put on a recall list when it is time for their repeat scope but should they move out of state or away from the hospital they will need to remember along with their primary to repeat the procedure in a timely fashion to avoid any adverse complications. She continues to do very well on her medications which include Linzess, senna, simethicone, pantoprazole twice a day and dicyclomine. She is going on vacation so she would like a 90 day refill and I will provide this. Return office visit in 6 months [facility] Medical History (Updated 01/30/24 @ 12:02 by PHIL Wang) COVID-19 virus infection Medicare annual wellness visit, initial Encounter for annual routine gynecological examination Adult general medical exam Pre-op examination Foul smelling urine Snoring Allergic rhinitis Peripheral neuropathy Dysuria Goiter Obesity (BMI 30-39.9) Breast asymmetry Breast density RLQ abdominal pain Hypothyroidism Vitamin D deficiency Hypercholesterolemia Type 2 diabetes mellitus with hyperglycemia Hip osteoarthritis Anxiety and depression Gastroparesis GERD (gastroesophageal reflux disease) Vitamin D deficiency Osteoporosis Surgical History Hx of foot surgery Hx of breast biopsy Hx of colonoscopy Hx of cholecystectomy Hx of tonsillectomy Hx of tubal ligation Hx of esophagogastroduodenoscopy Family History Father Alcoholism Mother Dementia Diabetes Heart disease Myocardial infarct Sister Breast cancer Brother Lung cancer Myocardial infarct Maternal Uncle Colon cancer Other Mental health disorder Substance use disorder Social History Housing: Apartment Alcohol intake: never Patient Tobacco Use Status: Never used Tobacco e-Cigarette/Vaping Use: Never Used Second Hand Smoke Exposure: No service: No Current occupational status: employed Cognitive needs: No Hearing needs: No Vision needs: Yes (Glasses) Review of Systems Const Denies fatigue, Denies fever(s), Denies night sweats, Denies poor appetite and Denies weight loss ENT Reports Normal hearing present, Denies dental pain, Denies dysphagia, Denies hearing loss, Denies mouth pain, Denies odynophagia, Denies throat swelling, Denies tongue swelling and Reports other (Dentition adequate) Card Reports no additional complaints Resp Reports no additional complaints GI Details: Denies abdominal pain, Denies melena, Reports bloating, Denies hematochezia, Reports constipation, Denies GI cramping, Denies dysphagia, Denies excessive flatus, Denies early satiety, Reports heartburn, Denies diarrhea, Denies nausea, Denies odynophagia, Denies vomiting and Denies hematemesis Skin/Breast Denies pruritus, Denies lesions, Denies rash and Denies jaundice Neuro Reports Normal hearing present and Denies Abnormal speech present Endo Denies fatigue Aller/Immun Denies throat swelling and Denies tongue swelling Physical Exam Vital Signs: Last Vital Signs Pulse 72 01/30/24 11:37 BP 108/67 01/30/24 11:37 BMI result Body Mass Index 31.4 Const General: cooperative, no acute distress, well developed and well groomed Nutritional Appearance: well nourished and obese Orientation/consciousness: oriented to person, oriented to place and oriented to time Limitations: language barrier HEENT Head: Yes normocephalic and Yes atraumatic Eyes General: appearance normal, both eyes and all related structures Pupils: Equal, round and reactive pupils present Neck Neck: Yes normal visual inspection and Yes no lymphadenopathy Thyroid: Thyroid normal Resp Effort & Inspection: normal respiratory effort and able to speak in complete sentences Auscultation: clear to auscultation bilaterally Cardio Rate: regular rate Rhythm: regular rhythm Heart sounds: Normal, physiologic split S2 sound present Peripheral pulses: radial pulses present and posterior tibial pulses present GI Inspection: No distended, No Abdominal panniculus present and Yes obesity Palpation (GI): Soft to palpation, nontender, no guarding, not rigid and No hepatosplenomegaly present Percussion: Yes normal to percussion Auscultation: normal bowel sounds Rectal Exam - Female: deferred Skin General skin exam: no rashes or lesions noted, turgor normal, skin not dry, no jaundice, No spider nevi and no striae Rashes: no rashes Nails: normal Neuro General: oriented to person, oriented to place and oriented to time Cranial nerves: Yes Equal, round and reactive pupils present and Yes Normal hearing present Speech: No Abnormal speech present Extrem General: Yes normal to inspection, No clubbing, No cyanosis and No edema Psych Appearance: grossly normal and well kempt Mental Status: mental status grossly normal Speech and movement: Normal speech and movement present Affect: normal affect Attitude: cooperative Thought process: Normal thought process present and not confabulating Thought content: Normal thought content present Insight: Limited insight present (Psych) Judgement: Limited judgement present (Psych) Results Reviewed Results Reviewed: Laboratory Tests 11/28/23 08:46 WBC 5.0 RBC 4.26 Hgb 12.1 Hct 37.5 Plt Count 317 Estimated GFR > 60 Total Bilirubin 0.4 AST 24 ALT 19 Alkaline Phosphatase 87 Amylase 53 Lipase 21 ULTRASOUND OF THE ABDOMEN 09/02/22 FINDINGS: PANCREAS: Visualized proximal pancreas is normal. Distal pancreas obscured by bowel gas. LIVER: Subtly increased hepatic echogenicity. The liver is normal in size. The liver contour is normal. No focal hepatic lesion. There is no intrahepatic biliary duct dilatation seen. GALLBLADDER: Surgically absent. COMMON BILE DUCT: Normal in caliber measuring 0.7 cm in diameter. RIGHT KIDNEY: No hydronephrosis. No renal calculi or focal parenchymal lesions. The kidney measures 9.0 cm in maximum dimension. FREE FLUID: None. US/US abdomen limited IMPRESSION: There is subtly increased hepatic echogenicity. Mild hepatic steatosis could give this appearance. COLONOSCOPY 12/26/23 Findings: Terminal Ileum: Not evaluated Cecum: Normal Ascending Colon: Normal Transverse Colon: Normal Descending Colon: Moderate diverticulosis Sigmoid Colon: A 6-7 mm sessile polyp - removed with a cold snare. Severe diverticulosis with luminal narrowing Rectum: Normal Ano-rectum: Normal Impression and Post Procedure Diagnosis: Colonoscopy Findings: One small polyp was removed Moderate to severe diverticulosis seen in the left colon Plan: I will send a letter with biopsy results Repeat Colonoscopy in 5 years if polyps are adenomatous and due to a history adenomatous colon polyps. BIOPSY Received: 12/26/23 Diagnosis Colon, sigmoid, polyp, biopsy: Clinically polypoid colonic mucosa noted; negative for a hyperplastic or neoplastic process Assessment & Plan Assessment & Plan (1) Tubular adenoma of colon: Comment: 2019=TA repeat 2023 aeb Code(s): D12.6 - Benign neoplasm of colon, unspecified Category: Medical (2) Chronic idiopathic constipation: Code(s): K59.04 - Chronic idiopathic constipation Category: Medical (3) SWAN (nonalcoholic steatohepatitis): Comment: 02/2020 NORMAL RENAL PANEL EXCEPT FOR AN elevated nonfasting glucose of 207, AST/ALT 27/36 with remainder normal, hemoglobin A1c is 6.2, vitamin B12 folate are normal, CBC shows borderline anemia normocytic, normochromic, intrinsic factor antibodies are negative, parietal cell L it antibodies are not elevated, IgG panel is completely normal, mitochondrial antibodies are negative, smooth muscle antibodies are negative, CURRENT Laboratory Tests 11/28/23 08:46 WBC 5.0 RBC 4.26 Hgb 12.1 Hct 37.5 Plt Count 317 Estimated GFR > 60 Total Bilirubin 0.4 AST 24 ALT 19 Alkaline Phosphatase 87 Amylase 53 Lipase 21 ULTRASOUND OF THE ABDOMEN 09/02/22 IMPRESSION: There is subtly increased hepatic echogenicity. Mild hepatic steatosis could give this appearance. Code(s): K75.81 - Nonalcoholic steatohepatitis (SWAN) Category: Medical (4) GERD (gastroesophageal reflux disease): Comment: Hiatal hernia, gastritis gastroparesis Code(s): K21.9 - Gastro-esophageal reflux disease without esophagitis Category: Medical Qualifiers: Esophagitis presence: without esophagitis Qualified Code(s): K21.9 - Gastro-esophageal reflux disease without esophagitis Plan Italian #Jose Alberto Live She is agreeable to a 5 year recall. The procedure was well tolerated. The results were explained and the patient is agreeable to the follow-up interval as stated. The bowel pattern has returned to normal. Education was provided to tell any 1st degree relatives about their findings to be sure that they are screened by age 45. Educated that they will be put on a recall list when it is time for their repeat scope but should they move out of state or away from the hospital they will need to remember along with their primary to repeat the procedure in a timely fashion to avoid any adverse complications. She continues to do very well on her medications which include Linzess, senna, simethicone, pantoprazole twice a day and dicyclomine. She is going on vacation so she would like a 90 day refill and I will provide this. Return office visit in 6 months Medications: Changed From linaclotide 290 mcg PO DAILY 30 caps 6RF K59.04 - Chronic idiopathic constipation To linaclotide (Linzess) 290 mcg PO DAILY 90 caps 0RF 90 days K59.04 - Chronic idiopathic constipation Refilled pantoprazole 40 mg PO BID 180 tabs 0RF simethicone after meals 180 mg PO TIDWMEAL 240 caps 0RF 30 days R14.0 - Abdominal distension (gaseous) dicyclomine 10 mg PO TID 270 caps 1RF Coding Level of Care Code Est Pt Level 4 (46980) Diagnoses Tubular adenoma of colon D12.6 Chronic idiopathic constipation K59.04 SWAN (nonalcoholic steatohepatitis) K75.81 Gastroesophageal reflux disease without esophagitis K21.9 Esophagitis presence: without esophagitis
== END 2024-01-30 11:57 | disposition home or self-care (01) ==
PROVIDERS: PCP Internal Medicine; Visit Provider Nurse Practitioner
DX: D12.6 Benign neoplasm of colon, unspecified (principal); K59.04 Chronic idiopathic constipation; K75.81 Nonalcoholic steatohepatitis (NASH); K21.9 Gastro-esophageal reflux disease without esophagitis
CPT/HCPCS: 99214

== ENCOUNTER → 2024-01-30 11:36 | Outpatient (BNVA) | payer OTHER, SELFPAY | PROVIDERS: PCP Internal Medicine; Visit Provider Nurse Practitioner | DX: K59.04 Chronic idiopathic constipation (principal); K75.81 Nonalcoholic steatohepatitis (NASH); K21.9 Gastro-esophageal reflux disease without esophagitis; Z86.010 Personal history of colon polyps; Z79.899 Other long term (current) drug therapy | CPT/HCPCS: 99212 ==

== ENCOUNTER 2024-03-12 10:03 | Outpatient (AMB) | payer OTHER, SELFPAY ==
--- NOTE | 2024-03-12 10:12 | A.OFFPC_ITS ---
Vital Signs 03/12/24 10:13 Height 4 ft 5 in Weight 120 lb 0.2 oz BMI 30.0 BP 102/68 Blood Pressure Location Lt brachial Position Sitting Pulse 61 Pulse Source Pulse Oximeter Pulse Oximetry (%) 98 Oxygen Delivery Method Room Air Intake Visit Reasons: Kerri 03/05 nausea, vomiting back pain Intake Note: Patient is here to follow-up after a visit the emergency department at [facility] on 03/05/2024 Heater Operator Helper Required: No Allergies apple [Apple] Allergy (Severe, Verified 03/12/24 10:16) SWELLING/HIVES nut - unspecified [nut] Allergy (Severe, Verified 03/12/24 10:16) SWELLING/HIVES orange Allergy (Severe, Verified 03/12/24 10:16) SWELLING/HIVES peanut [Peanut] Allergy (Severe, Verified 03/12/24 10:16) SWELLING/HIVES penicillin V Allergy (Severe, Verified 03/12/24 10:16) rash Pork/Porcine Containing Products [Pork/Porcine Product Derivatives] Allergy (Severe, Verified 03/12/24 10:16) SWELLING/HIVES strawberry [Bend] Allergy (Severe, Verified 03/12/24 10:16) SWELLING/HIVES raloxifene [Evista] Allergy (Intermediate, Verified 03/12/24 10:16) Unknown citalopram Allergy (Unknown, Verified 03/12/24 10:16) numbness legs,hands Penicillins Allergy (Unknown, Verified 03/12/24 10:16) RASH metformin Adverse Reaction (Intermediate, Verified 03/12/24 10:16) Diarrhea metoclopramide Adverse Reaction (Unknown, Verified 03/12/24 10:16) AGITATION From Soy Allergy (Severe, Uncoded 03/12/24 10:16) SWELLING,HIVES Medication List - Last Reconciled 03/12/24 by Sabine Gao PA-C blood sugar diagnostic (FreeStyle Lite Strips) 1 strip miscellaneous TID blood-glucose meter (FreeStyle Lite Meter kit) As directed check the blood sugar 3 times a day calcium citrate 500 mg (2 x 250 mg calcium) PO BID 90 days cefpodoxime 100 mg PO BID cholecalciferol (vitamin D3) (Vitamin D3) 25 mcg PO DAILY cyanocobalamin (vitamin B-12) 1,000 mcg PO DAILY diclofenac sodium 1% (Voltaren Arthritis Pain) 2 grams topical QID dicyclomine 10 mg PO TID diphenhydramine HCl (Banophen) 25 mg PO TID PRN fluticasone propionate 50 mcg/actuation 1 spray intranasal DAILY insulin degludec (Tresiba FlexTouch U-100 insulin) 24 units (0.24 mL) subcut BID 30 days lancets (FreeStyle Lancets) As directed check the BS TID linaclotide (Linzess) 290 mcg PO DAILY 90 days loratadine 10 mg PO DAILY lorazepam 1/2 tab QD and 1 at bedtime; pantoprazole 40 mg PO BID pen needle, diabetic (1st Tier Unifine Pentips) As directed inject twice per day ramelteon 8 mg PO DAILY semaglutide (Ozempic) 0.25 mg (0.368 mL) subcut QWEEK sertraline 100 mg PO DAILY simethicone 180 mg PO TIDWMEAL 30 days simvastatin 10 mg PO BEDTIME Tobacco use date assessed: 12/12/23 Dental Screening Dental Screen Date: 12/12/23 HPI [facility] 03/05 nausea, vomiting back pain HPI Details 64-year-old female with past medical his tory osteoporosis, GERD, diabetes mellitus, hypercholesterolemia, SWAN, generalized anxiety disorder, and hypothyroidism last seen by Dr. Nino 12/12/2023 coming in for hospital follow up. In review of the notes, patient presented to [facility] ED 03/05/2024 for low back pain, headache, dizziness, and nausea and vomiting following a syncopal episode. Chest x-ray was negative for acute pulmonary disease, head CT was within normal limits, CT of abdomen and pelvis was within normal limits. EKG, labs, and urinalysis with within normal limits. Patient was given Tylenol, Zofran, and IV fluids and discharged. Patient was seen by Gastroenterology 01/2024 was considered to be stable on Linzess, senna, simethicone, pantoprazole and dicyclomine to follow up in 6 months and placed on 5 year recall for colonoscopy. DEXA completed 01/02/2024 found to have osteopenia. Patient states she is unsure why she had a syncopal episode while on the plane but she was without her anxiety medications which he usually takes 4 flights. She reports feeling dizzy and nauseous prior to passing out. Workup was reassuring at [facility] ED. she has not had any syncopal episodes in the past or any repeat episodes. She denies feeling lightheaded, dizzy, nauseous and no vomiting. She does still continue to have a cough and throat irritation without difficulty or painful swallowing. She denies any fevers, leg swelling or chest pain. She does also continue to have left-sided CVA tenderness without painful urination, blood in the urine, or urinary frequency. [facility] Medical History COVID-19 virus infection Medicare annual wellness visit, initial Encounter for annual routine gynecological examination Adult general medical exam Pre-op examination Foul smelling urine Snoring Allergic rhinitis Peripheral neuropathy Dysuria Goiter Obesity (BMI 30-39.9) Breast asymmetry Breast density RLQ abdominal pain Hypothyroidism Vitamin D deficiency Hypercholesterolemia Type 2 diabetes mellitus with hyperglycemia Hip osteoarthritis Anxiety and depression Gastroparesis GERD (gastroesophageal reflux disease) Vitamin D deficiency Osteoporosis Surgical History Hx of foot surgery Hx of breast biopsy Hx of colonoscopy Hx of cholecystectomy Hx of tonsillectomy Hx of tubal ligation Hx of esophagogastroduodenoscopy Family History Father Alcoholism Mother Dementia Diabetes Heart disease Myocardial infarct Sister Breast cancer Brother Lung cancer Myocardial infarct Maternal Uncle Colon cancer Other Mental health disorder Substance use disorder Social History Housing: Apartment Alcohol intake: never Patient Tobacco Use Status: Never used Tobacco e-Cigarette/Vaping Use: Never Used Second Hand Smoke Exposure: No service: No Current occupational status: employed Cognitive needs: No Hearing needs: No Vision needs: Yes (Glasses) Questionnaire Thrive Questionnaire Date Thrive assessed: 12/12/23 AUDIT C Alcohol Use Questionnaire (AUDIT-C) 1. How often do you have a drink containing alcohol?: Never 3. How often do you have six or more drinks on one occasion?: Never Total Score: 0 Score Reviewed/Action Taken: No SEFERINO-7 AMB Questionnaire SEFERINO-7 Date SEFERINO - 7 assessed: 12/12/23 Source: Developed by Drs. Tyler Lilly, Kandice Villalobos, Gerber Freeman and colleagues, with an educational clarissa from [employer]. Review of Systems Const Denies body aches, Denies chills, Denies fever(s), Denies headache(s) and Denies poor appetite Eyes Reports no additional complaints ENT Denies dysphagia, Denies dizziness, Denies headache(s) and Denies odynophagia Card Denies chest pain, Denies syncope, Denies edema, Denies irregular heart rhythm, Denies lightheadedness and Reports dyspnea Resp Reports cough and Reports dyspnea GI Denies abdominal pain, Denies constipation, Denies dysphagia, Denies diarrhea, Denies nausea, Denies odynophagia and Denies vomiting Reports no additional complaints Musc Reports no additional complaints and Denies abnormal gait Skin/Breast Reports system reviewed and no additional complaints, except as documented Neuro Denies abnormal gait, Denies dizziness, Denies syncope and Denies headache(s) Psych Reports no additional complaints Physical exam (Primary Care) Vital Signs: Last Vital Signs Pulse 61 03/12/24 10:13 BP 102/68 03/12/24 10:13 Pulse Ox 98 03/12/24 10:13 Oxygen Delivery Method Room Air 03/12/24 10:13 BMI result Body Mass Index 30.0 Tobacco/Smoking Status: Tobacco use Status Tobacco use date assessed 12/12/23 03/12/24 10:14 Patient Tobacco Use Status Never used Tobacco 03/12/24 10:14 e-Cigarette/Vaping Use Never Used 03/12/24 10:14 Thrive Assessment: Date of Thrive Assessment Date Thrive assessed 12/12/23 03/12/24 10:14 Const General: cooperative, healthy appearing, comfortable and no acute distress Orientation/consciousness: patient oriented x3 HENMT Head: Yes normocephalic Ears: hearing grossly normal bilaterally General nose exam: Normal external nose present Mouth: Normal oral and palatal mucosa present and oropharynx normal Eyes General: appearance normal, both eyes and all related structures Conjunctivae: conjunctivae normal Neck Neck: Yes full ROM and Yes no lymphadenopathy Resp Effort & Inspection: normal respiratory effort Auscultation: clear to auscultation bilaterally, no crackles, no rales, no rhonchi and no wheezes Cardio Rate: regular rate Rhythm: regular rhythm General: Yes CVA tenderness on the left Back/Spine/Pelvis Back: CVA tenderness Skin General skin exam: no rashes or lesions noted Neuro General: patient oriented x3 Gait exam (Neuro): Normal gait present Extrem General: Yes normal to inspection, Yes full ROM and No edema Psych Affect: normal affect Attitude: cooperative Insight: Good insight present (Psych) Judgement: Good judgement present (Psych) Assessment and Plan Assessment & Plan (1) Cough: Code(s): R05.9 - Cough, unspecified Plan: Patient continues to have intermittent dry cough going on over a week now. She has been using [id number]-azlxyan antitussives without relief. Denies any fevers, chest pain, nausea, diarrhea. Given prescription for benzonatate and repeat chest x-ray sent to evaluate for pneumonia. (2) Cystitis: Code(s): N30.90 - Cystitis, unspecified without hematuria Plan: Patient is still having left-sided CVA tenderness which began prior to her hospital visit. She was found to have UTI at [facility] and treated with cefpodoxime and is due to finish her last dose tomorrow morning. We will order for urinalysis to be completed on Friday looking for resolution of UTI. Plan This note was constructed using voice recognition software. While every effort has been made to ensure accuracy and dicer machine operator, still areas may have been included sometimes these areas may affect the content or meeting of the given symptoms. Total time spent caring for the patient today was 35 minutes. This includes time spent before the visit reviewing the chart, time spent during the visit, and time spent after the visit and documentation. Orders: Orders UA CC w/rflx Micro + Cult Today N30.90 - Cystitis, unspecified without hematuria XR chest 2V Today R05.9 - Cough, unspecified Medications: New benzonatate 100 mg PO BID PRN 20 caps 0RF cough Coding Level of Care Code Est Pt Level 4 (32927) Diagnoses Cough R05.9 Cystitis N30.90
[2024-03-12 10:13] VITALS: BP 102/68; PULSE 61; O2SAT 98
== END 2024-03-12 10:47 | disposition home or self-care (01) ==
PROVIDERS: PCP Internal Medicine
DX: R05.9 Cough, unspecified (principal); N30.90 Cystitis, unspecified without hematuria
CPT/HCPCS: 99214

== ENCOUNTER 2024-03-15 09:41 | Outpatient (REF) | payer OTHER, SELFPAY ==
--- NOTE | ~2024-03-15 | XR_ITS ---
EXAMINATION: XR CHEST 2 VIEWS CLINICAL INFORMATION: Cough. COMPARISON: Chest radiographs dated 10/05/2019. TECHNIQUE: Frontal and lateral views of the chest were obtained. FINDINGS: The heart, great vessels, pulmonary vasculature and mediastinum are normal. The lungs show no focal infiltrate, effusion or pneumothorax. There is mild elevation of the right hemidiaphragm. There is no acute osseous abnormality. There are right upper quadrant surgical clips. XR/XR chest 2V IMPRESSION: No active cardiopulmonary disease.
[2024-03-15 10:46] LABS: Appearance Urine Clear; Color Urine Yellow; Glucose Urine UA Negative (Negative); Leukocyte Esterase Urine Negative (Negative); Nitrite Urine Negative (Negative); Urine Blood Negative (Negative); Urine Ketones Negative (Negative); Urine Protein Negative (Neg-Trace)
== END 2024-03-15 09:42 | disposition home or self-care (01) ==
LOC: HO.XRAY 09:41
PROVIDERS: PCP Internal Medicine
DX: R05.9 Cough, unspecified (principal); N30.90 Cystitis, unspecified without hematuria
CPT/HCPCS: 71046; 81003

== ENCOUNTER 2024-04-30 09:25 | Outpatient (AMB) | payer OTHER, SELFPAY ==
--- NOTE | 2024-04-30 09:27 | A.OFFPC_ITS ---
Vital Signs 04/30/24 09:36 Height 4 ft 5 in Weight 55.338 kg BMI 30.5 BP 118/62 Blood Pressure Location Lt brachial Position Sitting Pulse 67 Pulse Source Pulse Oximeter Pulse Oximetry (%) 98 Oxygen Delivery Method Room Air Intake Visit Reasons: DM Intake Note: Foul smell of urine, lower back pain on the left side, looking for a smaller needle for her insulin, want to see different allergiest as her current one decided the injections she was getting is unnecessary. She is homeless and is living with her daughter in [place] and she has 3 dogs. She believes she is allergic to the dogs because at night she is very itchy, always coughing and sneezing and her throat feels itchy. Allergies apple [Apple] Allergy (Severe, Verified 04/30/24 09:37) SWELLING/HIVES nut - unspecified [nut] Allergy (Severe, Verified 04/30/24 09:37) SWELLING/HIVES orange Allergy (Severe, Verified 04/30/24 09:37) SWELLING/HIVES peanut [Peanut] Allergy (Severe, Verified 04/30/24 09:37) SWELLING/HIVES penicillin V Allergy (Severe, Verified 04/30/24 09:37) rash Pork/Porcine Containing Products [Pork/Porcine Product Derivatives] Allergy (Severe, Verified 04/30/24 09:37) SWELLING/HIVES strawberry [Camino] Allergy (Severe, Verified 04/30/24 09:37) SWELLING/HIVES raloxifene [Evista] Allergy (Intermediate, Verified 04/30/24 09:37) Unknown citalopram Allergy (Unknown, Verified 04/30/24 09:37) numbness legs,hands Penicillins Allergy (Unknown, Verified 04/30/24 09:37) RASH metformin Adverse Reaction (Intermediate, Verified 04/30/24 09:37) Diarrhea metoclopramide Adverse Reaction (Unknown, Verified 04/30/24 09:37) AGITATION From Soy Allergy (Severe, Uncoded 04/30/24 09:37) SWELLING,HIVES Tobacco use date assessed: 12/12/23 Dental Screening Dental Screen Date: 12/12/23 HPI DM HPI Details 64-year-old obese female with diabetes m ellitus fatty liver hypercholesterolemia GERD constipation generalized anxiety disorder hypothyroidism last seen in February 2024 for cough and cystitis. Patient is here for follow-up. Colonoscopy is up-to-date december 2023 mammogram is up-to-date July bone density is up-to-date also. Review of the notes ER visit in [facility] due to hypoglycemia patient had a negative CT of the abdomen negative. Patient was treated for UTI with cefpodoxime. CT scan of the brain patient also has followed up with Gastroenterology Becka status post colonoscopy tubular adenoma advised to repeat in 5 years. 100-105 ([id number]) for the UTI- states L lower back occ dysuria, due to hypoglycemia - change med to decrease insulin Becka eye doctor [facility] Medical History (Updated 04/30/24 @ 10:10 by Lamont Nino MD) COVID-19 virus infection Medicare annual wellness visit, initial Encounter for annual routine gynecological examination Adult general medical exam Pre-op examination Foul smelling urine Snoring Allergic rhinitis Peripheral neuropathy Goiter Obesity (BMI 30-39.9) Breast asymmetry Breast density RLQ abdominal pain Hypothyroidism Vitamin D deficiency Hypercholesterolemia Type 2 diabetes mellitus with hyperglycemia Hip osteoarthritis Anxiety and depression Gastroparesis GERD (gastroesophageal reflux disease) Vitamin D deficiency Osteoporosis Surgical History Hx of foot surgery Hx of breast biopsy Hx of colonoscopy Hx of cholecystectomy Hx of tonsillectomy Hx of tubal ligation Hx of esophagogastroduodenoscopy Family History Father Alcoholism Mother Dementia Diabetes Heart disease Myocardial infarct Sister Breast cancer Brother Lung cancer Myocardial infarct Maternal Uncle Colon cancer Other Mental health disorder Substance use disorder Social History Housing: Apartment Alcohol intake: never Patient Tobacco Use Status: Never used Tobacco Tobacco use type: Cigarette e-Cigarette/Vaping Use: Never Used Second Hand Smoke Exposure: No service: No Current occupational status: employed Cognitive needs: No Hearing needs: No Vision needs: Yes (Glasses) Questionnaire PHQ-9 Over the last 2 weeks, how often have you been bothered by any of the following problems? 1. Little interest or pleasure in doing things: more than half the days 2. Feeling down, depressed, or hopeless: more than half the days 3. Trouble falling or staying asleep, or sleeping too much: nearly every day 4. Feeling tired or having little energy: more than half the days 5. Poor appetite or overeating: more than half the days 6. Feeling bad about yourself - or that you are a failure or have let yourself or your family down: several days 7. Trouble concentrating on things, such as reading the newspaper or watching television: several days 8. Moving or speaking so slowly that other people could have noticed. Or the opposite - being so fidgety or restless that you have been moving around a lot more than usual: more than half the days 9. Thoughts that you would be better off or of hurting yourself in some way: nearly every day Total score: 18 Depression Screening Interpretation: Positive Depression Screening Done: Yes 95133 - PHQ-9 Billing: Yes Source: Developed by Drs. Tyler Lilly, Kandice Villalobos, Gerber Freeman and colleagues, with an educational clarissa from [employer]. Thrive Questionnaire Date Thrive assessed: 04/30/24 I am a: Patient What is your living situation today?: I do not have a steady places to live Within the past 12 months, did the food you bought not last and you didn't have the money to get more?: Sometimes True Within the past 12 months, did you worry whether your food would run out before you got money to buy more?: Sometimes True Do you have trouble paying for medicines?: Yes Do you have trouble getting transportation to medical appointments?: Yes Do you have trouble paying your heating and electricity bill?: Yes Do you have trouble taking care of your child, family member or friend?: No Do you have trouble with day-to-day activities such as bathing, preparing meals, shopping, managing finances, etc.?: No Are you currently unemployed and looking for a job?: No Are you interested in more education?: No Please select the resources that you would like help with: Housing/Chcf Currently or been in a relationship where the following occur: No concerns reported THRIVE Score: 5 AUDIT C Alcohol Use Questionnaire (AUDIT-C) 1. How often do you have a drink containing alcohol?: Never 3. How often do you have six or more drinks on one occasion?: Never Total Score: 0 Score Reviewed/Action Taken: No SEFERINO-7 AMB Questionnaire SEFERINO-7 Date SEFERINO - 7 assessed: 12/12/23 Source: Developed by Drs. Tyler Lilly, Kandice Villalobos, Gerber Freeman and colleagues, with an educational clarissa from [employer]. Physical exam (Primary Care) Vital Signs: Last Vital Signs Pulse 67 04/30/24 09:36 BP 118/62 04/30/24 09:36 Pulse Ox 98 04/30/24 09:36 Oxygen Delivery Method Room Air 04/30/24 09:36 BMI result Body Mass Index 30.5 Tobacco/Smoking Status: Tobacco use Status Tobacco use date assessed 12/12/23 04/30/24 09:27 Patient Tobacco Use Status Never used Tobacco 04/30/24 09:27 Tobacco use type Cigarette 04/30/24 09:44 e-Cigarette/Vaping Use Never Used 04/30/24 09:27 PHQ-9: PHQ-9 Score PHQ-9: Total score 18 04/30/24 10:03 Depression Screening Interpretation: Positive Thrive Assessment: Date of Thrive Assessment Date Thrive assessed 04/30/24 04/30/24 09:48 Currently or been in a relationship where the following occur: No concerns reported Const General: alert; No acute distress Eyes Conjunctivae: conjunctivae normal Resp Auscultation: clear to auscultation bilaterally Cardio Rate: regular rate Rhythm: regular rhythm GI Inspection: Yes normal to inspection Extrem General: Yes normal to inspection and No edema Results AMB Hemoglobin A1c AMB Hemoglobin A1c 4.8 % Last Edit by Eileen Lawler CMA on 04/30/24 09 :54 AMB Urinalysis, Automated UA Leukoctes 70 Amber/uL Last Edit by Eileen Lawler CMA on 04/30/24 09:5 9 UA Nitrite Positive Last Edit by Eileen Lawler CMA on 04/30/24 09:59 UA Urobilinogen 2 mg/dL Last Edit by Eileen Lawler CMA on 04/30/24 09: 59 UA Protein 0 mg/dL Last Edit by Eileen Lawler CMA on 04/30/24 09:59 UA pH 6.0 Last Edit by Eileen Lawler CMA on 04/30/24 09:59 UA Blood 0 Christiano/uL Last Edit by Eielen Lawler CMA on 04/30/24 09:59 UA Specific [place] 1.015 Last Edit by Eileen Lawler CMA on 04/30/24 09:59 UA Ketone Positive Last Edit by Eileen Lawler CMA on 04/30/24 09:59 UA Bilirubin 0 mg/dL Last Edit by Eileen Lawler CMA on 04/30/24 09:59 UA Glucose 0 mg/dL Last Edit by Eileen Lawler CMA on 04/30/24 09:59 Immunizations tetanus-diphtheria toxoids-Td 2 Lf unit-2 Lf unit/0.5 mL IM suspension Performing Provider: Lamont Nino MD [facility] Administered by: Eileen Lawler CMA on 04/30/24 10:24 Dose Route Admin Location Dispensed Lot Number Expiration Date NDC [employer] 0.5 mL IM Left Deltoid 0.5 mL [id number] 09/27/24 [address]-5 [employer] VIS Given Date VIS Provided VIS Publication Date 04/30/24 Single Vaccine 21 Eligibility Eligibility Date Funding Source Not VFC Eligible 04/30/24 State funds Results Reviewed Results Reviewed: Laboratory Last Values Hgb A1c (Clinic) 4.8 % (4.0-6.0) 04/30/24 09:36 Urine pH (Auto) 6.0 04/30/24 09:58 Specific [place] (Auto) 1.015 04/30/24 09:58 Urine Protein (Auto) 0 mg/dL 04/30/24 09:58 Glucose (UA)(Auto) 0 mg/dL 04/30/24 09:58 Urine Ketones (Auto) Positive 04/30/24 09:58 Urine Blood (Auto) 0 Christiano/uL 04/30/24 09:58 Urine Nitrite (Auto) Positive 04/30/24 09:58 Urine Bilirubin (Auto) 0 mg/dL 04/30/24 09:58 Urine Urobilinogen (Auto) 2 mg/dL 04/30/24 09:58 Leukocyte Esterase (Auto) 70 Amber/uL 04/30/24 09:58 Assessment and Plan Assessment & Plan (1) Tubular adenoma of colon: Comment: 2018=December 2023 5 years Code(s): D12.6 - Benign neoplasm of colon, unspecified Plan: Colonoscopy done in December negative but because of the history of tubular adenoma 5 years (2) Type 2 diabetes mellitus with hyperglycemia: Comment: Dr. 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 Patient has this under control and presently on Tresiba Ozempic (3) GERD (gastroesophageal reflux disease): Comment: Hiatal hernia, gastritis gastroparesis Code(s): K21.9 - Gastro-esophageal reflux disease without esophagitis Qualifiers: Esophagitis presence: without esophagitis Qualified Code(s): K21.9 - Gastro-esophageal reflux disease without esophagitis Plan: Avoid the foods that causes that usually spicy foods, tomato products, juices, coffee, soda and foods that your sensitive to. After eating do not lie down, allow 3-4 hours before in lie down. And keep the head of bed above 30 degrees to avoid the acid from going up. (4) Hypercholesterolemia: Code(s): E78.00 - Pure hypercholesterolemia, unspecified Plan: Avoid fried foods, chicken skin, eggs, butter margarine, pastries and meat. Be it pork or beef they have a lot of cholesterol will need repeat blood work (5) SWAN (nonalcoholic steatohepatitis): Comment: 02/2020 NORMAL RENAL PANEL EXCEPT FOR AN elevated nonfasting glucose of 207, AST/ALT 27/36 with remainder normal, hemoglobin A1c is 6.2, vitamin B12 folate are normal, CBC shows borderline anemia normocytic, normochromic, intrinsic factor antibodies are negative, parietal cell L it antibodies are not elevated, IgG panel is completely normal, mitochondrial antibodies are negative, smooth muscle antibodies are negative, CURRENT Laboratory Tests 11/28/23 08:46 WBC 5.0 RBC 4.26 Hgb 12.1 Hct 37.5 Plt Count 317 Estimated GFR > 60 Total Bilirubin 0.4 AST 24 ALT 19 Alkaline Phosphatase 87 Amylase 53 Lipase 21 ULTRASOUND OF THE ABDOMEN 09/02/22 IMPRESSION: There is subtly increased hepatic echogenicity. Mild hepatic steatosis could give this appearance. Code(s): K75.81 - Nonalcoholic steatohepatitis (SWAN) Plan: Low-fat diet and exercise (6) Generalized anxiety disorder: Comment: [facility] every other week [facility] [place] Code(s): F41.1 - Generalized anxiety disorder Plan: Continue with present medication (7) Hypothyroidism: Code(s): E03.9 - Hypothyroidism, unspecified Plan: Continue with thyroid medication (8) Dysuria: Code(s): R30.0 - Dysuria (9) Cystitis: Code(s): N30.90 - Cystitis, unspecified without hematuria (10) Allergy desensitization therapy: Code(s): Z51.6 - Encounter for desensitization to allergens Orders: Orders AMB Hemoglobin A1c Today Z13.9 - Encounter for screening, unspecified Complete Blood Count Auto Diff 3 Months E11.65 - Type 2 diabetes mellitus with hyperglycemia Creatinine Urine 3 Months E11.65 - Type 2 diabetes mellitus with hyperglycemia Vitamin B12 and Folate 3 Months E11.65 - Type 2 diabetes mellitus with hyperglycemia Td State Immunization Today Z23 - Encounter for immunization AMB Urinalysis Automated Today R82.90 - Unspecified abnormal findings in urine Comprehensive Met. Panel 3 Months E11.65 - Type 2 diabetes mellitus with hyperglycemia Free T4 (Free Thyroxine) 3 Months E11.65 - Type 2 diabetes mellitus with hyperglycemia Microalbumin, Random (w Creat) 3 Months E11.65 - Type 2 diabetes mellitus with hyperglycemia Lipid Panel 3 Months E11.65 - Type 2 diabetes mellitus with hyperglycemia, E78.00 - Pure hypercholesterolemia, unspecified Thyroid Stimulating Hormone 3 Months E11.65 - Type 2 diabetes mellitus with hyperglycemia Hemoglobin A1c 3 Months E11.65 - Type 2 diabetes mellitus with hyperglycemia Vitamin D 25-OH Total 3 Months E11.65 - Type 2 diabetes mellitus with hyperglycemia Referrals Allergy & Immunology Referral Z51.6 - Encounter for desensitization to allergens Medications: New sulfamethoxazole-trimethoprim 800-160 mg (Bactrim DS) 1 tab PO BID 14 tabs 0RF R05.9 - Cough, unspecified pen needle, diabetic (Advocate Pen Needle) As directed 100 ea 3RF E11.65 - Type 2 diabetes mellitus with hyperglycemia tetanus-diphtheria toxoids-Td 0.5 mL IM ONCE 0.5 mL 0RF Z23 - Encounter for immunization Changed From insulin degludec (Tresiba FlexTouch U-100 insulin) 24 units (0.24 mL) subcut BID 30 days 14.4 mL 3RF E11.65 - Type 2 diabetes mellitus with hyperglycemia To insulin degludec (Tresiba FlexTouch U-100 insulin) 24 units (0.24 mL) subcut DAILY 7.2 mL 3RF 30 days E11.65 - Type 2 diabetes mellitus with hyperglycemia From semaglutide (Ozempic) for 4 weeks 0.25 mg (0.368 mL) subcut QWEEK 3 mL 1RF E11.65 - Type 2 diabetes mellitus with hyperglycemia To semaglutide (Ozempic) for 4 weeks 0.5 mg (0.736 mL) subcut QWEEK 3.68 mL 1RF 30 days E11.65 - Type 2 diabetes mellitus with hyperglycemia Refilled blood sugar diagnostic (FreeStyle Lite Strips) 1 strip miscellaneous TID 300 ea 3RF for diabetes mellitus E11.65 - Type 2 diabetes mellitus with hyperglycemia Discontinued pen needle, diabetic (1st Tier Unifine Pentips) Discontinued Reason: Doctor's Order As directed inject twice per day 200 ea 3RF E11.65 - Type 2 diabetes mellitus with hyperglycemia Coding Level of Care Code Est Pt Level 4 (93047) Complex EM visit Add On G2211 Diagnoses Tubular adenoma of colon D12.6 Type 2 diabetes mellitus with hyperglycemia, without long-term current use of insulin E11.65 Diabetes mellitus local intermodal 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
[2024-04-30 09:36] VITALS: BP 118/62; PULSE 67; O2SAT 98; BMI 30.5
== END 2024-04-30 10:33 | disposition home or self-care (01) ==
PROVIDERS: PCP Internal Medicine; Visit Provider Internal Medicine
DX: Z23 Encounter for immunization (principal); E11.65 Type 2 diabetes mellitus with hyperglycemia; Z86.010 Personal history of colon polyps; K21.9 Gastro-esophageal reflux disease without esophagitis; R30.0 Dysuria; E78.00 Pure hypercholesterolemia, unspecified; K75.81 Nonalcoholic steatohepatitis (NASH); F41.1 Generalized anxiety disorder; E03.9 Hypothyroidism, unspecified; N30.90 Cystitis, unspecified without hematuria
CPT/HCPCS: 81003; 83036; 90471; 90714; 99214

== ENCOUNTER 2024-06-30 14:16 | Outpatient (AMB) | payer OTHER, SELFPAY ==
--- NOTE | 2024-06-30 14:26 | A.OFFVIS_ITS ---
Vital Signs 06/30/24 14:27 Height 4 ft 5.72 in Weight 128 lb 4.944 oz BMI 31.3 BP 100/62 Blood Pressure Location Lt brachial Position Sitting Pulse 93 Pulse Source Pulse Oximeter Intake Visit Reasons: Osteoporosis-lvm Intake Note: Patient present today for Osteoporosis follow up. Genetic Scientist Required: Yes Genetic Scientist Language: Fire Sprinkler Apparatus Inspector Services: Genetic Scientist Present Genetic Scientist Name: Renetta CRUZ Information Interpreted: non-clinical & clinical Accompanied by: Self / Same As Patient Allergies apple [Apple] Allergy (Severe, Verified 06/30/24 14:28) SWELLING/HIVES nut - unspecified [nut] Allergy (Severe, Verified 06/30/24 14:28) SWELLING/HIVES orange Allergy (Severe, Verified 06/30/24 14:28) SWELLING/HIVES peanut [Peanut] Allergy (Severe, Verified 06/30/24 14:28) SWELLING/HIVES penicillin V Allergy (Severe, Verified 06/30/24 14:28) rash Pork/Porcine Containing Products [Pork/Porcine Product Derivatives] Allergy (Severe, Verified 06/30/24 14:28) SWELLING/HIVES strawberry [[place]] Allergy (Severe, Verified 06/30/24 14:28) SWELLING/HIVES raloxifene [Evista] Allergy (Intermediate, Verified 06/30/24 14:28) Unknown citalopram Allergy (Unknown, Verified 06/30/24 14:28) numbness legs,hands Penicillins Allergy (Unknown, Verified 06/30/24 14:28) RASH metformin Adverse Reaction (Intermediate, Verified 06/30/24 14:28) Diarrhea metoclopramide Adverse Reaction (Unknown, Verified 06/30/24 14:28) AGITATION From Soy Allergy (Severe, Uncoded 06/30/24 14:28) SWELLING,HIVES Medication List - Last Reconciled 06/30/24 by Tyler Baum MD blood sugar diagnostic (FreeStyle Lite Strips) 1 strip miscellaneous TID blood-glucose meter (FreeStyle Lite Meter kit) As directed check the blood sugar 3 times a day calcium citrate 500 mg (2 x 250 mg calcium) PO BID 90 days cholecalciferol (vitamin D3) (Vitamin D3) 25 mcg PO DAILY cyanocobalamin (vitamin B-12) 1,000 mcg PO DAILY diclofenac sodium 1% (Voltaren Arthritis Pain) 2 grams topical QID dicyclomine 10 mg PO TID diphenhydramine HCl (Banophen) 25 mg PO TID PRN fluticasone propionate 50 mcg/actuation 1 spray intranasal DAILY insulin degludec (Tresiba FlexTouch U-100 insulin) 24 units (0.24 mL) subcut DAILY 30 days lancets (FreeStyle Lancets) As directed check the BS TID linaclotide (Linzess) 290 mcg PO DAILY 90 days loratadine 10 mg PO DAILY lorazepam 1/2 tab QD and 1 at bedtime; pantoprazole 40 mg PO BID pen needle, diabetic (Advocate Pen Needle) As directed ramelteon 8 mg PO DAILY semaglutide (Ozempic) 0.5 mg (0.736 mL) subcut QWEEK 30 days sertraline 100 mg PO DAILY simethicone 180 mg PO TID simvastatin 10 mg PO BEDTIME sulfamethoxazole-trimethoprim 800-160 mg (Bactrim DS) 1 tab PO BID HPI Comments Details: 64 YO Female with PMHx Osteoporosis who is seen in F/U for the same. First diagnosed many years ago. Received treatment in the past with Evista for approximately 3 months, but developed a DVT so this was stopped. She then received IV Reclast for 2 doses, and switched to Prolia. It is unclear exactly when her doses of Prolia were, but she apparently received 5 doses thus far, beginning 2018, and her most recent 06/18/2021. She was then switched to PO Fosamax as of 12/2021 and remains on this weekly. She is tolerating this well. No history of pathologic fracture or ONJ. Has 1 servings of dietary calcium per day in the form of milk. Takes Calcium supplement 500 mg once daily. Takes 1000 IU of Vitamin D daily. Uses PPI daily. Had a prior DVT and did use a short course of anticoagulant, though she does not recall the name. Denies ever using an antiepileptic or glucocorticoid medication. Does weight bearing exercise 7 days per week in the form of walking. Fracture history: Denies Height loss: Reports losing height, but unable to quantify. 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 Menses were always regular. G3G3. She did not breastfeed. Menopause was age 56. She did not use HRT after. Denies history of Kidney stones: Denies family history of Osteoporosis or hip fracture. Was seeing the dentist regularly. Has not in over 6 months. No planned upcoming dental work or extractions. DXA dated 12/06/2021: FINDINGS: AP SPINE L1-L4: Current: BMD 0.917 g/cm2, Z-score -0.9, T-score -2.2, osteopenia, 4.8% decrease from previous, 3.3% increase from baseline (<5% change is not significant). Prior: BMD 0.963 g/cm2. Baseline: BMD 0.888 g/cm2. LEFT FEMUR, NECK: Current: BMD 0.904 g/cm2, Z-score 0.3, T-score -1.0, normal. Prior: BMD 0.868 g/cm2. Baseline: BMD 0.904 g/cm2. LEFT FEMUR, TOTAL: Current: BMD 1.025 g/cm2, Z-score 1.1, T-score 0.1, normal, 1.2% decrease from previous, 0.4% decrease from baseline (<5% change is not significant). Prior: BMD 1.037 g/cm2. Baseline: BMD 1.029 g/cm2. Thyroid US: 06/24/2022 Right Thyroid Lobe: 4.1 x 1.2 x 1.4 cm, volume 3.6 mL. Parenchyma: The gland echotexture is homogeneous. Thyroid vascularity is normal. Left Thyroid Lobe: 3.3 x 1.2 x 1.1 cm, volume 2.3 mL. Parenchyma: The gland echotexture is homogeneous. Thyroid vascularity is normal. Isthmus: 0.3 cm in maximum AP dimension. Estimated total number of nodules greater than or equal to 1 cm: 0. Drywall Stripper Helper nodules are described as follows: 1. Location: Right lower pole. ?? ? Size: 0.3 x 0.2 x 0.4 cm, volume 0.01 mL. ?? ? Nodule characteristics: ?? ? Composition: Solid/almost completely solid (2). ?? ? Echogenicity: Isoechoic (1). ?? ? Shape: Not taller than wide (0). ?? ? Margins: Ill-defined (0). ?? ? Echogenic Foci: None ?? ? ACR TI-RADS total points: 3 ?? ? ACR TI-RADS category: 3 2. Location: Left medial/lower pole. ?? ? Size: 0.8 x 0.4 x 0.4 cm, volume 0.1 mL. ?? ? Nodule characteristics: ?? ? Composition: Mixed cystic and solid (1). ?? ? Echogenicity: Isoechoic (1). ?? ? Shape: Not taller than wide (0). ?? ? Margins: Ill-defined (0). ?? ? Echogenic Foci: Comet-tail artifacts (0). ?? ? ACR TI-RADS total points: 2 ?? ? ACR TI-RADS category: 2 NODES: No lymphadenopathy is seen in the tissue surrounding the thyroid gland. Labs: Laboratory Tests 12/06/22 12/06/22 12/06/22 08:40 08:42 08:42 Creatinine 1.19 Estimated GFR 46 Albumin 4.2 N-Telopeptide X-linked 9 25-OH Vitamin D Total 54.8 TSH 2.98 PTH Intact 14 L Calcium (PTH Intact) 9.7 PFS Medical History (Updated 04/30/24 @ 10:10 by Lamont Nino MD) COVID-19 virus infection Medicare annual wellness visit, initial Encounter for annual routine gynecological examination Adult general medical exam Pre-op examination Foul smelling urine Snoring Allergic rhinitis Peripheral neuropathy Goiter Obesity (BMI 30-39.9) Breast asymmetry Breast density RLQ abdominal pain Hypothyroidism Vitamin D deficiency Hypercholesterolemia Type 2 diabetes mellitus with hyperglycemia Hip osteoarthritis Anxiety and depression Gastroparesis GERD (gastroesophageal reflux disease) Vitamin D deficiency Osteoporosis Surgical History Hx of foot surgery Hx of breast biopsy Hx of colonoscopy Hx of cholecystectomy Hx of tonsillectomy Hx of tubal ligation Hx of esophagogastroduodenoscopy Family History Father Alcoholism Mother Dementia Diabetes Heart disease Myocardial infarct Sister Breast cancer Brother Lung cancer Myocardial infarct Maternal Uncle Colon cancer Other Mental health disorder Substance use disorder Social History Housing: Apartment Alcohol intake: never Patient Tobacco Use Status: Never used Tobacco Tobacco use type: Cigarette e-Cigarette/Vaping Use: Never Used Second Hand Smoke Exposure: No service: No Current occupational status: employed Cognitive needs: No Hearing needs: No Vision needs: Yes (Glasses) Physical Exam Vital Signs: Last Vital Signs Pulse 93 06/30/24 14:27 BP 100/62 06/30/24 14:27 BMI result Body Mass Index 31.3 Assessment & Plan Assessment & Plan (1) Osteoporosis: Comment: November 2021 Code(s): M81.0 - Age-related osteoporosis without current pathological fracture Category: Medical Qualifiers: Osteoporosis type: age-related Presence of current pathological fracture: without current pathological fracture Qualified Code(s): M81.0 - Age-related osteoporosis without current pathological fracture Plan: This 63-year-old female with a history of osteoporosis initially treated Reclast then Prolia followed by oral bisphosphonate for over year. Recent DEXA shows the presence of low bone mass. Patient has not had a fracture. Currently on a drug holiday taking calcium and vitamin-D Plan is to check urine NTX if suppressed will continue drug holiday. If urine NTX rises would reinitiate the bisphosphonate. Should continue the calcium and vitamin-D supplementation Orders: Orders Collagen Crosslinks NTX Today M81.0 - Age-related osteoporosis without current pathological fracture Coding Level of Care Code Est Pt Level 3 (53432) Diagnoses Age-related osteoporosis without current pathological fracture M81.0 Osteoporosis type: age-related Presence of current pathological fracture: without current pathological fracture
[2024-06-30 14:27] VITALS: BP 100/62; PULSE 93; BMI 31.3
== END 2024-06-30 14:57 | disposition home or self-care (01) ==
PROVIDERS: PCP Internal Medicine; Visit Provider Internal Medicine Endocrinology, Diabetes & Metabolism
DX: M81.0 Age-related osteoporosis without current pathological fracture (principal)
CPT/HCPCS: 99213

== ENCOUNTER → 2024-06-30 14:16 | Outpatient (BNVA) | payer OTHER, SELFPAY | PROVIDERS: PCP Internal Medicine; Visit Provider Internal Medicine Endocrinology, Diabetes & Metabolism | DX: M81.0 Age-related osteoporosis without current pathological fracture (principal); Z79.83 Long term (current) use of bisphosphonates | CPT/HCPCS: 99212 ==

== ENCOUNTER 2024-07-23 12:08 | Outpatient (REF) | payer OTHER, SELFPAY ==
--- NOTE | ~2024-07-23 | MM_ITS ---
EXAMINATION: MM SCREENING DIGITAL BREAST TOMOSYNTHESIS, BILATERAL CLINICAL INFORMATION: Screening. Asymptomatic. COMPARISON: Mammography: Comparison is made with available priors TECHNIQUE: Digital breast mammography with tomosynthesis is performed in both the craniocaudal and mediolateral oblique views along with computer-aided detection (CAD). FINDINGS: The breasts are heterogeneously dense, which may obscure small masses (ACR BI-RADS breast composition Category c). Left marker clip. There are no significant masses, abnormal calcifications, or other abnormalities. MM/MM tomosynthesis screening BI IMPRESSION: No mammographic evidence of malignancy. ASSESSMENT: BI-RADS BI-RADS 2 - Benign Findings RECOMMENDATION: Routine annual mammography screening. 1 year F/U This examination should not preclude the clinical evaluation of a suspicious palpable abnormality. This patient's information was entered into a reminder system with a target due date for their next mammogram. Electronically signed by: Chandni Frank DO 07/29/2024 01:25 PM MIGDALIA
== END 2024-07-23 12:09 | disposition home or self-care (01) ==
LOC: HO.MAMMO 12:08
PROVIDERS: PCP Internal Medicine; Visit Provider Internal Medicine
DX: Z12.31 Encounter for screening mammogram for malignant neoplasm of breast (principal)
CPT/HCPCS: 77063; 77067

== ENCOUNTER → 2024-07-23 13:45 | Outpatient (BNV) | payer OTHER, SELFPAY | PROVIDERS: PCP Internal Medicine; Visit Provider Internal Medicine | DX: Z12.31 Encounter for screening mammogram for malignant neoplasm of breast (principal) | CPT/HCPCS: 77063; 77067 ==

== ENCOUNTER 2024-07-30 08:59 | Outpatient (AMB) | payer OTHER, SELFPAY ==
--- NOTE | 2024-07-30 09:06 | MHC.OFFVIS ---
Vital Signs 07/30/24 09:13 Height 4 ft 5 in Weight 124 lb 5.451 oz BMI 31.1 BP 144/76 H Blood Pressure Location Rt brachial Position Sitting Pulse 76 Pulse Source Pulse Oximeter Pulse Oximetry (%) 98 Oxygen Delivery Method Room Air Intake Visit Reasons: 6 month follow up CIC, Gerd Intake Note: ESTABLISHED PATIENT Gina presents in office today for a scheduled 6 mos FUV Meds and Allergies reviewed? Y No recent or relevant surgeries? None Any significant concerns or new changes? Pt reports frequent loose stools and GERD sx (burping and gas). Pharmacy verified? [facility] Senior Analysis Specialist Required: Yes Senior Analysis Specialist Services: Senior Analysis Specialist Present Senior Analysis Specialist Name: [id number] April Information Interpreted: non-clinical & clinical Allergies apple [Apple] Allergy (Severe, Verified 07/30/24 09:23) SWELLING/HIVES nut - unspecified [nut] Allergy (Severe, Verified 07/30/24 09:23) SWELLING/HIVES orange Allergy (Severe, Verified 07/30/24 09:23) SWELLING/HIVES peanut [Peanut] Allergy (Severe, Verified 07/30/24 09:23) SWELLING/HIVES penicillin V Allergy (Severe, Verified 07/30/24 09:23) rash Pork/Porcine Containing Products [Pork/Porcine Product Derivatives] Allergy (Severe, Verified 07/30/24 09:23) SWELLING/HIVES strawberry [[place]] Allergy (Severe, Verified 07/30/24 09:23) SWELLING/HIVES raloxifene [Evista] Allergy (Intermediate, Verified 07/30/24 09:23) Unknown citalopram Allergy (Unknown, Verified 07/30/24 09:23) numbness legs,hands Penicillins Allergy (Unknown, Verified 07/30/24 09:23) RASH metformin Adverse Reaction (Intermediate, Verified 07/30/24 09:23) Diarrhea metoclopramide Adverse Reaction (Unknown, Verified 07/30/24 09:23) AGITATION From Soy Allergy (Severe, Uncoded 06/30/24 14:28) SWELLING,HIVES HPI HPI 6 month follow up CIC, Gerd: Details: Assessment & Plan (1) Tubular adenoma of colon: Comment: 2019=TA repeat 2023 aeb Code(s): D12.6 - Benign neoplasm of colon, unspecified Category: Medical (2) Chronic idiopathic constipation: Code(s): K59.04 - Chronic idiopathic constipation Category: Medical (3) SWAN (nonalcoholic steatohepatitis): Comment: 02/2020 NORMAL RENAL PANEL EXCEPT FOR AN elevated nonfasting glucose of 207, AST/ALT 27/36 with remainder normal, hemoglobin A1c is 6.2, vitamin B12 folate are normal, CBC shows borderline anemia normocytic, normochromic, intrinsic factor antibodies are negative, parietal cell L it antibodies are not elevated, IgG panel is completely normal, mitochondrial antibodies are negative, smooth muscle antibodies are negative, CURRENT Laboratory Tests 11/28/23 08:46 WBC 5.0 RBC 4.26 Hgb 12.1 Hct 37.5 Plt Count 317 Estimated GFR > 60 Total Bilirubin 0.4 AST 24 ALT 19 Alkaline Phosphatase 87 Amylase 53 Lipase 21 ULTRASOUND OF THE ABDOMEN 09/02/22 IMPRESSION: There is subtly increased hepatic echogenicity. Mild hepatic steatosis could give this appearance. Code(s): K75.81 - Nonalcoholic steatohepatitis (SWAN) Category: Medical (4) GERD (gastroesophageal reflux disease): Comment: Hiatal hernia, gastritis gastroparesis Code(s): K21.9 - Gastro-esophageal reflux disease without esophagitis Category: Medical Qualifiers: Esophagitis presence: without esophagitis Qualified Code(s): K21.9 - Gastro-esophageal reflux disease without esophagitis Plan [place] #Joes Alberto Live She is agreeable to a 5 year recall. The procedure was well tolerated. The results were explained and the patient is agreeable to the follow-up interval as stated. The bowel pattern has returned to normal. Education was provided to tell any 1st degree relatives about their findings to be sure that they are screened by age 45. Educated that they will be put on a recall list when it is time for their repeat scope but should they move out of state or away from the hospital they will need to remember along with their primary to repeat the procedure in a timely fashion to avoid any adverse complications. She continues to do very well on her medications which include Linzess, senna, simethicone, pantoprazole twice a day and dicyclomine. She is going on vacation so she would like a 90 day refill and I will provide this. Return office visit in 6 months Medications: Changed From linaclotide 290 mcg PO DAILY 30 caps 6RF K59.04 - Chronic idiopathic constipation To linaclotide (Linzess) 290 mcg PO DAILY 90 caps 0RF 90 days K59.04 - Chronic idiopathic constipation Refilled pantoprazole 40 mg PO BID 180 tabs 0RF simethicone after meals 180 mg PO TIDWMEAL 240 caps 0RF 30 days R14.0 - Abdominal distension (gaseous) dicyclomine 10 mg PO TID 270 caps 1RF [place] #Alexandra Live She has been having trouble with a feeling of upset stomach and a lot of burping that smells like sulfur, then she will have sudden onset of diarrhea. This happened twice in June and once this month so far. She can not ID any foods that may be setting it off, and I ask her to try to think about this. The only new medication is Ozempic and this could be a c/f. I think she should try taking 2 -3 extra bentyl 10mg when this happens to see if seh can head off the bowel irritability that is likely causing this. She denies HB so her pantorpazole is working well, as well as her LInzess. ROV 6 weeks to eval. [facility] Medical History COVID-19 virus infection Medicare annual wellness visit, initial Encounter for annual routine gynecological examination Adult general medical exam Pre-op examination Foul smelling urine Snoring Allergic rhinitis Peripheral neuropathy Goiter Obesity (BMI 30-39.9) Breast asymmetry Breast density RLQ abdominal pain Hypothyroidism Vitamin D deficiency Hypercholesterolemia Type 2 diabetes mellitus with hyperglycemia Hip osteoarthritis Anxiety and depression Gastroparesis GERD (gastroesophageal reflux disease) Vitamin D deficiency Osteoporosis Surgical History Hx of foot surgery Hx of breast biopsy Hx of colonoscopy Hx of cholecystectomy Hx of tonsillectomy Hx of tubal ligation Hx of esophagogastroduodenoscopy Family History Father Alcoholism Mother Dementia Diabetes Heart disease Myocardial infarct Sister Breast cancer Brother Lung cancer Myocardial infarct Maternal Uncle Colon cancer Other Mental health disorder Substance use disorder Social History Housing: Apartment Alcohol intake: never Patient Tobacco Use Status: Never used Tobacco Tobacco use type: Cigarette e-Cigarette/Vaping Use: Never Used Second Hand Smoke Exposure: No service: No Current occupational status: employed Cognitive needs: No Hearing needs: No Vision needs: Yes (Glasses) Review of Systems Const Denies fatigue, Denies fever(s), Denies night sweats, Denies poor appetite and Denies weight loss Eyes Details: glasses Reports requires corrective lenses ENT Reports Normal hearing present, Denies dental pain, Denies dysphagia, Denies hearing loss, Denies mouth pain, Denies odynophagia, Denies throat swelling, Denies tongue swelling and Reports other (Dentition adequate) Card Reports no additional complaints Resp Reports no additional complaints GI Details: Denies abdominal pain, Reports belching, Denies melena, Denies bloating, Denies hematochezia, Denies constipation, Reports GI cramping, Denies dysphagia, Denies excessive flatus, Denies early satiety, Reports heartburn, Reports diarrhea, Denies nausea, Denies odynophagia, Denies vomiting and Denies hematemesis Skin/Breast Denies pruritus, Denies lesions, Denies rash and Denies jaundice Neuro Reports Normal hearing present and Denies Abnormal speech present Endo Denies fatigue Aller/Immun Denies throat swelling and Denies tongue swelling Physical Exam Vital Signs: Last Vital Signs Pulse 76 07/30/24 09:13 BP 144/76 H 07/30/24 09:13 Pulse Ox 98 07/30/24 09:13 Oxygen Delivery Method Room Air 07/30/24 09:13 BMI result Body Mass Index 31.1 Const General: cooperative, no acute distress, well developed and well groomed Nutritional Appearance: well nourished and obese Orientation/consciousness: oriented to person, oriented to place and oriented to time Limitations: language barrier HEENT Head: Yes normocephalic and Yes atraumatic Eyes General: appearance normal, both eyes and all related structures Pupils: Equal, round and reactive pupils present Neck Neck: Yes normal visual inspection and Yes no lymphadenopathy Thyroid: Thyroid normal Resp Effort & Inspection: normal respiratory effort and able to speak in complete sentences Auscultation: clear to auscultation bilaterally Cardio Rate: regular rate Rhythm: regular rhythm Heart sounds: Normal, physiologic split S2 sound present Peripheral pulses: radial pulses present and posterior tibial pulses present GI Inspection: No distended, No Abdominal panniculus present and Yes obesity Palpation (GI): Soft to palpation, nontender, no guarding, not rigid and No hepatosplenomegaly present Percussion: Yes normal to percussion Auscultation: normal bowel sounds Rectal Exam - Female: deferred Skin General skin exam: no rashes or lesions noted, turgor normal, skin not dry, no jaundice, No spider nevi and no striae Rashes: no rashes Nails: normal Neuro General: oriented to person, oriented to place and oriented to time Cranial nerves: Yes Equal, round and reactive pupils present and Yes Normal hearing present Speech: No Abnormal speech present Extrem General: Yes normal to inspection, No clubbing, No cyanosis and No edema Psych Appearance: grossly normal and well kempt Mental Status: mental status grossly normal Speech and movement: Normal speech and movement present Affect: normal affect Attitude: cooperative Thought process: Normal thought process present and not confabulating Thought content: Normal thought content present Insight: Limited insight present (Psych) Judgement: Limited judgement present (Psych) Assessment & Plan Assessment & Plan (1) Chronic idiopathic constipation: Code(s): K59.04 - Chronic idiopathic constipation Category: Medical (2) GERD (gastroesophageal reflux disease): Comment: Hiatal hernia, gastritis gastroparesis Code(s): K21.9 - Gastro-esophageal reflux disease without esophagitis Category: Medical Qualifiers: Esophagitis presence: without esophagitis Qualified Code(s): K21.9 - Gastro-esophageal reflux disease without esophagitis (3) SWAN (nonalcoholic steatohepatitis): Comment: 02/2020 NORMAL RENAL PANEL EXCEPT FOR AN elevated nonfasting glucose of 207, AST/ALT 27/36 with remainder normal, hemoglobin A1c is 6.2, vitamin B12 folate are normal, CBC shows borderline anemia normocytic, normochromic, intrinsic factor antibodies are negative, parietal cell L it antibodies are not elevated, IgG panel is completely normal, mitochondrial antibodies are negative, smooth muscle antibodies are negative, CURRENT Laboratory Tests 11/28/23 08:46 WBC 5.0 RBC 4.26 Hgb 12.1 Hct 37.5 Plt Count 317 Estimated GFR > 60 Total Bilirubin 0.4 AST 24 ALT 19 Alkaline Phosphatase 87 Amylase 53 Lipase 21 ULTRASOUND OF THE ABDOMEN 09/02/22 IMPRESSION: There is subtly increased hepatic echogenicity. Mild hepatic steatosis could give this appearance. Code(s): K75.81 - Nonalcoholic steatohepatitis (SWAN) Category: Medical Plan [place] #Alexandra Willams She has been having trouble with a feeling of upset stomach and a lot of burping that smells like sulfur, then she will have sudden onset of diarrhea. This happened twice in June and once this month so far. She can not ID any foods that may be setting it off, and I ask her to try to think about this. The only new medication is Ozempic and this could be a c/f. I think she should try taking 2 -3 extra bentyl 10mg when this happens to see if seh can head off the bowel irritability that is likely causing this. She denies HB so her pantorpazole is working well, as well as her LInzess. ROV 6 weeks to eval. Remind her the next visit to get labs and ultrasound Orders: Orders Comprehensive Met. Panel Today K75.81 - Nonalcoholic steatohepatitis (SWAN) US abdomen complete Today K75.81 - Nonalcoholic steatohepatitis (SWAN) Medications: Changed From dicyclomine 10 mg PO QID 360 caps 1RF To dicyclomine 20 mg (2 x 10 mg) PO QID 360 caps 1RF From dicyclomine 10 mg PO TID 270 caps 1RF To dicyclomine 10 mg PO QID 360 caps 1RF Refilled linaclotide (Linzess) 290 mcg PO DAILY 90 caps 0RF 90 days K59.04 - Chronic idiopathic constipation pantoprazole 40 mg PO BID 180 tabs 0RF simethicone 180 mg PO TID 270 caps 2RF R14.0 - Abdominal distension (gaseous) Discontinued sulfamethoxazole-trimethoprim 800-160 mg (Bactrim DS) Discontinued Reason: Patient Completed Course 1 tab PO BID 14 tabs 0RF R05.9 - Cough, unspecified Coding Level of Care Code Est Pt Level 3 (60217) Diagnoses Chronic idiopathic constipation K59.04 Gastroesophageal reflux disease without esophagitis K21.9 Esophagitis presence: without esophagitis SWAN (nonalcoholic steatohepatitis) K75.81
[2024-07-30 09:13] VITALS: BP 144/76; PULSE 76; O2SAT 98; BMI 31.1
== END 2024-07-30 10:11 | disposition home or self-care (01) ==
PROVIDERS: PCP Internal Medicine; Visit Provider Nurse Practitioner
DX: K59.04 Chronic idiopathic constipation (principal); K21.9 Gastro-esophageal reflux disease without esophagitis; K75.81 Nonalcoholic steatohepatitis (NASH)
CPT/HCPCS: 99213

== ENCOUNTER 2024-07-30 08:59 | Outpatient (REF) | payer OTHER, SELFPAY ==
[2024-07-30 10:41] LABS: MANUAL DIFF FLAG NO
[2024-07-30 10:51] LABS: Basophils Percent Auto 0.5 % (0-2); Eosinophils Absolute Auto 0.2 X10*3/uL (0.0-0.4); Hematocrit 36.1 % (37.0-47.0); Hemoglobin 12.3 g/dl (12.0-16.0); Imm Gran Abs Auto 0.01 X10*3/uL (0.00-0.03); Imm Gran Pct Auto 0.2 % (0.0-0.4); Lymphocytes Absolute Auto 1.8 X10*3/uL (1.2-4.9); Lymphocytes Percent Auto 31.8 % (20-40); Mean Corpuscular HGB Conc 34.1 g/dl (31.0-35.0); Mean Corpuscular Hemoglobin 29.6 pg (27.0-33.0); Mean Platelet Volume 9.3 fL (9.4-12.3); Monocytes Absolute Auto 0.4 X10*3/uL (0.1-1.2); Monocytes Percent Auto 6.6 % (2-11); Neutrophils Absolute Auto 3.2 x10*3/uL (2.0-8.3); Neutrophils Percent Auto 57.9 % (45-73); Platelet Count 268 X10*3/uL (160-400); Red Blood Count 4.15 X10*6/uL (4.20-5.50); Red Cell Distribution Width 13.3 % (11.0-16.0); White Blood Count 5.6 X10*3/uL (4.8-10.8)
[2024-07-30 11:02] LABS: Estimated Average Glucose 97 mg/dL; Hemoglobin A1C 98.7328 umol/L
[2024-07-30 11:21] LABS: Cholesterol 91 mg/dL (<200); HDL Cholesterol 33 mg/dL (>40); LDL Cholesterol Calculated 49 mg/dL (<100); Triglycerides 49 mg/dL (<150)
[2024-07-30 11:38] LABS: Free T4 (Free Thyroxine) 1.15 ng/dL (0.71-1.85); Thyroid Stimulating Hormone 2.68 uIU/mL (0.32-4.0); Vitamin D 25-OH Total 52.5 ng/mL (>30)
[2024-07-30 11:50] LABS: Folate 10.2 ng/mL (> or = 4.0); Vitamin B12 1614 pg/mL (200-900)
[2024-07-30 11:58] LABS: Creatinine Urine 59.45 mg/dL; Microalbum/Creatinine Ratio Ur 18.5 ug/mg cr (<30)
== END 2024-07-30 09:00 | disposition home or self-care (01) ==
LOC: HO.LAB 08:59
PROVIDERS: Absent Provider Internal Medicine; PCP Internal Medicine; Visit Provider Nurse Practitioner
DX: E11.65 Type 2 diabetes mellitus with hyperglycemia (principal); E78.00 Pure hypercholesterolemia, unspecified; K59.04 Chronic idiopathic constipation; K75.81 Nonalcoholic steatohepatitis (NASH); K21.9 Gastro-esophageal reflux disease without esophagitis
CPT/HCPCS: 36415; 80061; 82043; 82306; 82570; 82607; 82746; 83036; 84439; 84443; 85025; 99212

== ENCOUNTER 2024-08-10 09:35 | Outpatient (REF) | payer OTHER, SELFPAY ==
--- NOTE | ~2024-08-10 | US_ITS ---
EXAMINATION: US ABDOMEN COMPLETE CLINICAL INFORMATION: Nonalcoholic steatohepatitis, SWAN. COMPARISON: CT abdomen and pelvis of 10/07/2022. TECHNIQUE: Real-time imaging of the abdominal viscera. Limited visualization due to bowel gas. FINDINGS: PANCREAS: Limited visualization of pancreatic tail and head. Imaged portion of pancreatic body is unremarkable. ABDOMINAL AORTA: The proximal, mid, and distal segments are normal in caliber. INFERIOR VENA CAVA: Visualized portions are normal. LIVER: Diffusely heterogeneous hepatic echotexture is suggestive of hepatocellular disease and severely limits visualization. Correlation with liver function tests and clinical exam recommended to determine further management. GALLBLADDER: The gallbladder is surgically absent. COMMON BILE DUCT: Normal in caliber measuring 0.4 cm in diameter. RIGHT KIDNEY: Mild pelvocaliectasis. No obstructing renal calculi. Limited visualization. The kidney measures 9.0 cm in maximum dimension. LEFT KIDNEY: Mild pelvocaliectasis. No obstructing renal calculi. Limited visualization. The kidney measures 9.6 cm in maximum dimension. SPLEEN: The spleen measures 7.1 cm in maximum dimension. FREE FLUID: None. US/US abdomen complete IMPRESSION: 1. Diffusely heterogeneous hepatic echotexture is suggestive of hepatocellular disease and severely limits visualization. Correlation with liver function tests and clinical exam recommended to determine further management. 2. The gallbladder is surgically absent. 3. Mild bilateral pelvocaliectasis. No obstructing renal calculi. Electronically signed by: Sfoi Land MD 08/15/2024 10:10 AM [facility] [place]
== END 2024-08-10 09:36 | disposition home or self-care (01) ==
LOC: HO.US 09:35
PROVIDERS: PCP Internal Medicine; Visit Provider Nurse Practitioner
DX: K75.81 Nonalcoholic steatohepatitis (NASH) (principal)
CPT/HCPCS: 76700

== ENCOUNTER 2024-08-17 10:37 | Outpatient (AMB) | payer OTHER, SELFPAY ==
[2024-08-17 10:39] VITALS: BP 124/62; PULSE 84; O2SAT 97; BMI 31.2
--- NOTE | 2024-08-17 10:39 | A.OFFPC_ITS ---
Vital Signs 08/17/24 10:39 Height 4 ft 5 in Weight 124 lb 8 oz BMI 31.2 BP 124/62 Blood Pressure Location Lt brachial Position Sitting Pulse 84 Pulse Source Pulse Oximeter Pulse Oximetry (%) 97 Oxygen Delivery Method Room Air Intake Visit Reasons: DM Allergies apple [Apple] Allergy (Severe, Verified 08/17/24 10:43) SWELLING/HIVES nut - unspecified [nut] Allergy (Severe, Verified 08/17/24 10:43) SWELLING/HIVES orange Allergy (Severe, Verified 08/17/24 10:43) SWELLING/HIVES peanut [Peanut] Allergy (Severe, Verified 08/17/24 10:43) SWELLING/HIVES penicillin V Allergy (Severe, Verified 08/17/24 10:43) rash Pork/Porcine Containing Products [Pork/Porcine Product Derivatives] Allergy (Severe, Verified 08/17/24 10:43) SWELLING/HIVES strawberry [Carney] Allergy (Severe, Verified 08/17/24 10:43) SWELLING/HIVES raloxifene [Evista] Allergy (Intermediate, Verified 08/17/24 10:43) Unknown citalopram Allergy (Unknown, Verified 08/17/24 10:43) numbness legs,hands Penicillins Allergy (Unknown, Verified 08/17/24 10:43) RASH metformin Adverse Reaction (Intermediate, Verified 08/17/24 10:43) Diarrhea metoclopramide Adverse Reaction (Unknown, Verified 08/17/24 10:43) AGITATION From Soy Allergy (Severe, Uncoded 08/17/24 10:43) SWELLING,HIVES Tobacco use date assessed: 08/17/24 Dental Screening Dental Screen Date: 08/17/24 Did you have a dental visit in the last 12 months?: Yes Did you have a dental problem in the last 6 months where you did not have access to dental care?: No Was dental information given to patient?: Patient has dentist HPI DM HPI Details The patient is a 64-year-old female presenting with a routine follow-up for diabetes management. The patient has a history of Type 2 Diabetes Mellitus and is currently on Ozempic, a glucagon-like peptide-1 receptor agonist administered once weekly. The patient reports occasional nausea as a side effect of the medication but is currently tolerating the low dose without significant issues. Her most recent Hemoglobin A1c level was 5.0, indicating excellent glycemic control. The patient also has a history of hyperlipidemia, with recent test results showing an LDL cholesterol level of 49 mg/dL, which is below the target of less than 100 mg/dL. The patient has a history of hypertension, which is managed with medication, and there is no current report of elevated blood pressure readings. Additionally, the patient has been diagnosed with liver disease, though specific details of symptoms or past interventions were not discussed during the visit. An abdominal ultrasound was mentioned as planned for ongoing liver monitoring. Osteoporosis management includes consideration of Reclast, with a decision pending further blood test results. Recent kidney function test results in November indicated stable renal function. The patient has completed preventive care measures including receiving a flu vaccine, pneumonia vaccine, and shingles vaccine. There are no current concerns with bowel movements, with occasional diarrhea attributed to the weekly Ozempic injection. [facility] Medical History COVID-19 virus infection Medicare annual wellness visit, initial Encounter for annual routine gynecological examination Adult general medical exam Pre-op examination Foul smelling urine Snoring Allergic rhinitis Peripheral neuropathy Goiter Obesity (BMI 30-39.9) Breast asymmetry Breast density RLQ abdominal pain Hypothyroidism Vitamin D deficiency Hypercholesterolemia Type 2 diabetes mellitus with hyperglycemia Hip osteoarthritis Anxiety and depression Gastroparesis GERD (gastroesophageal reflux disease) Vitamin D deficiency Osteoporosis Surgical History Hx of foot surgery Hx of breast biopsy Hx of colonoscopy Hx of cholecystectomy Hx of tonsillectomy Hx of tubal ligation Hx of esophagogastroduodenoscopy Family History Father Alcoholism Mother Dementia Diabetes Heart disease Myocardial infarct Sister Breast cancer Brother Lung cancer Myocardial infarct Maternal Uncle Colon cancer Other Mental health disorder Substance use disorder Social History Housing: Apartment Alcohol intake: never Patient Tobacco Use Status: Never used Tobacco Tobacco use type: Cigarette e-Cigarette/Vaping Use: Never Used Second Hand Smoke Exposure: No service: No Current occupational status: employed Cognitive needs: No Hearing needs: No Vision needs: Yes (Glasses) Questionnaire PHQ-9 Over the last 2 weeks, how often have you been bothered by any of the following problems? 1. Little interest or pleasure in doing things: more than half the days 2. Feeling down, depressed, or hopeless: more than half the days 3. Trouble falling or staying asleep, or sleeping too much: nearly every day 4. Feeling tired or having little energy: more than half the days 5. Poor appetite or overeating: more than half the days 6. Feeling bad about yourself - or that you are a failure or have let yourself or your family down: several days 7. Trouble concentrating on things, such as reading the newspaper or watching television: several days 8. Moving or speaking so slowly that other people could have noticed. Or the opposite - being so fidgety or restless that you have been moving around a lot more than usual: more than half the days 9. Thoughts that you would be better off or of hurting yourself in some way: nearly every day Total score: 18 Depression Screening Interpretation: Positive Depression Screening Done: Yes 62646 - PHQ-9 Billing: Yes Source: Developed by Drs. Tyler Lilly, Kandice Villalobos, Gerber Freeman and colleagues, with an educational clarissa from [email or web address]. Thrive Questionnaire Date Thrive assessed: 04/30/24 AUDIT C Alcohol Use Questionnaire (AUDIT-C) 3. How often do you have six or more drinks on one occasion?: Never Total Score: 0 SEFERINO-7 AMB Questionnaire SEFERINO-7 Date SEFERINO - 7 assessed: 12/12/23 Source: Developed by Drs. Tyler Lilly, Kandice Villalobos, Gerber Freeman and colleagues, with an educational clarissa from [email or web address]. Physical exam (Primary Care) Vital Signs: Last Vital Signs Pulse 84 08/17/24 10:39 BP 124/62 08/17/24 10:39 Pulse Ox 97 08/17/24 10:39 Oxygen Delivery Method Room Air 08/17/24 10:39 BMI result Body Mass Index 31.2 Tobacco/Smoking Status: Tobacco use Status Tobacco use date assessed 08/17/24 08/17/24 10:44 Patient Tobacco Use Status Never used Tobacco 08/17/24 10:44 Tobacco use type Cigarette 08/17/24 10:44 e-Cigarette/Vaping Use Never Used 08/17/24 10:44 PHQ-9: PHQ-9 Score PHQ-9: Total score 18 08/17/24 10:44 Depression Screening Interpretation: Positive Thrive Assessment: Date of Thrive Assessment Date Thrive assessed 04/30/24 08/17/24 10:44 Const General: alert; No acute distress Eyes Conjunctivae: conjunctivae normal Resp Auscultation: clear to auscultation bilaterally Cardio Rate: regular rate Rhythm: regular rhythm GI Inspection: Yes normal to inspection Extrem General: Yes normal to inspection and No edema Coding Level of Care Code Est Pt Level 4 (61208) Complex EM visit Add On G2211 Diagnoses Type 2 diabetes mellitus with hyperglycemia, without long-term current use of insulin E11.65 Diabetes mellitus prison insulin use: without prison use Hypercholesterolemia E78.00 Gastroesophageal reflux disease without esophagitis K21.9 Esophagitis presence: without esophagitis SWAN (nonalcoholic steatohepatitis) K75.81 Age-related osteoporosis without current pathological fracture M81.0 Osteoporosis type: age-related Presence of current pathological fracture: without current pathological fracture Generalized anxiety disorder F41.1 Additional Codes PHQ-9 - 00613 - PHQ-9 Billing: Yes ([id number]) Assessment & Plan Assessment & Plan (1) Type 2 diabetes mellitus with hyperglycemia: Comment: Dr. Will 10/2022 Code(s): E11.65 - Type 2 diabetes mellitus with hyperglycemia Category: Medical Qualifiers: Diabetes mellitus intermodal customer service insulin use: without intermodal customer service use Qualified Code(s): E11.65 - Type 2 diabetes mellitus with hyperglycemia Plan: controlled (2) Hypercholesterolemia: Code(s): E78.00 - Pure hypercholesterolemia, unspecified Category: Medical Plan: 11/2023 last test (3) GERD (gastroesophageal reflux disease): Comment: Hiatal hernia, gastritis gastroparesis Code(s): K21.9 - Gastro-esophageal reflux disease without esophagitis Category: Medical Qualifiers: Esophagitis presence: without esophagitis Qualified Code(s): K21.9 - Gastro-esophageal reflux disease without esophagitis (4) SWAN (nonalcoholic steatohepatitis): Comment: 02/2020 NORMAL RENAL PANEL EXCEPT FOR AN elevated nonfasting glucose of 207, AST/ALT 27/36 with remainder normal, hemoglobin A1c is 6.2, vitamin B12 folate are normal, CBC shows borderline anemia normocytic, normochromic, intrinsic factor antibodies are negative, parietal cell L it antibodies are not elevated, IgG panel is completely normal, mitochondrial antibodies are negative, smooth muscle antibodies are negative, CURRENT Laboratory Tests 11/28/23 08:46 WBC 5.0 RBC 4.26 Hgb 12.1 Hct 37.5 Plt Count 317 Estimated GFR > 60 Total Bilirubin 0.4 AST 24 ALT 19 Alkaline Phosphatase 87 Amylase 53 Lipase 21 ULTRASOUND OF THE ABDOMEN 09/02/22 IMPRESSION: There is subtly increased hepatic echogenicity. Mild hepatic steatosis could give this appearance. Code(s): K75.81 - Nonalcoholic steatohepatitis (SWAN) Category: Medical Plan: low fat diet and exercise (5) Osteoporosis: Comment: November 2021 Code(s): M81.0 - Age-related osteoporosis without current pathological fracture Category: Medical Qualifiers: Osteoporosis type: age-related Presence of current pathological fracture: without current pathological fracture Qualified Code(s): M81.0 - Age- related osteoporosis without current pathological fracture Plan: seen ENDO and (6) Generalized anxiety disorder: Comment: [facility] every other week [facility] [place] Code(s): F41.1 - Generalized anxiety disorder Category: Medical Plan: continue with counselling and therapy Plan - Continue current management with Ozempic for Type 2 Diabetes Mellitus; monitor for side effects, particularly nausea and weight changes. - Maintain lipid-lowering therapy; lipid levels remain satisfactory with LDL at 49 mg/dL. - Hypertension to remain on the current regimen; no changes required due to stable readings. - Monitor liver disease with planned abdominal ultrasound; no specific changes in management at this time. - Pending evaluation to determine Reclast therapy based on forthcoming blood test results for Osteoporosis. - Execute complete blood work in three to four months to monitor renal function and other health indicators. - Continue routine vaccinations; the patient is up-to-date with flu, pneumonia, and shingles vaccines. - Discussed dietary modifications to reduce sugar intake and address potential imbalance relating to diabetic management. - Follow-up appointment scheduled for November; patient instructed to reach out sooner if there are new or worsening symptoms. Orders: Orders Comprehensive Met. Panel 3 Months . - Type 2 diabetes mellitus with hyperglycemia Free T4 (Free Thyroxine) 3 Months .65 - Type 2 diabetes mellitus with hyperglycemia Creatinine Urine 3 Months .65 - Type 2 diabetes mellitus with hyperglycemia Vitamin B12 and Folate 3 Months - Type 2 diabetes mellitus with hypergly cemia Vitamin D 25-OH Total 3 Months E11.65 - Type 2 diabetes mellitus with hyperglycemia Complete Blood Count Auto Diff 3 Months E11.65 - Type 2 diabetes mellitus with hyperglycemia Thyroid Stimulating Hormone 3 Months E11.65 - Type 2 diabetes mellitus with hyperglycemia Lipid Panel 3 Months E11.65 - Type 2 diabetes mellitus with hyperglycemia, E78.00 - Pure hypercholesterolemia, unspecified Microalbumin, Random (w Creat) 3 Months E11.65 - Type 2 diabetes mellitus with hyperglycemia Hemoglobin A1c 3 Months E11.65 - Type 2 diabetes mellitus with hyperglycemia
== END 2024-08-17 11:08 | disposition home or self-care (01) ==
PROVIDERS: PCP Internal Medicine; Visit Provider Internal Medicine
DX: E11.65 Type 2 diabetes mellitus with hyperglycemia (principal); E78.00 Pure hypercholesterolemia, unspecified; K21.9 Gastro-esophageal reflux disease without esophagitis; K75.81 Nonalcoholic steatohepatitis (NASH); M81.0 Age-related osteoporosis without current pathological fracture; F41.1 Generalized anxiety disorder

== ENCOUNTER → 2024-08-17 10:37 | Outpatient (BNVA) | payer OTHER, SELFPAY | PROVIDERS: PCP Internal Medicine; Visit Provider Internal Medicine | DX: E11.65 Type 2 diabetes mellitus with hyperglycemia (principal); E78.00 Pure hypercholesterolemia, unspecified; K21.9 Gastro-esophageal reflux disease without esophagitis; K75.81 Nonalcoholic steatohepatitis (NASH); M81.0 Age-related osteoporosis without current pathological fracture; F41.1 Generalized anxiety disorder | CPT/HCPCS: 96127; 99212 ==

== ENCOUNTER 2024-11-22 08:40 | Outpatient (REF) | payer OTHER, SELFPAY ==
[2024-11-22 09:05] LABS: MANUAL DIFF FLAG NO
--- OUTSIDE RECORDS SUMMARY | 2024-11-22 09:18 | XMS_ITS | Clinical Summary ---
Author Organization [employer] [facility] ity Address [address] [place] [address] Care Team Providers Care Sales Project Engineer Name Role Phone Unavailable Primary Care Provider Unavailabl e Social History Tobacco Use Types Packs/Day Years Used Date Smoking Tobacco: Never Assessed Comments Unknown Sex and Gender Information Value Date Recorded Sex Assigned at Not on file Legal Sex Female 10:47 PM EST Gender Identity Not on file Sexual Orientation Not on file Plan of Treatment Health Maintenance Due Date Last Done Comments Breast Cancer Screening 1961 DTaP,Tdap,and Td Vaccines (1 - Tdap) 01/28/1980 Cervical Cancer Screening: P ap Smear 1982 Pneumococcal Vaccine: 50+ Ye ars (1 of 1 - PCV) 2011 Zoster Vaccines (1 of 2) 2011 COVID-19 Vaccine ( - 2023-2 5 season) 2024 Influenza Vaccine (#1) 2024 Colorectal Cancer Screening: Colonoscopy 05/27/2024 Depression Screening 05/27/2024 HIV Screening 05/27/2024 Hepatitis C Screening 05/27/2024 Social Influencers of Health Screening 05/27/2024 RSV Immunization Adult Patie nts (1 - 1-dose 75+ series) 01/28/2036 HIB Vaccines Aged Out No longer eligi ble based on patient's age to complete this topic HPV Vaccines Aged Out No longer eligi ble based on patient's age to complete this topic Hepatitis A Vaccines Aged Out No long er eligible based on patient's age to complete this topic Hepatitis B Vaccines Aged Out No long er eligible based on patient's age to complete this topic IPV Vaccines Aged Out No longer eligi ble based on patient's age to complete this topic MMR Vaccines Aged Out No longer eligi ble based on patient's age to complete this topic Meningococcal ACWY Vaccine Aged Out N o longer eligible based on patient's age to complete this topic Meningococcal B Vacine Aged Out No lo nger eligible based on patient's age to complete this topic Pneumococcal Vaccine: Pediat rics (0 to 5 Years) and At-Risk Patients (6 to 64 Years) Aged Out No longer eligible b ased on patient's age to complete this topic RSV Immunization Patients Un tim 20 months Aged Out No longer eligible b ased on patient's age to complete this topic Varicella Vaccines Aged Out No longer eligible based on patient's age to complete this topic
[2024-11-22 09:53] LABS: Hematocrit 35.7 % (37.0-47.0); Hemoglobin 12.2 g/dl (12.0-16.0); Imm Gran Pct Auto 0.3 % (0.0-0.4); Mean Corpuscular HGB Conc 34.2 g/dl (31.0-35.0); Mean Corpuscular Hemoglobin 29.5 pg (27.0-33.0); Mean Corpuscular Volume 86.4 fL (80.0-98.0); Mean Platelet Volume 9.5 fL (9.4-12.3); Neutrophils Percent Auto 61.7 % (45-73); Platelet Count 317 X10*3/uL (160-400); Red Blood Count 4.13 X10*6/uL (4.20-5.50); Red Cell Distribution Width 13.2 % (11.0-16.0)
[2024-11-22 09:54] LABS: Basophils Percent Auto 0.5 % (0-2); Eosinophils Absolute Auto 0.2 X10*3/uL (0.0-0.4); Eosinophils Percent Auto 2.5 % (0-4); Imm Gran Abs Auto 0.02 X10*3/uL (0.00-0.03); Lymphocytes Absolute Auto 1.7 X10*3/uL (1.2-4.9); Lymphocytes Percent Auto 27.5 % (20-40); Monocytes Absolute Auto 0.5 X10*3/uL (0.1-1.2); Monocytes Percent Auto 7.5 % (2-11); Neutrophils Absolute Auto 3.7 x10*3/uL (2.0-8.3)
[2024-11-22 10:04] LABS: Estimated Average Glucose 105 mg/dL; Hemoglobin A1C 109.1922 umol/L; Hemoglobin A1c % 5.3 % (<6.0); Total Hemoglobin (HGBA1C) 3134.0152 umol/L
[2024-11-22 10:25] LABS: Creatinine Urine 65.14 mg/dL; Microalbumin Urine < 5.0 mg/L
[2024-11-22 10:43] LABS: Alanine Aminotransferase 13 U/L (0-31); Albumin Level 3.9 g/dL (3.5-5.0); Alkaline Phosphatase 92 U/L (39-117); Anion Gap 13 (12-20); Aspartate Amino Transferase 24 U/L (5-31); Bilirubin Total 0.3 mg/dL (0.0-1.0); Blood Urea Nitrogen 13 mg/dL (9-16); Calcium 9.1 mg/dL (8.4-10.2); Carbon Dioxide 25 mmol/L (22-29); Chloride 109 mmol/L (96-108); Cholesterol 98 mg/dL (<200); Estimated Glomerular Filt Rate 57; Glucose Random 75 mg/dL (60-115); HDL Cholesterol 29 mg/dL (>40); LDL Cholesterol Calculated 48 mg/dL (<100); Potassium 3.7 mmol/L (3.3-5.1); Sodium 143 mmol/L (135-145); Total Protein 7.2 g/dL (6.5-8.0); Triglycerides 106 mg/dL (<150)
[2024-11-22 11:04] LABS: Free T4 (Free Thyroxine) 1.08 ng/dL (0.71-1.85); Thyroid Stimulating Hormone 2.68 uIU/mL (0.32-4.0); Vitamin D 25-OH Total 52.8 ng/mL (>30)
[2024-11-22 11:15] LABS: Folate 6.5 ng/mL (> or = 4.0); Vitamin B12 > 2000 pg/mL (200-900)
[2024-11-23 19:28] LABS: Immunoglobulin E 14 kU/L (<OR=114)
[2024-11-26 20:58] LABS: N-Telopeptide 20 (see note); NTXCreaRU 66 mg/dL (20-275)
== END 2024-11-22 08:41 | disposition home or self-care (01) ==
LOC: HO.LAB 08:40
PROVIDERS: Absent Provider Physician Assistant; PCP Internal Medicine; Referring Provider Internal Medicine; Visit Provider Internal Medicine Endocrinology, Diabetes & Metabolism
DX: M81.0 Age-related osteoporosis without current pathological fracture (principal); E11.65 Type 2 diabetes mellitus with hyperglycemia; E78.00 Pure hypercholesterolemia, unspecified; T78.3XXA Angioneurotic edema, initial encounter; Z91.018 Allergy to other foods; Z88.0 Allergy status to penicillin
CPT/HCPCS: 36415; 80053; 80061; 82043; 82306; 82523; 82570; 82607; 82746; 82785; 83036; 84439; 84443; 85025

== ENCOUNTER 2024-12-07 09:21 | Outpatient (AMB) | payer OTHER, SELFPAY ==
[2024-12-07 09:33] VITALS: BP 104/62; PULSE 79; TEMP 36.2; O2SAT 99; BMI 31.2
--- NOTE | 2024-12-07 09:33 | MHC.PC.OV ---
Vital Signs 12/07/24 09:33 Height 4 ft 5 in Weight 124 lb 9.6 oz BMI 31.2 BP 104/62 Blood Pressure Location Lt brachial Position Sitting Pulse 79 Pulse Source Pulse Oximeter Temp 97.1 F Temp Source Temporal Artery Scan Pulse Oximetry (%) 99 Oxygen Delivery Method Room Air Intake Visit Reasons: DM Case Fitter Required: Yes Case Fitter Language: Hammersmith Helper Name: USed tablet- Oh [id number] Django Developer: Present Accompanied by: Self / Same As Patient Allergies apple [Apple] Allergy (Severe, Verified 12/07/24 09:35) SWELLING/HIVES nut - unspecified [nut] Allergy (Severe, Verified 12/07/24 09:35) SWELLING/HIVES orange Allergy (Severe, Verified 12/07/24 09:35) SWELLING/HIVES peanut [Peanut] Allergy (Severe, Verified 12/07/24 09:35) SWELLING/HIVES penicillin V Allergy (Severe, Verified 12/07/24 09:35) rash Pork/Porcine Containing Products [Pork/Porcine Product Derivatives] Allergy (Severe, Verified 12/07/24 09:35) SWELLING/HIVES strawberry [[place]] Allergy (Severe, Verified 12/07/24 09:35) SWELLING/HIVES raloxifene [[place]] Allergy (Intermediate, Verified 12/07/24 09:35) Unknown citalopram Allergy (Unknown, Verified 12/07/24 09:35) numbness legs,hands Penicillins Allergy (Unknown, Verified 12/07/24 09:35) RASH metformin Adverse Reaction (Intermediate, Verified 12/07/24 09:35) Diarrhea metoclopramide Adverse Reaction (Unknown, Verified 12/07/24 09:35) AGITATION From Soy Allergy (Severe, Uncoded 12/07/24 09:35) SWELLING,HIVES Tobacco use date assessed: 12/07/24 Dental Screening Dental Screen Date: 12/07/24 Did you have a dental visit in the last 12 months?: Yes Did you have a dental problem in the last 6 months where you did not have access to dental care?: No Was dental information given to patient?: Patient has dentist [facility] Medical History COVID-19 virus infection Medicare annual wellness visit, initial Encounter for annual routine gynecological examination Adult general medical exam Pre-op examination Foul smelling urine Snoring Allergic rhinitis Peripheral neuropathy Goiter Obesity (BMI 30-39.9) Breast asymmetry Breast density RLQ abdominal pain Hypothyroidism Vitamin D deficiency Hypercholesterolemia Type 2 diabetes mellitus with hyperglycemia Hip osteoarthritis Anxiety and depression Gastroparesis GERD (gastroesophageal reflux disease) Vitamin D deficiency Osteoporosis Surgical History Hx of foot surgery Hx of breast biopsy Hx of colonoscopy Hx of cholecystectomy Hx of tonsillectomy Hx of tubal ligation Hx of esophagogastroduodenoscopy Family History Father Alcoholism Mother Dementia Diabetes Heart disease Myocardial infarct Sister Breast cancer Brother Lung cancer Myocardial infarct Maternal Uncle Colon cancer Other Mental health disorder Substance use disorder Social History Housing: Apartment Alcohol intake: never Patient Tobacco Use Status: Never used Tobacco Tobacco use type: Cigarette e-Cigarette/Vaping Use: Never Used Second Hand Smoke Exposure: No service: No Current occupational status: employed Cognitive needs: No Hearing needs: No Vision needs: Yes (Glasses) Questionnaire Thrive Questionnaire Date Thrive assessed: 12/07/24 I am a: Patient What is your living situation today?: I have a steady place to live Within the past 12 months, did the food you bought not last and you didn't have the money to get more?: Never true Within the past 12 months, did you worry whether your food would run out before you got money to buy more?: Never true Do you have trouble paying for medicines?: No Do you have trouble getting transportation to medical appointments?: No Do you have trouble paying your heating and electricity bill?: No Do you have trouble taking care of your child, family member or friend?: No Do you have trouble with day-to-day activities such as bathing, preparing meals, shopping, managing finances, etc.?: No Are you currently unemployed and looking for a job?: No Are you interested in more education?: No Please select the resources that you would like help with: None Currently or been in a relationship where the following occur: No concerns reported THRIVE Score: 0 AUDIT C Alcohol Use Questionnaire (AUDIT-C) 1. How often do you have a drink containing alcohol?: Never 3. How often do you have six or more drinks on one occasion?: Never Total Score: 0 Score Reviewed/Action Taken: No SEFERINO-7 AMB Questionnaire SEFERINO-7 Date SEFERINO - 7 assessed: 12/12/23 Source: Developed by Drs. Tyler Lilly, Kandice Villalobos, Gerber Freeman and colleagues, with an educational clarissa from [employer]. Physical exam (Primary Care) Vital Signs: Last Vital Signs Temp 97.1 F 12/07/24 09:33 Oxygen Delivery Method Room Air 12/07/24 09:33 BMI result Body Mass Index 31.2 Tobacco/Smoking Status: Tobacco use Status Tobacco use date assessed 08/17/24 12/07/24 09:34 Patient Tobacco Use Status Never used Tobacco 12/07/24 09:34 Tobacco use type Cigarette 12/07/24 09:34 e-Cigarette/Vaping Use Never Used 12/07/24 09:34 Thrive Assessment: Date of Thrive Assessment Date Thrive assessed 04/30/24 12/07/24 09:34 Currently or been in a relationship where the following occur: No concerns reported Const General: alert; No acute distress Eyes Conjunctivae: conjunctivae normal Resp Auscultation: clear to auscultation bilaterally Cardio Rate: regular rate Rhythm: regular rhythm GI Inspection: Yes normal to inspection Extrem General: Yes normal to inspection and No edema Coding Level of Care Code Est Pt Level 4 (45693) Complex EM visit Add On G2211 Diagnoses Type 2 diabetes mellitus with hyperglycemia, without long-term current use of insulin E11.65 Diabetes mellitus nursing home insulin use: without regional intermodal truck driver use Gastroesophageal reflux disease without esophagitis K21.9 Esophagitis presence: without esophagitis Hypercholesterolemia E78.00 Age-related osteoporosis without current pathological fracture M81.0 Osteoporosis type: age-related Presence of current pathological fracture: without current pathological fracture SWAN (nonalcoholic steatohepatitis) K75.81 Generalized anxiety disorder F41.1 Assessment & Plan Assessment & Plan (1) Type 2 diabetes mellitus with hyperglycemia: Comment: Dr. Will 10/2022 Code(s): E11.65 - Type 2 diabetes mellitus with hyperglycemia Category: Medical Qualifiers: Diabetes mellitus regional intermodal truck driver insulin use: without nursing home use Qualified Code(s): E11.65 - Type 2 diabetes mellitus with hyperglycemia Plan: Decrease the amount of carbohydrate intake, pasta, bread, rice and potatoes are all sugar and that is aside from all the sweet stuff, remember that fruits are good but they are Sweet also. Hemoglobin A1c goal of less than 6.5. Patient's hemoglobin A1c is in the normal range on Tresiba 24 units once a day and Ozempic 0.5 mg once a a week with the decrease A1c will need to decrease the insulin dose (2) GERD (gastroesophageal reflux disease): Comment: Hiatal hernia, gastritis gastroparesis Code(s): K21.9 - Gastro-esophageal reflux disease without esophagitis Category: Medical Qualifiers: Esophagitis presence: without esophagitis Qualified Code(s): K21.9 - Gastro-esophageal reflux disease without esophagitis Plan: Avoid the foods that causes that usually spicy foods, tomato products, juices, coffee, soda and foods that your sensitive to. After eating do not lie down, allow 3-4 hours before in lie down. And keep the head of bed above 30 degrees to avoid the acid from going up. (3) Hypercholesterolemia: Code(s): E78.00 - Pure hypercholesterolemia, unspecified Category: Medical Plan: Avoid fried foods, chicken skin, eggs, butter margarine, pastries and meat. Be it pork or beef they have a lot of cholesterol LDL goal of less than 100 and triglyceride of less than 150 (4) Osteoporosis: Comment: November Code(s): M81.0 - Age-related osteoporosis without current pathological fracture Category: Medical Qualifiers: Osteoporosis type: age-related Presence of current pathological fracture: without current pathological fracture Qualified Code(s): M81.0 - Age-related osteoporosis without current pathological fracture Plan: Up-to-date with bone density December 2023 (5) SWAN (nonalcoholic steatohepatitis): Comment: 02/2020 NORMAL RENAL PANEL EXCEPT FOR AN elevated nonfasting glucose of 207, AST/ALT 27/36 with remainder normal, hemoglobin A1c is 6.2, vitamin B12 folate are normal, CBC shows borderline anemia normocytic, normochromic, intrinsic factor antibodies are negative, parietal cell L it antibodies are not elevated, IgG panel is completely normal, mitochondrial antibodies are negative, smooth muscle antibodies are negative, CURRENT Laboratory Tests 11/28/23 08:46 WBC 5.0 RBC 4.26 Hgb 12.1 Hct 37.5 Plt Count 317 Estimated GFR > 60 Total Bilirubin 0.4 AST 24 ALT 19 Alkaline Phosphatase 87 Amylase 53 Lipase 21 ULTRASOUND OF THE ABDOMEN 09/02/22 IMPRESSION: There is subtly increased hepatic echogenicity. Mild hepatic steatosis could give this appearance. Code(s): K75.81 - Nonalcoholic steatohepatitis (SWAN) Category: Medical Plan: Low-fat diet and exercise (6) Generalized anxiety disorder: Comment: [facility] every other week mt. [place] Code(s): F41.1 - Generalized anxiety disorder Category: Medical Plan: Continue with medication sertraline Plan History of Present Illness The patient is a 64-year-old female presenting for follow-up care to manage her chronic health conditions. Conditions include obesity, diabetes mellitus, gastroesophageal reflux disease, hypercholesterolemia, osteoporosis, non-alcoholic steatohepatitis, generalized anxiety disorder, and hypothyroidism. Her diabetes is controlled with Tresiba and Ozempic, reflected by her recent hemoglobin A1c of 5.3. The goal for diabetes management remains an A1c less than 6.5. She is also managing her cholesterol levels with lifestyle and medications, targeting LDL below 100. Preventive care has been proactive, with recent mammograms, bone densities, and colon tests conducted and various vaccines up to date. She denied any new complaints or physical issues during the visit but requested refills for some of her ongoing medications, including those for anxiety and allergies. Health Maintenance - Bone density up to date as of December 2023 - Colon screening up to date as of December 2023 - Mammogram up to date as of July 2024 - Recent bloodwork on November 22 showing normal results - Vaccinations: Shingles, Tetanus, Pneumonia Social History - No specific social determinants of health discussed in detail Review of Systems - Musculoskeletal: Denies swelling or entrainment - General: Denies any pains - Psychiatric: Denies additional symptoms beyond managed anxiety; continuing with current regimen Physical Exam Results - Labs: Normal blood count, renal function, liver function, thyroid levels; LDL 48, glucose controlled with A1c 5.3 Plan We will continue the current management of her diabetes and cholesterol with a slight reduction in insulin dose. The patient remains on Tresiba and Ozempic, and her lifestyle modifications are reinforced. Medications for anxiety and hypothyroidism continue unchanged. We ensured her Ozempic and Claritin prescriptions were refilled and confirmed the ongoing use of Lorazepam. The patient is encouraged to maintain her proactive approach to preventive health care with the next planned screenings. Patient was informed and verbally consented to the use of an ambient scribe for clinic note documentation during this visit. Discussion Notes We reviewed the patient's management plans for her chronic conditions and the importance of continued adherence to her medication regimen and lifestyle modifications. I explained the rationale for reducing her insulin dose while maintaining other medications as previously prescribed. The patient is informed about her excellent control of diabetes and cholesterol, reassuring her about maintenance of current therapies. We discussed the benefits of regular preventive screenings and vaccinations in her overall health strategy. Any changes and plans, including refilling prescriptions, were communicated clearly, and the patient agreed with the outlined management continuing to be proactive in her health maintenance. Patient Instructions - Continue current medications including Tresiba, Ozempic, and thyroid medication. - Follow a low fat diet and exercise regularly. - Monitor blood sugar levels as advised. - Obtain refills for Ozempic and Claritin. - Use Lorazepam as prescribed for anxiety. - Maintain regular health check-ups and screenings. - Report any new symptoms or concerns as they arise. Medications: Changed From insulin degludec (Tresiba FlexTouch U-100 insulin) 24 units (0.24 mL) subcut DAILY 30 days 7.2 mL 3RF E11.65 - Type 2 diabetes mellitus with hyperglycemia To insulin degludec (Tresiba FlexTouch U-100 insulin) 12 units (0.12 mL) subcut DAILY 30 days 3.6 mL 3RF E11.65 - Type 2 diabetes mellitus with hyperglycemia Refilled loratadine 10 mg PO DAILY 90 tabs 2RF J30.9 - Allergic rhinitis, unspecified semaglutide (Ozempic) for 4 weeks 0.5 mg (0.736 mL) subcut QWEEK 30 days 3.68 mL 0RF E11.65 - Type 2 diabetes mellitus with hyperglycemia Patient Instructions: Continue with counseling and therapy
--- OUTSIDE RECORDS SUMMARY | 2024-12-07 10:05 | XMS_ITS | Clinical Summary ---
Author Organization [facility] ity Address [address] [place] [address] Care Team Providers Care Helicopter Specialist Name Role Phone Unavailable Primary Care Provider [...] Vaccine ( - 2023-2 5 season) 2024 Colorectal Cancer Screening: Colonoscopy 05/27/2024 Depression Screening 05/27/2024 HIV Screening 05/27/2024 Hepatitis C Screening 05/27/2024 Social Influencers of Health Screening 05/27/2024 Influenza Vaccine (Season Ended) 2025 RSV Immunization Adult Patie nts (1 - [...] age to complete this topic Meningococcal B Vaccine Aged Out No l onger eligible based on patient's age to complete [...]
== END 2024-12-07 10:04 | disposition home or self-care (01) ==
LOC: HO.HMCH 09:21
PROVIDERS: PCP Internal Medicine; Visit Provider Internal Medicine
DX: E11.65 Type 2 diabetes mellitus with hyperglycemia (principal); K21.9 Gastro-esophageal reflux disease without esophagitis; E78.00 Pure hypercholesterolemia, unspecified; M81.0 Age-related osteoporosis without current pathological fracture; K75.81 Nonalcoholic steatohepatitis (NASH); F41.1 Generalized anxiety disorder

== ENCOUNTER → 2024-12-07 09:21 | Outpatient (BNVA) | payer OTHER, SELFPAY | PROVIDERS: PCP Internal Medicine; Visit Provider Internal Medicine | DX: E11.65 Type 2 diabetes mellitus with hyperglycemia (principal); K21.9 Gastro-esophageal reflux disease without esophagitis; E78.00 Pure hypercholesterolemia, unspecified; M81.0 Age-related osteoporosis without current pathological fracture; K75.81 Nonalcoholic steatohepatitis (NASH); F41.1 Generalized anxiety disorder; E66.9 Obesity, unspecified; E03.9 Hypothyroidism, unspecified; Z68.31 Body mass index [BMI] 31.0-31.9, adult | CPT/HCPCS: 99212 ==

== ENCOUNTER 2025-01-28 08:43 | Outpatient (AMB) | payer OTHER, SELFPAY ==
--- NOTE | 2025-01-28 08:46 | MHC.OFFVIS ---
Vital Signs 01/28/25 08:56 Height 4 ft 5 in Weight 125 lb BMI 31.3 BP 126/70 Blood Pressure Location Rt brachial Position Sitting Pulse 70 Pulse Source Pulse Oximeter Pulse Oximetry (%) 97 Oxygen Delivery Method Room Air Intake Visit Reasons: 6 months f/u Intake Note: Established patient for mgmt of GERD + CIC. CC; C.O. epigastric pain, belching, and nausea. Pt comments that they would like to discuss concerns involving their linzess and their pantoprazole as they have read some information pertaining to possible side effects of each medication. Site Technician Required: Yes Site Technician Services: Site Technician Present Site Technician Name: [facility] [place] [id number] Information Interpreted: clinical only Accompanied by: Self / Same As Patient Allergies apple [Apple] Allergy (Severe, Verified 01/28/25 08:47) SWELLING/HIVES nut - unspecified [nut] Allergy (Severe, Verified 01/28/25 08:47) SWELLING/HIVES orange Allergy (Severe, Verified 01/28/25 08:47) SWELLING/HIVES peanut [Peanut] Allergy (Severe, Verified 01/28/25 08:47) SWELLING/HIVES penicillin V Allergy (Severe, Verified 01/28/25 08:47) rash Pork/Porcine Containing Products [Pork/Porcine Product Derivatives] Allergy (Severe, Verified 01/28/25 08:47) SWELLING/HIVES strawberry [[place]] Allergy (Severe, Verified 01/28/25 08:47) SWELLING/HIVES raloxifene [[place]] Allergy (Intermediate, Verified 01/28/25 08:47) Unknown citalopram Allergy (Unknown, Verified 01/28/25 08:47) numbness legs,hands Penicillins Allergy (Unknown, Verified 01/28/25 08:47) RASH soy Allergy (Unknown, Verified 01/28/25 08:47) Hives metformin Adverse Reaction (Intermediate, Verified 01/28/25 08:47) Diarrhea metoclopramide Adverse Reaction (Unknown, Verified 01/28/25 08:47) AGITATION HPI HPI 6 months f/u: Details: Assessment & Plan (1) Chronic idiopathic constipation: Code(s): K59.04 - Chronic idiopathic constipation Category: Medical (2) GERD (gastroesophageal reflux disease): Comment: Hiatal hernia, gastritis gastroparesis Code(s): K21.9 - Gastro-esophageal reflux disease without esophagitis Category: Medical Qualifiers: Esophagitis presence: without esophagitis Qualified Code(s): K21.9 - Gastro-esophageal reflux disease without esophagitis (3) SWAN (nonalcoholic steatohepatitis): Comment: 02/2020 NORMAL RENAL PANEL EXCEPT FOR AN elevated nonfasting glucose of 207, AST/ALT 27/36 with remainder normal, hemoglobin A1c is 6.2, vitamin B12 folate are normal, CBC shows borderline anemia normocytic, normochromic, intrinsic factor antibodies are negative, parietal cell L it antibodies are not elevated, IgG panel is completely normal, mitochondrial antibodies are negative, smooth muscle antibodies are negative, CURRENT Laboratory Tests 11/28/23 08:46 WBC 5.0 RBC 4.26 Hgb 12.1 Hct 37.5 Plt Count 317 Estimated GFR > 60 Total Bilirubin 0.4 AST 24 ALT 19 Alkaline Phosphatase 87 Amylase 53 Lipase 21 ULTRASOUND OF THE ABDOMEN 09/02/22 IMPRESSION: There is subtly increased hepatic echogenicity. Mild hepatic steatosis could give this appearance. Code(s): K75.81 - Nonalcoholic steatohepatitis (SWAN) Category: Medical Plan [place] #Alexandra Live She has been having trouble with a feeling of upset stomach and a lot of burping that smells like sulfur, then she will have sudden onset of diarrhea. This happened twice in June and once this month so far. She can not ID any foods that may be setting it off, and I ask her to try to think about this. The only new medication is Ozempic and this could be a c/f. I think she should try taking 2 -3 extra bentyl 10mg when this happens to see if seh can head off the bowel irritability that is likely causing this. She denies HB so her pantorpazole is working well, as well as her LInzess. ROV 6 weeks to eval. Remind her the next visit to get labs and ultrasound Orders: Orders Comprehensive Met. Panel Today K75.81 - Nonalcoholic steatohepatitis (SWAN) US abdomen complete Today K75.81 - Nonalcoholic steatohepatitis (SWAN) Medications: Changed From dicyclomine 10 mg PO QID 360 caps 1RF To dicyclomine 20 mg (2 x 10 mg) PO QID 360 caps 1RF From dicyclomine 10 mg PO TID 270 caps 1RF To dicyclomine 10 mg PO QID 360 caps 1RF Refilled linaclotide (Linzess) 290 mcg PO DAILY 90 caps 0RF 90 days K59.04 - Chronic idiopathic constipation pantoprazole 40 mg PO BID 180 tabs 0RF simethicone 180 mg PO TID 270 caps 2RF R14.0 - Abdominal distension (gaseous) Discontinued sulfamethoxazole-trimethoprim 800-160 mg (Bactrim DS) Discontinued Reason: Patient Completed Course 1 tab PO BID 14 tabs 0RF R05.9 - Cough, unspecified LABS Laboratory Tests 11/22/24 09:03 WBC 6.0 Hgb 12.2 Hct 35.7 L MCV 86.4 MCH 29.5 Plt Count 317 Estimated GFR 57 Total Bilirubin 0.3 AST 24 ALT 13 Alkaline Phosphatase 92 TSH 2.68 ULTRASOUND OF THE ABDOMEN 08/10/2024 FINDINGS: PANCREAS: Limited visualization of pancreatic tail and head. Imaged portion of pancreatic body is unremarkable. ABDOMINAL AORTA: The proximal, mid, and distal segments are normal in caliber. INFERIOR VENA CAVA: Visualized portions are normal. LIVER: Diffusely heterogeneous hepatic echotexture is suggestive of hepatocellular disease and severely limits visualization. Correlation with liver function tests and clinical exam recommended to determine further management. GALLBLADDER: The gallbladder is surgically absent. COMMON BILE DUCT: Normal in caliber measuring 0.4 cm in diameter. RIGHT KIDNEY: Mild pelvocaliectasis. No obstructing renal calculi. Limited visualization. The kidney measures 9.0 cm in maximum dimension. LEFT KIDNEY: Mild pelvocaliectasis. No obstructing renal calculi. Limited visualization. The kidney measures 9.6 cm in maximum dimension. SPLEEN: The spleen measures 7.1 cm in maximum dimension. FREE FLUID: None. US/US abdomen complete IMPRESSION: 1. Diffusely heterogeneous hepatic echotexture is suggestive of hepatocellular disease and severely limits visualization. Correlation with liver function tests and clinical exam recommended to determine further management. 2. The gallbladder is surgically absent. 3. Mild bilateral pelvocaliectasis. No obstructing renal calculi. TODAYS VISIT [place] #Karina lIVE Today she tells me that she has noticed that the day after she takes the Linzess she has severe bowel cramping and nausea and can not eat all day. With discussion it turns out that she is trying not to take it every day and will wait until she has not had a bowel movement for 3 days before taking it. At this point she will have severe cramping and then diarrhea. She says if she takes the 290 dose every day she will have diarrhea. This is new information for me. This problems discussion about how Linzess is intended to be used. I let her know that this is safe and is in fact made to be used every day chronically for constipation. It is not like the cyqa-pme-vlcpmaf laxatives that breathes dependence and causes megacolon. What is happening as she is waiting too long and then the Linzess is trying to kick her bowels and to motion causing severe cramping and of course nausea due to the lack of motility. She is also on Ozempic which is a confounding factor. After a lot of Education I convinced her that the dose of the Linzess is too high and we want to decrease the dose and find the level where she can take it every day and keep her bowels moving on a daily basis. Will decrease to 145 micro g and titrate from there. If we can not successfully find a way to do this with Linzess we will try a different medication. She continues on her pantoprazole and simethicone. Return office visit in 6 weeks. [facility] Medical History COVID-19 virus infection Medicare annual wellness visit, initial Encounter for annual routine gynecological examination Adult general medical exam Pre-op examination Foul smelling urine Snoring Allergic rhinitis Peripheral neuropathy Goiter Obesity (BMI 30-39.9) Breast asymmetry Breast density RLQ abdominal pain Hypothyroidism Vitamin D deficiency Hypercholesterolemia Type 2 diabetes mellitus with hyperglycemia Hip osteoarthritis Anxiety and depression Gastroparesis GERD (gastroesophageal reflux disease) Vitamin D deficiency Osteoporosis Surgical History Hx of foot surgery Hx of breast biopsy Hx of colonoscopy Hx of cholecystectomy Hx of tonsillectomy Hx of tubal ligation Hx of esophagogastroduodenoscopy Family History Father Alcoholism Mother Dementia Diabetes Heart disease Myocardial infarct Sister Breast cancer Brother Lung cancer Myocardial infarct Maternal Uncle Colon cancer Other Mental health disorder Substance use disorder Social History Housing: Apartment Alcohol intake: never Patient Tobacco Use Status: Never used Tobacco Tobacco use type: Cigarette e-Cigarette/Vaping Use: Never Used Second Hand Smoke Exposure: No service: No Current occupational status: employed Cognitive needs: No Hearing needs: No Vision needs: Yes (Glasses) Review of Systems Const Denies fatigue, Denies fever(s), Denies night sweats, Denies poor appetite and Denies weight loss Eyes Details: glasses Reports requires corrective lenses ENT Reports Normal hearing present, Denies dental pain, Denies dysphagia, Denies hearing loss, Denies mouth pain, Denies odynophagia, Denies throat swelling, Denies tongue swelling and Reports other (Dentition adequate) Card Reports no additional complaints Resp Reports no additional complaints GI Details: Denies abdominal pain, Denies melena, Denies bloating, Denies hematochezia, Reports constipation, Reports GI cramping, Denies dysphagia, Denies excessive flatus, Denies early satiety, Reports heartburn, Denies diarrhea, Reports loose stools, Reports nausea, Denies odynophagia, Denies vomiting and Denies hematemesis Skin/Breast Denies pruritus, Denies lesions, Denies rash and Denies jaundice Neuro Reports Normal hearing present and Denies Abnormal speech present Endo Denies fatigue Aller/Immun Denies throat swelling and Denies tongue swelling Physical Exam Const General: cooperative, no acute distress, well developed and well groomed Nutritional Appearance: well nourished and obese Orientation/consciousness: oriented to person, oriented to place and oriented to time Limitations: language barrier HEENT Head: Yes normocephalic and Yes atraumatic Eyes General: appearance normal, both eyes and all related structures Pupils: Equal, round and reactive pupils present Neck Neck: Yes normal visual inspection and Yes no lymphadenopathy Thyroid: Thyroid normal Resp Effort & Inspection: normal respiratory effort and able to speak in complete sentences Auscultation: clear to auscultation bilaterally Cardio Rate: regular rate Rhythm: regular rhythm Heart sounds: Normal, physiologic split S2 sound present Peripheral pulses: radial pulses present and posterior tibial pulses present GI Inspection: No distended, No Abdominal panniculus present and Yes obesity Palpation (GI): Soft to palpation, nontender, no guarding, not rigid and No hepatosplenomegaly present Percussion: Yes normal to percussion Auscultation: normal bowel sounds Rectal Exam - Female: deferred Skin General skin exam: no rashes or lesions noted, turgor normal, skin not dry, no jaundice, No spider nevi and no striae Rashes: no rashes Nails: normal Neuro General: oriented to person, oriented to place and oriented to time Cranial nerves: Yes Equal, round and reactive pupils present and Yes Normal hearing present Speech: No Abnormal speech present Extrem General: Yes normal to inspection, No clubbing, No cyanosis and No edema Psych Appearance: grossly normal and well kempt Mental Status: mental status grossly normal Speech and movement: Normal speech and movement present Affect: normal affect Attitude: cooperative Thought process: Normal thought process present and not confabulating Thought content: Normal thought content present Insight: Limited insight present (Psych) Judgement: Limited judgement present (Psych) Results Reviewed Results Reviewed: Laboratory Tests 11/22/24 09:03 WBC 6.0 Hgb 12.2 Hct 35.7 L MCV 86.4 MCH 29.5 Plt Count 317 Estimated GFR 57 Total Bilirubin 0.3 AST 24 ALT 13 Alkaline Phosphatase 92 TSH 2.68 ULTRASOUND OF THE ABDOMEN 08/10/2024 FINDINGS: PANCREAS: Limited visualization of pancreatic tail and head. Imaged portion of pancreatic body is unremarkable. ABDOMINAL AORTA: The proximal, mid, and distal segments are normal in caliber. INFERIOR VENA CAVA: Visualized portions are normal. LIVER: Diffusely heterogeneous hepatic echotexture is suggestive of hepatocellular disease and severely limits visualization. Correlation with liver function tests and clinical exam recommended to determine further management. GALLBLADDER: The gallbladder is surgically absent. COMMON BILE DUCT: Normal in caliber measuring 0.4 cm in diameter. RIGHT KIDNEY: Mild pelvocaliectasis. No obstructing renal calculi. Limited visualization. The kidney measures 9.0 cm in maximum dimension. LEFT KIDNEY: Mild pelvocaliectasis. No obstructing renal calculi. Limited visualization. The kidney measures 9.6 cm in maximum dimension. SPLEEN: The spleen measures 7.1 cm in maximum dimension. FREE FLUID: None. US/US abdomen complete IMPRESSION: 1. Diffusely heterogeneous hepatic echotexture is suggestive of hepatocellular disease and severely limits visualization. Correlation with liver function tests and clinical exam recommended to determine further management. 2. The gallbladder is surgically absent. 3. Mild bilateral pelvocaliectasis. No obstructing renal calculi. Assessment & Plan Assessment & Plan (1) Chronic idiopathic constipation: Code(s): K59.04 - Chronic idiopathic constipation Category: Medical (2) SWAN (nonalcoholic steatohepatitis): Comment: 02/2020 NORMAL RENAL PANEL EXCEPT FOR AN elevated nonfasting glucose of 207, AST/ALT 27/36 with remainder normal, hemoglobin A1c is 6.2, vitamin B12 folate are normal, CBC shows borderline anemia normocytic, normochromic, intrinsic factor antibodies are negative, parietal cell L it antibodies are not elevated, IgG panel is completely normal, mitochondrial antibodies are negative, smooth muscle antibodies are negative, CURRENT Laboratory Tests 11/22/24 09:03 WBC 6.0 Hgb 12.2 Hct 35.7 L MCV 86.4 MCH 29.5 Plt Count 317 Estimated GFR 57 Total Bilirubin 0.3 AST 24 ALT 13 Alkaline Phosphatase 92 TSH 2.68 ULTRASOUND OF THE ABDOMEN 08/10/2024 FINDINGS: PANCREAS: Limited visualization of pancreatic tail and head. Imaged portion of pancreatic body is unremarkable. ABDOMINAL AORTA: The proximal, mid, and distal segments are normal in caliber. INFERIOR VENA CAVA: Visualized portions are normal. LIVER: Diffusely heterogeneous hepatic echotexture is suggestive of hepatocellular disease and severely limits visualization. Correlation with liver function tests and clinical exam recommended to determine further management. GALLBLADDER: The gallbladder is surgically absent. COMMON BILE DUCT: Normal in caliber measuring 0.4 cm in diameter. RIGHT KIDNEY: Mild pelvocaliectasis. No obstructing renal calculi. Limited visualization. The kidney measures 9.0 cm in maximum dimension. LEFT KIDNEY: Mild pelvocaliectasis. No obstructing renal calculi. Limited visualization. The kidney measures 9.6 cm in maximum dimension. SPLEEN: The spleen measures 7.1 cm in maximum dimension. FREE FLUID: None. US/US abdomen complete IMPRESSION: 1. Diffusely heterogeneous hepatic echotexture is suggestive of hepatocellular disease and severely limits visualization. Correlation with liver function tests and clinical exam recommended to determine further management. 2. The gallbladder is surgically absent. 3. Mild bilateral pelvocaliectasis. No obstructing renal calculi. Code(s): K75.81 - Nonalcoholic steatohepatitis (SWAN) Category: Medical (3) GERD (gastroesophageal reflux disease): Comment: Hiatal hernia, gastritis gastroparesis Code(s): K21.9 - Gastro-esophageal reflux disease without esophagitis Category: Medical Qualifiers: Esophagitis presence: without esophagitis Qualified Code(s): K21.9 - Gastro-esophageal reflux disease without esophagitis Plan [place] #Karina lIVE Today she tells me that she has noticed that the day after she takes the Linzess she has severe bowel cramping and nausea and can not eat all day. With discussion it turns out that she is trying not to take it every day and will wait until she has not had a bowel movement for 3 days before taking it. At this point she will have severe cramping and then diarrhea. She says if she takes the 290 dose every day she will have diarrhea. This is new information for me. This problems discussion about how Linzess is intended to be used. I let her know that this is safe and is in fact made to be used every day chronically for constipation. It is not like the odsp-anw-usjsgat laxatives that breathes dependence and causes megacolon. What is happening as she is waiting too long and then the Linzess is trying to kick her bowels and to motion causing severe cramping and of course nausea due to the lack of motility. She is also on Ozempic which is a confounding factor. After a lot of Education I convinced her that the dose of the Linzess is too high and we want to decrease the dose and find the level where she can take it every day and keep her bowels moving on a daily basis. Will decrease to 145 micro g and titrate from there. If we can not successfully find a way to do this with Linzess we will try a different medication. She continues on her pantoprazole and simethicone. Return office visit in 6 weeks. Medications: New linaclotide (Linzess) Take first thing in the morning with a full glass of water. 145 mcg PO QAM 30 caps 6RF K58.1 - Irritable bowel syndrome with constipation Refilled simethicone 180 mg PO TID 270 caps 2RF R14.0 - Abdominal distension (gaseous) Discontinued linaclotide (Linzess) Discontinued Reason: Doctor's Order 290 mcg PO DAILY 90 caps 0RF K59.04 - Chronic idiopathic constipation Coding Level of Care Code Est Pt Level 3 (09071) Diagnoses Chronic idiopathic constipation K59.04 SWAN (nonalcoholic steatohepatitis) K75.81 Gastroesophageal reflux disease without esophagitis K21.9 Esophagitis presence: without esophagitis
--- OUTSIDE RECORDS SUMMARY | 2025-01-28 08:55 | XMS_ITS | Clinical Summary ---
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
[2025-01-28 08:56] VITALS: BP 126/70; PULSE 70; O2SAT 97; BMI 31.3
== END 2025-01-28 09:17 | disposition home or self-care (01) ==
LOC: HO.HGI 08:44
PROVIDERS: PCP Internal Medicine; Visit Provider Nurse Practitioner
DX: K59.04 Chronic idiopathic constipation (principal); K75.81 Nonalcoholic steatohepatitis (NASH); K21.9 Gastro-esophageal reflux disease without esophagitis
CPT/HCPCS: 99213

== ENCOUNTER → 2025-01-28 08:43 | Outpatient (BNVA) | payer OTHER, SELFPAY | PROVIDERS: PCP Internal Medicine; Visit Provider Nurse Practitioner | DX: K59.04 Chronic idiopathic constipation (principal); K75.81 Nonalcoholic steatohepatitis (NASH); K21.9 Gastro-esophageal reflux disease without esophagitis | CPT/HCPCS: 99212 ==

== ENCOUNTER 2025-03-17 11:55 | Outpatient (AMB) | payer OTHER, SELFPAY ==
--- NOTE | 2025-03-17 11:59 | A.OFFVIS_ITS ---
Vital Signs 03/17/25 12:21 Height 4 ft 5 in Weight 133 lb 9.602 oz BMI 33.4 BP 139/77 Blood Pressure Location Rt brachial Position Sitting Pulse 69 Intake Visit Reasons: Eval decrease Linzess Intake Note: Gina returns in follow up of [facility] to evaluate Linzess. CC: Patient reports that she has been taking Linzess every night and she is having daily BMs. Per patient stools are a little bit hard. Denies other GI symptoms or concerns. Information Director Required: Yes Information Director Name: Corinne CRUZ Accompanied by: Self / Same As Patient Allergies raloxifene (Evista) Allergy (Intermediate, Verified 03/17/25 12:31) Unknown citalopram Allergy (Unknown, Verified 03/17/25 12:31) numbness legs,hands soy Allergy (Unknown, Verified 03/17/25 12:31) Hives pear Allergy (Verified 03/17/25 12:31) Unknown metformin Adverse Reaction (Intermediate, Verified 03/17/25 12:31) Diarrhea metoclopramide Adverse Reaction (Unknown, Verified 03/17/25 12:31) AGITATION HPI HPI Eval decrease Linzess: Details: Assessment & Plan (1) Chronic idiopathic constipation: Code(s): K59.04 - Chronic idiopathic constipation Category: Medical (2) SWAN (nonalcoholic steatohepatitis): Comment: 02/2020 NORMAL RENAL PANEL EXCEPT FOR AN elevated nonfasting glucose of 207, AST/ALT 27/36 with remainder normal, hemoglobin A1c is 6.2, vitamin B12 folate are normal, CBC shows borderline anemia normocytic, normochromic, intrinsic factor antibodies are negative, parietal cell L it antibodies are not elevated, IgG panel is completely normal, mitochondrial antibodies are negative, smooth muscle antibodies are negative, CURRENT Laboratory Tests 11/22/24 09:03 WBC 6.0 Hgb 12.2 Hct 35.7 L MCV 86.4 MCH 29.5 Plt Count 317 Estimated GFR 57 Total Bilirubin 0.3 AST 24 ALT 13 Alkaline Phosphatase 92 TSH 2.68 ULTRASOUND OF THE ABDOMEN 08/10/2024 FINDINGS: PANCREAS: Limited visualization of pancreatic tail and head. Imaged portion of pancreatic body is unremarkable. ABDOMINAL AORTA: The proximal, mid, and distal segments are normal in caliber. INFERIOR VENA CAVA: Visualized portions are normal. LIVER: Diffusely heterogeneous hepatic echotexture is suggestive of hepatocellular disease and severely limits visualization. Correlation with liver function tests and clinical exam recommended to determine further management. GALLBLADDER: The gallbladder is surgically absent. COMMON BILE DUCT: Normal in caliber measuring 0.4 cm in diameter. RIGHT KIDNEY: Mild pelvocaliectasis. No obstructing renal calculi. Limited visualization. The kidney measures 9.0 cm in maximum dimension. LEFT KIDNEY: Mild pelvocaliectasis. No obstructing renal calculi. Limited visualization. The kidney measures 9.6 cm in maximum dimension. SPLEEN: The spleen measures 7.1 cm in maximum dimension. FREE FLUID: None. US/US abdomen complete IMPRESSION: 1. Diffusely heterogeneous hepatic echotexture is suggestive of hepatocellular disease and severely limits visualization. Correlation with liver function tests and clinical exam recommended to determine further management. 2. The gallbladder is surgically absent. 3. Mild bilateral pelvocaliectasis. No obstructing renal calculi. Code(s): K75.81 - Nonalcoholic steatohepatitis (SWAN) Category: Medical (3) GERD (gastroesophageal reflux disease): Comment: Hiatal hernia, gastritis gastroparesis Code(s): K21.9 - Gastro-esophageal reflux disease without esophagitis Category: Medical Qualifiers: Esophagitis presence: without esophagitis Qualified Code(s): K21.9 - Gastro-esophageal reflux disease without esophagitis Plan Cam[place]onian #Karina Diana Today she tells me that she has noticed that the day after she takes the Linzess she has severe bowel cramping and nausea and can not eat all day. With discussion it turns out that she is trying not to take it every day and will wait until she has not had a bowel movement for 3 days before taking it. At this point she will have severe cramping and then diarrhea. She says if she takes the 290 dose every day she will have diarrhea. This is new information for me. This problems discussion about how Linzess is intended to be used. I let her know that this is safe and is in fact made to be used every day chronically for constipation. It is not like the [id number] laxatives that breathes dependence and causes megacolon. What is happening as she is waiting too long and then the Linzess is trying to kick her bowels and to motion causing severe cramping and of course nausea due to the lack of motility. She is also on Ozempic which is a confounding factor. After a lot of Education I convinced her that the dose of the Linzess is too high and we want to decrease the dose and find the level where she can take it every day and keep her bowels moving on a daily basis. Will decrease to 145 micro g and titrate from there. If we can not successfully find a way to do th is with Linzess we will try a different medication. She continues on her pantoprazole and simethicone. Return office visit in 6 weeks. Medications: New linaclotide (Linzess) Take first thing in the morning with a full glass of water. 145 mcg PO QAM 30 caps 6RF K58.1 - Irritable bowel syndrome with constipation Refilled simethicone 180 mg PO TID 270 caps 2RF R14.0 - Abdominal distension (gaseous) Discontinued linaclotide (Linzess) Discontinued Reason: Doctor's Order 290 mcg PO DAILY 90 caps 0RF K59.04 - Chronic idiopathic constipation TODAY'S VISIT Cam[place] #V Live She is currently on pantoprazole, simehticone and LInzess, just reduced to 145mcg from 290. With the Linzess 145 micro g she is able to take it daily and she says this has resolved her stooling problems. She is not happy with her GI regimen. Return office visit in 6 months [facility] Medical History COVID-19 virus infection Medicare annual wellness visit, initial Encounter for annual routine gynecological examination Adult general medical exam Pre-op examination Foul smelling urine Snoring Allergic rhinitis Peripheral neuropathy Goiter Obesity (BMI 30-39.9) Breast asymmetry Breast density RLQ abdominal pain Hypothyroidism Vitamin D deficiency Hypercholesterolemia Type 2 diabetes mellitus with hyperglycemia Hip osteoarthritis Anxiety and depression Gastroparesis GERD (gastroesophageal reflux disease) Vitamin D deficiency Osteoporosis Surgical History Hx of foot surgery Hx of breast biopsy Hx of colonoscopy Hx of cholecystectomy Hx of tonsillectomy Hx of tubal ligation Hx of esophagogastroduodenoscopy Family History Father Alcoholism Mother Dementia Diabetes Heart disease Myocardial infarct Sister Breast cancer Brother Lung cancer Myocardial infarct Maternal Uncle Colon cancer Other Mental health disorder Substance use disorder Social History Housing: Apartment Alcohol intake: never Patient Tobacco Use Status: Never used Tobacco Tobacco use type: Cigarette e-Cigarette/Vaping Use: Never Used Second Hand Smoke Exposure: No service: No Current occupational status: employed Cognitive needs: No Hearing needs: No Vision needs: Yes (Glasses) Review of Systems Const Denies fatigue, Denies fever(s), Denies night sweats, Denies poor appetite and Denies weight loss Eyes Details: glasses Reports requires corrective lenses ENT Reports Normal hearing present, Denies dental pain, Denies dysphagia, Denies hearing loss, Denies mouth pain, Denies odynophagia, Denies throat swelling, Denies tongue swelling and Reports other (Dentition adequate) Card Reports no additional complaints Resp Reports no additional complaints GI Details: Denies abdominal pain, Denies melena, Reports bloating, Denies hematochezia, Reports constipation, Denies GI cramping, Denies dysphagia, Denies excessive flatus, Denies early satiety, Reports heartburn, Denies diarrhea, Denies nausea, Denies odynophagia, Denies vomiting and Denies hematemesis Skin/Breast Denies pruritus, Denies lesions, Denies rash and Denies jaundice Neuro Reports Normal hearing present and Denies Abnormal speech present Endo Denies fatigue Aller/Immun Denies throat swelling and Denies tongue swelling Physical Exam Vital Signs: Last Vital Signs Pulse 69 03/17/25 12:21 BP 139/77 03/17/25 12:21 BMI result Body Mass Index 33.4 Const General: cooperative, no acute distress, well developed and well groomed Nutritional Appearance: well nourished and obese Orientation/consciousness: oriented to person, oriented to place and oriented to time Limitations: language barrier HEENT Head: Yes normocephalic and Yes atraumatic Eyes General: appearance normal, both eyes and all related structures Pupils: Equal, round and reactive pupils present Neck Neck: Yes normal visual inspection and Yes no lymphadenopathy Thyroid: Thyroid normal Resp Effort & Inspection: normal respiratory effort and able to speak in complete sentences Auscultation: clear to auscultation bilaterally Cardio Rate: regular rate Rhythm: regular rhythm Heart sounds: Normal, physiologic split S2 sound present Peripheral pulses: radial pulses present and posterior tibial pulses present GI Inspection: No distended, No Abdominal panniculus present and Yes obesity Palpation (GI): Soft to palpation, nontender, no guarding, not rigid and No hepatosplenomegaly present Percussion: Yes normal to percussion Auscultation: normal bowel sounds Rectal Exam - Female: deferred Skin General skin exam: no rashes or lesions noted, turgor normal, skin not dry, no jaundice, No spider nevi and no striae Rashes: no rashes Nails: normal Neuro General: oriented to person, oriented to place and oriented to time Cranial nerves: Yes Equal, round and reactive pupils present and Yes Normal hearing present Speech: No Abnormal speech present Extrem General: Yes normal to inspection, No clubbing, No cyanosis and No edema Psych Appearance: grossly normal and well kempt Mental Status: mental status grossly normal Speech and movement: Normal speech and movement present Affect: normal affect Attitude: cooperative Thought process: Normal thought process present and not confabulating Thought content: Normal thought content present Insight: Good insight present (Psych) Judgement: Good judgement present (Psych) Assessment & Plan Assessment & Plan (1) Chronic idiopathic constipation: Code(s): K59.04 - Chronic idiopathic constipation Category: Medical (2) GERD (gastroesophageal reflux disease): Comment: Hiatal hernia, gastritis gastroparesis Code(s): K21.9 - Gastro-esophageal reflux disease without esophagitis Category: Medical Qualifiers: Esophagitis presence: without esophagitis Qualified Code(s): K21.9 - Gastro-esophageal reflux disease without esophagitis Plan [place]onian #V Live She is currently on pantoprazole, simehticone and LInzess, just reduced to 145mcg from 290. With the Linzess 145 micro g she is able to take it daily and she says this has resolved her stooling problems. She is not happy with her GI regimen. Return office visit in 6 months Coding Level of Care Code Est Pt Level 3 (61475) Diagnoses Chronic idiopathic constipation K59.04 Gastroesophageal reflux disease without esophagitis K21.9 Esophagitis presence: without esophagitis
[2025-03-17 12:21] VITALS: BP 139/77; PULSE 69; BMI 33.4
--- OUTSIDE RECORDS SUMMARY | 2025-03-17 12:30 | XMS_ITS | Patient Health Record ---
Author Organization [facility] Address [address] [place] [address] Care Team Providers Care Press Bucker Name Role Phone Po Lamont DEE Primary Care Provider Tyler Rodriguez [phone] Allergies Allergen (clinical drug ingredient) Drug/Non Drug Allergy documented on EMR Reaction Allergy Type Onset Date Status Penicillin Unknown Drug Allergy Active metoclopramide Reglan Unknown Drug Allergy Ac tive EpiPen Unknown Drug Allergy Inactiv e Reason For Referral No Information Medications Medication SIG (Take, Route, Frequency, Duration) Notes Start Date End Date Status Calcium Active 1 tablet Orally Thre e times a day prn abdominal pain/bloating/cramping for 30 day(s) 04/08/2012 Active LORazepam 0.5mg Acti ve Citalopram Hydrobromide 30mg Active diphenhydrAMINE HCl Active Protonix 40 MG 1 tablet Orally QAM-take 30-60 minutes before breakfast 08/01/2011 Active Dicyclomine HCl 10 MG 1-2capsules Orally Q 6 hours prn abdominal cramps or pain for 30 day(s) 09/18/2012 Active Ambien 5mg Active Pantoprazole Sodium 40 MG 1 tab po QD for 30 Active Senokot Active EpiPen prn Active Problems Problem Type SNOMED Code ICD Code Onset Dates Problem Status W/U Status Risk Notes Problem Esophageal reflux (761260101) Esophageal reflux (530.81) Active confirmed Problem Gastroparesis (912573394) Gastroparesis (536.3) Active confirmed Problem Unspecified constipation (564.00) Active confirmed Problem Irritable bowel syndrome (25562858) Irritable bowel syndrome (564.1) Active confirmed Problem Heartburn (23262838) Heartburn (787.1) Active confirmed Problem Epigastric pain (60632395) Abdominal pain, epigastric (789.06) Active confirmed Problem GERD (gastroesophageal reflux disease) (530.81) Active confirmed Plan Of Treatment Pending Test Test Name Order Date Gastric Emptying Scan 04/18/2011 Future Test Test Name Order Date UPPER GI ENDOSCOPY 04/18/2011 Insurance Providers Payer Name Payer Address Payer Phone Subscriber Number Group Number Insured Name Patient Relationship to Insured Coverage Start Date Coverage End Date [facility] [address] [facility] [place] [phone] [id number] [place] Self - patient is the insured Medical (General) History Medical History History ICD Code irritable bowel syndrome Denies NM,DM,CVA,Lung disease,renal dise ase GERD anxiety and depression Surgical History Surgery Date(Month/Year) CCY
--- OUTSIDE RECORDS SUMMARY | 2025-03-17 12:30 | XMS_ITS | Clinical Summary ---
Author Organization [facility] Address [address] [place] [address] Care Team Providers Care Color Weigher Name Role Phone Unavailable Primary Care Provider [...] season) 2024 Colorectal Cancer Screening: Colonoscopy 05/27/2024 HIV Screening 05/27/2024 Hepatitis C Screening 05/27/2024 Social Influencers of Health Screening 05/27/2024 Depression Screening 08/18/2024 Influenza Vaccine (#1) 2025 RSV Immunization Adult Patie nts (1 [...]
== END 2025-03-17 12:50 | disposition home or self-care (01) ==
LOC: HO.HGI 11:56
PROVIDERS: PCP Internal Medicine; Visit Provider Nurse Practitioner
DX: K59.04 Chronic idiopathic constipation (principal); K21.9 Gastro-esophageal reflux disease without esophagitis
CPT/HCPCS: 99213

== ENCOUNTER → 2025-03-17 11:55 | Outpatient (BNVA) | payer OTHER, SELFPAY | PROVIDERS: PCP Internal Medicine; Visit Provider Nurse Practitioner | DX: K59.04 Chronic idiopathic constipation (principal); K75.81 Nonalcoholic steatohepatitis (NASH); K21.9 Gastro-esophageal reflux disease without esophagitis | CPT/HCPCS: 99212 ==

== ENCOUNTER 2025-04-04 10:41 | Outpatient (REF) | payer OTHER, SELFPAY ==
--- NOTE | ~2025-04-04 | XR_ITS ---
EXAMINATION: XR KNEE, RIGHT CLINICAL INFORMATION: M70.50 - Other bursitis of knee, unspecified knee COMPARISON: None available. TECHNIQUE: AP and lateral views of the right knee. FINDINGS: No acute cortical disruption or malalignment. Mild joint space narrowing involving the medial compartment with sclerosis along the articular surface of the medial tibial plateau. Small marginal osteophyte formation in the medial femoral condyle and medial tibial plateau. Small exostosis at the quadriceps tendon insertion. No joint effusion, suprapatellar bursa. No gross chondrocalcinosis. XR/XR knee RT 2V IMPRESSION: Mild osteoarthritis, medial compartment. Electronically signed by: Jewel Reese MD 04/04/2025 11:45 AM EDT
== END 2025-04-04 10:42 | disposition home or self-care (01) ==
LOC: HO.XRAY 10:41
PROVIDERS: PCP Internal Medicine; Visit Provider Internal Medicine
DX: M70.51 Other bursitis of knee, right knee (principal); E11.65 Type 2 diabetes mellitus with hyperglycemia; E78.00 Pure hypercholesterolemia, unspecified; M81.0 Age-related osteoporosis without current pathological fracture; E03.9 Hypothyroidism, unspecified; K21.9 Gastro-esophageal reflux disease without esophagitis; K75.81 Nonalcoholic steatohepatitis (NASH); F41.1 Generalized anxiety disorder
CPT/HCPCS: 73560; 83036; 96127; 99212

== ENCOUNTER 2025-04-04 10:41 | Outpatient (AMB) | payer OTHER, SELFPAY ==
--- NOTE | 2025-04-04 10:44 | A.OFFPC_ITS ---
Vital Signs 04/04/25 10:45 Height 4 ft 5 in Weight 134 lb BMI 33.5 BP 132/80 Blood Pressure Location Lt brachial Position Sitting Pulse 68 Pulse Source Pulse Oximeter Pulse Oximetry (%) 96 Oxygen Delivery Method Room Air Intake Visit Reasons: DM Allergies raloxifene (Evista) Allergy (Intermediate, Verified 04/04/25 13:15) Unknown citalopram Allergy (Unknown, Verified 04/04/25 13:15) numbness legs,hands soy Allergy (Unknown, Verified 04/04/25 13:15) Hives pear Allergy (Verified 04/04/25 13:15) Unknown metformin Adverse Reaction (Intermediate, Verified 04/04/25 13:15) Diarrhea semaglutide (From Ozempic) Adverse Reaction (Intermediate, Verified 04/04/25 13:15) Nausea and Vomiting metoclopramide Adverse Reaction (Unknown, Verified 04/04/25 13:15) AGITATION Medication List - Last Reconciled 04/04/25 by Lamont Nino MD blood sugar diagnostic (FreeStyle Lite Strips) 1 strip miscellaneous TID blood-glucose meter (FreeStyle Lite Meter kit) As directed check the blood sugar 3 times a day cholecalciferol (vitamin D3) (Vitamin D3) 25 mcg PO DAILY cyanocobalamin (vitamin B-12) 1,000 mcg PO .once a week diclofenac sodium 1% (Voltaren Arthritis Pain) 2 grams topical QID dicyclomine 20 mg (2 x 10 mg) PO QID diphenhydramine HCl (Banophen) 25 mg PO TID PRN fluticasone propionate 50 mcg/actuation 1 spray intranasal DAILY PRN insulin degludec (Tresiba FlexTouch U-100 insulin) 12 units (0.12 mL) subcut BID 30 days lancets (FreeStyle Lancets) As directed check the BS TID linaclotide (Linzess) 145 mcg PO QAM loratadine 10 mg PO DAILY lorazepam 1/2 tab QD and 1 at bedtime; mirtazapine 45 mg PO BEDTIME pantoprazole 40 mg PO BID pen needle, diabetic (Advocate Pen Needle) As directed pen needle, diabetic (BD Fidelia 2nd Gen Pen Needle) As directed ramelteon 8 mg PO DAILY sertraline 100 mg PO DAILY simethicone 180 mg PO TID simvastatin 10 mg PO BEDTIME Tobacco use date assessed: 12/07/24 Fall risk assessment: No Falls in past year Last assessed Fall Risk: 04/04/25 Dental Screening Dental Screen Date: 12/07/24 HPI DM HPI Details donnie [id number] [place] interpret [facility] Medical History COVID-19 virus infection Medicare annual wellness visit, initial Encounter for annual routine gynecological examination Adult general medical exam Pre-op examination Foul smelling urine Snoring Allergic rhinitis Peripheral neuropathy Goiter Obesity (BMI 30-39.9) Breast asymmetry Breast density RLQ abdominal pain Hypothyroidism Vitamin D deficiency Hypercholesterolemia Type 2 diabetes mellitus with hyperglycemia Hip osteoarthritis Anxiety and depression Gastroparesis GERD (gastroesophageal reflux disease) Vitamin D deficiency Osteoporosis Surgical History Hx of foot surgery Hx of breast biopsy Hx of colonoscopy Hx of cholecystectomy Hx of tonsillectomy Hx of tubal ligation Hx of esophagogastroduodenoscopy Family History Father Alcoholism Mother Dementia Diabetes Heart disease Myocardial infarct Sister Breast cancer Brother Lung cancer Myocardial infarct Maternal Uncle Colon cancer Other Mental health disorder Substance use disorder Social History Housing: Apartment Alcohol intake: never Patient Tobacco Use Status: Never used Tobacco Tobacco use type: Cigarette e-Cigarette/Vaping Use: Never Used Second Hand Smoke Exposure: No service: No Current occupational status: employed Cognitive needs: No Hearing needs: No Vision needs: Yes (Glasses) Questionnaire PHQ-9 Over the last 2 weeks, how often have you been bothered by any of the following problems? 1. Little interest or pleasure in doing things: not at all 2. Feeling down, depressed, or hopeless: several days 3. Trouble falling or staying asleep, or sleeping too much: not at all 4. Feeling tired or having little energy: not at all 5. Poor appetite or overeating: several days 6. Feeling bad about yourself - or that you are a failure or have let yourself or your family down: several days 7. Trouble concentrating on things, such as reading the newspaper or watching television: not at all 8. Moving or speaking so slowly that other people could have noticed. Or the opposite - being so fidgety or restless that you have been moving around a lot more than usual: not at all 9. Thoughts that you would be better off or of hurting yourself in some way: not at all Total score: 3 Depression Screening Interpretation: Positive Depression Screening Done: Yes Source: Developed by Drs. Tyler Lilly, Kandice Villalobos, Gerber Freeman and colleagues, with an educational clarissa from [employer]. Thrive Questionnaire Date Thrive assessed: 03/28/25 I am a: Patient What is your living situation today?: I do not have a steady places to live I am temporarily staying with others Within the past 12 months, did the food you bought not last and you didn't have the money to get more?: Never true Within the past 12 months, did you worry whether your food would run out before you got money to buy more?: Never true Do you have trouble paying for medicines?: No Do you have trouble getting transportation to medical appointments?: No Do you have trouble paying your heating and electricity bill?: No Do you have trouble taking care of your child, family member or friend?: No Do you have trouble with day-to-day activities such as bathing, preparing meals, shopping, managing finances, etc.?: No Are you currently unemployed and looking for a job?: I choose not to answer this question Are you interested in more education?: No Please select the resources that you would like help with: Housing/Group Home Currently or been in a relationship where the following occur: I choose not to answer THRIVE Score: 1 AUDIT C Alcohol Use Questionnaire (AUDIT-C) 1. How often do you have a drink containing alcohol?: Never 3. How often do you have six or more drinks on one occasion?: Never Total Score: 0 SEFERINO-7 AMB Questionnaire SEFERINO-7 Date SEFERINO - 7 assessed: 04/04/25 Feeling nervous, anxious, or on edge: 2 = More than half the days Not being able to stop or control worryin = More than half the days Worrying too much about different things: 2 = More than half the days Trouble relaxin = Several days Being so restless that it is hard to sit still: 2 = More than half the days Becoming easily annoyed or irritable: 2 = More than half the days Feeling afraid as if something awful might happen: 2 = More than half the days Total SEFERINO-7 score (0-4 normal; 5-9 mild; 10-14 moderate; 15-21 severe): 13 Source: Developed by Drs. Tyler Lilly, Kandice Villalobos, Gerber Freeman and colleagues, with an educational clarissa from [employer]. SEFERINO-7 Assessment Billing SEFERINO-7 Assessment Tool: SEFERINO-7 Assessment 80481 Physical exam (Primary Care) Vital Signs: Last Vital Signs Pulse 68 04/04/25 10:45 BP 132/80 04/04/25 10:45 Pulse Ox 96 04/04/25 10:45 Oxygen Delivery Method Room Air 04/04/25 10:45 BMI result Body Mass Index 33.5 Tobacco/Smoking Status: Tobacco use Status Tobacco use date assessed 12/07/24 04/04/25 10:46 Patient Tobacco Use Status Never used Tobacco 04/04/25 10:46 Tobacco use type Cigarette 04/04/25 10:46 e-Cigarette/Vaping Use Never Used 04/04/25 10:46 PHQ-9: PHQ-9 Score PHQ-9: Total score 3 04/04/25 11:06 Depression Screening Interpretation: Positive Thrive Assessment: Date of Thrive Assessment Date Thrive assessed 03/28/25 04/04/25 10:46 Currently or been in a relationship where the following occur: I choose not to answer Const General: alert; No acute distress Eyes Conjunctivae: conjunctivae normal Resp Auscultation: clear to auscultation bilaterally Cardio Rate: regular rate Rhythm: regular rhythm GI Inspection: Yes normal to inspection Extrem General: Yes normal to inspection and No edema Results AMB Hemoglobin A1c AMB Hemoglobin A1c 5.7 % Last Edit by Eileen Lawler CMA on 04/04/25 11 :06 Results Reviewed Results Reviewed: Laboratory Last Values Hgb A1c (Clinic) 5.7 % (4.0-6.0) 04/04/25 10:46 Coding Level of Care Code Est Pt Level 4 (56423) Complex EM visit Add On G2211 Diagnoses Type 2 diabetes mellitus with hyperglycemia, without long-term current use of insulin E11.65 Diabetes mellitus watermelon harvesting 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 Will 10/2022 Code(s): E11.65 - Type 2 diabetes mellitus with hyperglycemia Category: Medical Qualifiers: Diabetes mellitus watermelon harvesting supervisor insulin use: without watermelon harvesting supervisor use Qualified Code(s): E11.65 - Type 2 diabetes mellitus with hyperglycemia Plan: Decrease the amount of carbohydrate intake, pasta, bread, rice and potatoes are all sugar and that is aside from all the sweet stuff, remember that fruits are good but they are Sweet also. Hemoglobin A1c goal of less than 6.5. Patient on Tresiba only discussed about hypoglycemia and precaution (2) Hypercholesterolemia: Code(s): E78.00 - Pure hypercholesterolemia, unspecified Category: Medical Plan: Avoid fried foods, chicken skin, eggs, butter margarine, pastries and meat. Be it pork or beef they have a lot of cholesterol LDL goal of less than 100 and triglyceride of less than 150 on simvastatin 10 mg once a day Korin last blood work (3) Hypothyroidism: Code(s): E03.9 - Hypothyroidism, unspecified Category: Medical Plan: Continue with thyroid medication (4) GERD (gastroesophageal reflux disease): Comment: Hiatal hernia, gastritis gastroparesis Code(s): K21.9 - Gastro-esophageal reflux disease without esophagitis Category: Medical Qualifiers: Esophagitis presence: without esophagitis Qualified Code(s): K21.9 - Gastro-esophageal reflux disease without esophagitis Plan: Avoid the foods that causes that usually spicy foods, tomato products, juices, coffee, soda and foods that your sensitive to. After eating do not lie down, allow 3-4 hours before in lie down. And keep the head of bed above 30 degrees to avoid the acid from going up. (5) SWAN (nonalcoholic steatohepatitis): Comment: 02/2020 NORMAL RENAL PANEL EXCEPT FOR AN elevated nonfasting glucose of 207, AST/ALT 27/36 with remainder normal, hemoglobin A1c is 6.2, vitamin B12 folate are normal, CBC shows borderline anemia normocytic, normochromic, intrinsic factor antibodies are negative, parietal cell L it antibodies are not elevated, IgG panel is completely normal, mitochondrial antibodies are negative, smooth muscle antibodies are negative, CURRENT Laboratory Tests 11/22/24 09:03 WBC 6.0 Hgb 12.2 Hct 35.7 L MCV 86.4 MCH 29.5 Plt Count 317 Estimated GFR 57 Total Bilirubin 0.3 AST 24 ALT 13 Alkaline Phosphatase 92 TSH 2.68 ULTRASOUND OF THE ABDOMEN 08/10/2024 FINDINGS: PANCREAS: Limited visualization of pancreatic tail and head. Imaged portion of pancreatic body is unremarkable. ABDOMINAL AORTA: The proximal, mid, and distal segments are normal in caliber. INFERIOR VENA CAVA: Visualized portions are normal. LIVER: Diffusely heterogeneous hepatic echotexture is suggestive of hepatocellular disease and severely limits visualization. Correlation with liver function tests and clinical exam recommended to determine further management. GALLBLADDER: The gallbladder is surgically absent. COMMON BILE DUCT: Normal in caliber measuring 0.4 cm in diameter. RIGHT KIDNEY: Mild pelvocaliectasis. No obstructing renal calculi. Limited visualization. The kidney measures 9.0 cm in maximum dimension. LEFT KIDNEY: Mild pelvocaliectasis. No obstructing renal calculi. Limited visualization. The kidney measures 9.6 cm in maximum dimension. SPLEEN: The spleen measures 7.1 cm in maximum dimension. FREE FLUID: None. US/US abdomen complete IMPRESSION: 1. Diffusely heterogeneous hepatic echotexture is suggestive of hepatocellular disease and severely limits visualization. Correlation with liver function tests and clinical exam recommended to determine further management. 2. The gallbladder is surgically absent. 3. Mild bilateral pelvocaliectasis. No obstructing renal calculi. Code(s): K75.81 - Nonalcoholic steatohepatitis (SWAN) Category: Medical Plan: Low-fat diet and exercise (6) Generalized anxiety disorder: Comment: [facility] every other week Elijah Code(s): F41.1 - Generalized anxiety disorder Category: Medical Plan: Continue with counseling and therapy. On sertraline (7) Allergy desensitization therapy: Code(s): Z51.6 - Encounter for desensitization to allergens Category: Medical Plan: Patient follows up with Allergy and immunology (8) Pes anserine bursitis: Comment: right Code(s): M70.50 - Other bursitis of knee, unspecified knee Category: Medical Plan History of Present Illness The patient is a 65-year-old female presenting for a follow-up visit. The patient has a history of diabetes mellitus, managed with insulin therapy, specifically 12 units twice a day. She previously used Ozempic but discontinued it due to adverse effects such as stomach pain, vomiting, and diarrhea. Her hemoglobin A1c was 5.3 as of November 22, indicating good glycemic control. The patient also has a history of obesity, with a recent weight gain of 9 pounds, possibly related to the discontinuation of Ozempic. She is currently on a low-fat diet and exercise regimen to manage her weight and GERD. The patient has been diagnosed with hepatic steatosis and hypercholesterolemia, with an LDL level of 48, which is below the target of less than 100. She is on simvastatin 10 mg daily for cholesterol management. The patient has a history of osteoporosis, with the last bone density scan conducted in December 2023. She also has a history of generalized anxiety disorder a nd is currently on sertraline for management. The patient has a history of hypothyroidism, with a recent adjustment in medication dosage to 145 mcg. She also has a history of tubular adenoma of the c olon, with the last colonoscopy performed in December 2023. The patient has been experiencing chronic idiopathic constipation and has been under the care of a crew boat operator since March 17. Her bowel movements have been reported as good recently. The patient has cataracts, which are currently mild and not significantly affecting her vision. She is up to date with ophthalmology visits, with the last visit on February 11, 2025. The patient has a history of rhinitis and angioedema, managed with Claritin, Flonase, and ketotifen ophthalmic solution. She is undergoing desensitization therapy with oral challenges. The patient reports pain and swelling in the right knee, diagnosed as anserine bursitis, which has been ongoing for about two months. She uses a knee brace but experiences increased pain with it, and she is considering physical therapy. Health Maintenance - Mammogram is up to date - Ophthalmology visit up to date as of February 11, 2025 - Last colonoscopy in December 2023 - Last bone density scan in December 2023 Social History Review of Systems - Endocrine: Reports weight gain of 9 pounds - Gastrointestinal: Reports good bowel movements - Musculoskeletal: Reports pain and swelling in the right knee - Ophthalmologic: Reports mild cataracts - Allergy/Immunology: Reports rhinitis and angioedema Physical Exam Results - Labs: Hemoglobin A1c 5.3 as of November 22 - Labs: LDL 48 Plan The patient will continue with her current insulin regimen of 12 units twice a day, with a goal to maintain hemoglobin A1c below 6.5. Due to adverse effects from Ozempic, a switch to Mounjaro has been discussed, which will be administered once a week. The patient is advised to monitor her blood sugar levels closely, especially for hypoglycemia, and to adjust insulin dosage if levels fall below 100. For obesity management, the patient is encouraged to adhere to a low-fat diet and regular exercise. Her hypercholesterolemia is managed with simvastatin 10 mg daily, aiming for an LDL goal of less than 100. The patient will continue her thyroid medication at the adjusted dose of 145 mcg. For her right knee pain diagnosed as anserine bursitis, the patient is advised to use Voltaren gel for pain relief and consider physical therapy. An x-ray has been ordered to further evaluate the knee condition. Patient was informed and verbally consented to the use of an ambient scribe for clinic note documentation during this visit. Discussion Notes I discussed with the patient the management of her diabetes, emphasizing the importance of maintaining her hemoglobin A1c below 6.5 and monitoring for hypoglycemia. We reviewed the adverse effects she experienced with Ozempic and agreed to try Mounjaro as an alternative, with instructions to monitor her blood sugar closely. For her knee pain, I recommended Voltaren gel and physical therapy, and I ordered an x-ray to assess the condition further. Patient Instructions - Continue insulin regimen as prescribed and monitor blood sugar levels closely. - Start Mounjaro once a week and report any side effects. - Follow a low-fat diet and engage in regular exercise. - Use Voltaren gel for knee pain and consider physical therapy. - Schedule and complete the x-ray for the knee. Orders: Orders XR knee RT 2V Today M70.50 - Other bursitis of knee, unspecified knee AMB Hemoglobin A1c Today Z13.9 - Encounter for screening, unspecified PT Evaluation and Treatment Today M70.50 - Other bursitis of knee, unspecified knee Medications: New tirzepatide (Mounjaro) for 4 weeks 2.5 mg (0.5 mL) subcut QWEEK 2 mL 2RF E11.65 - Type 2 diabetes mellitus with hyperglycemia Changed From insulin degludec (Tresiba FlexTouch U-100 insulin) 12 units (0.12 mL) subcut DAILY 30 days 3.6 mL 3RF E11.65 - Type 2 diabetes mellitus with hyperglycemia To insulin degludec (Tresiba FlexTouch U-100 insulin) 12 units (0.12 mL) subcut BID 7.2 mL 3RF 30 days E11.65 - Type 2 diabetes mellitus with hyperglycemia Refilled diclofenac sodium 1% (Voltaren Arthritis Pain) apply to single elbow, wrist or hand; for hand includes palm/fingers/back of hand 2 grams topical QID 100 grams 0RF M70.50 - Other bursitis of knee, unspecified knee
[2025-04-04 10:45] VITALS: BP 132/80; PULSE 68; O2SAT 96; BMI 33.5
--- OUTSIDE RECORDS SUMMARY | 2025-04-04 11:42 | XMS_ITS | Patient Health Record ---
Author Organization [facility] Address [address] [place] [address] Care Team Providers Care Glaze Wiper Name Role Phone Po Lamont DEE Primary Care Provider Tyler Rodriguez [phone] Allergies Allergen (clinical drug ingredient) Drug/Non Drug [...] W/U Status Risk Notes Problem Esophageal reflux (403943368) Esophageal reflux (530.81) Active confirmed Problem Gastroparesis (473273578) Gastroparesis (536.3) Active confirmed Problem Constipation (78249821) Unspecified constipation (564.00) Active confirmed Problem Irritable bowel syndrome (62111028) Irritable bowel syndrome (564.1) Active confirmed Problem Heartburn (49798478) Heartburn (787.1) Active confirmed Problem Epigastric pain (50911457) Abdominal pain, epigastric (789.06) Active confirmed Problem Gastroesophageal reflux disease (702129015) GERD (gastroesophagea l reflux disease) (530.81) Active confirmed Plan Of Treatment Pending Test Test Name Order Date Gastric Emptying Scan 04/18/2011 Future Test Test Name Order Date UPPER GI ENDOSCOPY 04/18/2011 Insurance Providers Payer Name Payer Address Payer Phone Subscriber Number Group Number Insured Name Patient Relationship to Insured Coverage Start Date Coverage End Date [employer] [address] [facility] [place] [phone] [id number] [place] Self - patient is the insured Medical (General) History Medical History History ICD Code irritable bowel syndrome Denies [place],DM,CVA,Lung disease,renal dise ase GERD anxiety and depression Surgical History Surgery Date(Month/Year) CCY
--- OUTSIDE RECORDS SUMMARY | 2025-04-04 11:42 | XMS_ITS | Clinical Summary ---
Author Organization [facility] Address [address] [place] [address] Care Team Providers Care Promotional Marketing Agent Name Role Phone Unavailable Primary Care Provider [...]
== END 2025-04-04 11:14 | disposition home or self-care (01) ==
LOC: HO.HMCH 10:42
PROVIDERS: PCP Internal Medicine; Visit Provider Internal Medicine
DX: E11.65 Type 2 diabetes mellitus with hyperglycemia (principal); E78.00 Pure hypercholesterolemia, unspecified; E03.9 Hypothyroidism, unspecified; K21.9 Gastro-esophageal reflux disease without esophagitis; K75.81 Nonalcoholic steatohepatitis (NASH); F41.1 Generalized anxiety disorder; Z51.6 Encounter for desensitization to allergens; M70.50 Other bursitis of knee, unspecified knee; Z13.9 Encounter for screening, unspecified

== ENCOUNTER → 2025-04-04 11:28 | Outpatient (BNV) | payer OTHER, SELFPAY | PROVIDERS: PCP Internal Medicine; Visit Provider Radiology Diagnostic Radiology | DX: M17.11 Unilateral primary osteoarthritis, right knee (principal) | CPT/HCPCS: 73560 ==

== ENCOUNTER 2025-04-04 11:45 | Outpatient (AMB) | payer OTHER, SELFPAY ==
[2025-04-04 13:10] VITALS: BP 144/82; PULSE 66; O2SAT 96; BMI 32.7
--- NOTE | 2025-04-04 13:10 | MHC.OFFVIS ---
Vital Signs 04/04/25 13:10 Height 4 ft 5.84 in Weight 134 lb 14.766 oz BMI 32.7 BP 144/82 H Blood Pressure Location Rt brachial Position Sitting Pulse 66 Pulse Source Pulse Oximeter Pulse Oximetry (%) 96 Oxygen Delivery Method Room Air Intake Visit Reasons: Osteoporosis Intake Note: Patient present today for Osteoporosis follow up Outreach Representative Required: Yes Outreach Representative Language: Product Safety Coordinator Services: Outreach Representative Present Outreach Representative Name: [facility]- Ivonne Accompanied by: Self / Same As Patient Allergies raloxifene (Evista) Allergy (Intermediate, Verified 04/04/25 13:15) Unknown citalopram Allergy (Unknown, Verified 04/04/25 13:15) numbness legs,hands soy Allergy (Unknown, Verified 04/04/25 13:15) Hives pear Allergy (Verified 04/04/25 13:15) Unknown metformin Adverse Reaction (Intermediate, Verified 04/04/25 13:15) Diarrhea semaglutide (From Ozempic) Adverse Reaction (Intermediate, Verified 04/04/25 13:15) Nausea and Vomiting metoclopramide Adverse Reaction (Unknown, Verified 04/04/25 13:15) AGITATION Medication List - Last Reconciled 04/04/25 by Tyler Baum MD blood sugar diagnostic (FreeStyle Lite Strips) 1 strip miscellaneous TID blood-glucose meter (FreeStyle Lite Meter kit) As directed check the blood sugar 3 times a day cholecalciferol (vitamin D3) (Vitamin D3) 25 mcg PO DAILY cyanocobalamin (vitamin B-12) 1,000 mcg PO .once a week diclofenac sodium 1% (Voltaren Arthritis Pain) 2 grams topical QID dicyclomine 20 mg (2 x 10 mg) PO QID diphenhydramine HCl (Banophen) 25 mg PO TID PRN fluticasone propionate 50 mcg/actuation 1 spray intranasal DAILY PRN insulin degludec (Tresiba FlexTouch U-100 insulin) 12 units (0.12 mL) subcut BID 30 days lancets (FreeStyle Lancets) As directed check the BS TID linaclotide (Linzess) 145 mcg PO QAM loratadine 10 mg PO DAILY lorazepam 1/2 tab QD and 1 at bedtime; mirtazapine 45 mg PO BEDTIME pantoprazole 40 mg PO BID pen needle, diabetic (Advocate Pen Needle) As directed pen needle, diabetic (BD Fidelia 2nd Gen Pen Needle) As directed ramelteon 8 mg PO DAILY sertraline 100 mg PO DAILY simethicone 180 mg PO TID simvastatin 10 mg PO BEDTIME tirzepatide (Mounjaro) 2.5 mg (0.5 mL) subcut QWEEK HPI Comments Details: 65 YO Female with PMHx Osteoporosis who is seen in F/U for the same. First diagnosed many years ago. Received treatment in the past with Evista for approximately 3 months, but developed a DVT so this was stopped. She then received IV Reclast for 2 doses, and switched to Prolia. It is unclear exactly when her doses of Prolia were, but she apparently received 5 doses thus far, beginning 2018, and her most recent 06/18/2021. She was then switched to PO Fosamax as of 12/2021 and remains on this weekly. She is tolerating this well. No history of pathologic fracture or ONJ. Has 1 servings of dietary calcium per day in the form of milk. Takes Calcium supplement 500 mg once daily. Takes 1000 IU of Vitamin D daily. Uses PPI daily. Had a prior DVT and did use a short course of anticoagulant, though she does not recall the name. Denies ever using an antiepileptic or glucocorticoid medication. Does weight bearing exercise 7 days per week in the form of walking. Fracture history: Denies Height loss: Reports losing height, but unable to quantify. 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 Menses were always regular. G3G3. She did not breastfeed. Menopause was age 56. She did not use HRT after. Denies history of Kidney stones: Denies family history of Osteoporosis or hip fracture. Was seeing the dentist regularly. Has not in over 6 months. No planned upcoming dental work or extractions. DXA dated 12/06/2021: FINDINGS: AP SPINE L1-L4: Current: BMD 0.917 g/cm2, Z-score -0.9, T-score -2.2, osteopenia, 4.8% decrease from previous, 3.3% increase from baseline (<5% change is not significant). Prior: BMD 0.963 g/cm2. Baseline: BMD 0.888 g/cm2. LEFT FEMUR, NECK: Current: BMD 0.904 g/cm2, Z-score 0.3, T-score -1.0, normal. Prior: BMD 0.868 g/cm2. Baseline: BMD 0.904 g/cm2. LEFT FEMUR, TOTAL: Current: BMD 1.025 g/cm2, Z-score 1.1, T-score 0.1, normal, 1.2% decrease from previous, 0.4% decrease from baseline (<5% change is not significant). Prior: BMD 1.037 g/cm2. Baseline: BMD 1.029 g/cm2. Thyroid US: 06/24/2022 Right Thyroid Lobe: 4.1 x 1.2 x 1.4 cm, volume 3.6 mL. Parenchyma: The gland echotexture is homogeneous. Thyroid vascularity is normal. Left Thyroid Lobe: 3.3 x 1.2 x 1.1 cm, volume 2.3 mL. Parenchyma: The gland echotexture is homogeneous. Thyroid vascularity is normal. Isthmus: 0.3 cm in maximum AP dimension. Estimated total number of nodules greater than or equal to 1 cm: 0. Therapeutic Assistant nodules are described as follows: 1. Location: Right lower pole. ?? ? Size: 0.3 x 0.2 x 0.4 cm, volume 0.01 mL. ?? ? Nodule characteristics: ?? ? Composition: Solid/almost completely solid (2). ?? ? Echogenicity: Isoechoic (1). ?? ? Shape: Not taller than wide (0). ?? ? Margins: Ill-defined (0). ?? ? Echogenic Foci: None ?? ? ACR TI-RADS total points: 3 ?? ? ACR TI-RADS category: 3 2. Location: Left medial/lower pole. ?? ? Size: 0.8 x 0.4 x 0.4 cm, volume 0.1 mL. ?? ? Nodule characteristics: ?? ? Composition: Mixed cystic and solid (1). ?? ? Echogenicity: Isoechoic (1). ?? ? Shape: Not taller than wide (0). ?? ? Margins: Ill-defined (0). ?? ? Echogenic Foci: Comet-tail artifacts (0). ?? ? ACR TI-RADS total points: 2 ?? ? ACR TI-RADS category: 2 NODES: No lymphadenopathy is seen in the tissue surrounding the thyroid gland. Labs: Laboratory Tests 12/06/22 12/06/22 12/06/22 08:40 08:42 08:42 Creatinine 1.19 Estimated GFR 46 Albumin 4.2 N-Telopeptide X-linked 9 25-OH Vitamin D Total 54.8 TSH 2.98 PTH Intact 14 L Calcium (PTH Intact) 9.7 currently on drug holiday taking calcium and vitamin-D. Urine NTX is suppressed. DEXA bone density has been stable . No fx since last visit PFSH Medical History COVID-19 virus infection Medicare annual wellness visit, initial Encounter for annual routine gynecological examination Adult general medical exam Pre-op examination Foul smelling urine Snoring Allergic rhinitis Peripheral neuropathy Goiter Obesity (BMI 30-39.9) Breast asymmetry Breast density RLQ abdominal pain Hypothyroidism Vitamin D deficiency Hypercholesterolemia Type 2 diabetes mellitus with hyperglycemia Hip osteoarthritis Anxiety and depression Gastroparesis GERD (gastroesophageal reflux disease) Vitamin D deficiency Osteoporosis Surgical History Hx of foot surgery Hx of breast biopsy Hx of colonoscopy Hx of cholecystectomy Hx of tonsillectomy Hx of tubal ligation Hx of esophagogastroduodenoscopy Family History Father Alcoholism Mother Dementia Diabetes Heart disease Myocardial infarct Sister Breast cancer Brother Lung cancer Myocardial infarct Maternal Uncle Colon cancer Other Mental health disorder Substance use disorder Social History Housing: Apartment Alcohol intake: never Patient Tobacco Use Status: Never used Tobacco Tobacco use type: Cigarette e-Cigarette/Vaping Use: Never Used Second Hand Smoke Exposure: No service: No Current occupational status: employed Cognitive needs: No Hearing needs: No Vision needs: Yes (Glasses) Physical Exam Vital Signs: Last Vital Signs Pulse 66 04/04/25 13:10 BP 144/82 H 04/04/25 13:10 Pulse Ox 96 04/04/25 13:10 Oxygen Delivery Method Room Air 04/04/25 13:10 BMI result Body Mass Index 32.7 Results AMB Hemoglobin A1c AMB Hemoglobin A1c 5.7 % Last Edit by Eileen Lawler CMA on 04/04/25 11:06 Assessment & Plan Assessment & Plan (1) Osteoporosis: Comment: November Code(s): M81.0 - Age-related osteoporosis without current pathological fracture Category: Medical Qualifiers: Osteoporosis type: age-related Presence of current pathological fracture: without current pathological fracture Qualified Code(s): M81.0 - Age-related osteoporosis without current pathological fracture Plan: This 63-year-old female with a history of osteoporosis initially treated Reclast then Prolia followed by oral bisphosphonate for over year. Recent DEXA shows the presence of low bone mass. Patient has not had a fracture. Currently on a drug holiday taking calcium and vitamin-D Plan is to continue the calcium and vitamin-D supplementation. Patient be returned to the care of her primary care provider who can we check a DEXA bone density in 2 years time. If bone density declines at the osteoporotic range, patient returned back to endocrinology for discussion of treatment options Coding Level of Care Code Est Pt Level 3 (88159) Diagnoses Age-related osteoporosis without current pathological fracture M81.0 Osteoporosis type: age-related Presence of current pathological fracture: without current pathological fracture
== END 2025-04-04 14:30 | disposition home or self-care (01) ==
LOC: HO.ENCR 11:46
PROVIDERS: PCP Internal Medicine; Visit Provider Internal Medicine Endocrinology, Diabetes & Metabolism
DX: M81.0 Age-related osteoporosis without current pathological fracture (principal)
CPT/HCPCS: 99213

== ENCOUNTER 2025-07-29 09:06 | Outpatient (REF) | payer OTHER, SELFPAY ==
--- NOTE | ~2025-07-29 | MM_ITS ---
EXAMINATION: MM SCREENING DIGITAL BREAST TOMOSYNTHESIS, BILATERAL CLINICAL INFORMATION: Screening. Asymptomatic. COMPARISON: Mammography: Comparison is made with available priors TECHNIQUE: Digital breast mammography with tomosynthesis is performed in both the craniocaudal and mediolateral oblique views along with computer-aided detection (CAD). FINDINGS: The breasts are heterogeneously dense, which may obscure small masses. Left marker clip. There are no significant masses, abnormal calcifications, or other abnormalities. MM/MM tomosynthesis screening BI IMPRESSION: No mammographic evidence of malignancy. ASSESSMENT: BI-RADS Category 2: Benign RECOMMENDATION: Routine annual mammography screening. 1 year F/U This examination should not preclude the clinical evaluation of a suspicious palpable abnormality. This patient's information was entered into a reminder system with a target due date for their next mammogram. Electronically signed by: Chandni Frank DO 08/02/2025 01:55 PM MIGDALIA
== END 2025-07-29 09:07 | disposition home or self-care (01) ==
LOC: HO.MAMMO 09:06
PROVIDERS: Visit Provider Internal Medicine
DX: Z12.31 Encounter for screening mammogram for malignant neoplasm of breast (principal)
CPT/HCPCS: 77063; 77067

== ENCOUNTER → 2025-07-29 09:30 | Outpatient (BNV) | payer OTHER, SELFPAY | PROVIDERS: Visit Provider Internal Medicine | DX: Z12.31 Encounter for screening mammogram for malignant neoplasm of breast (principal) | CPT/HCPCS: 77063; 77067 ==

== ENCOUNTER 2025-08-10 12:39 | Outpatient (AMB) | payer OTHER, SELFPAY ==
--- OUTSIDE RECORDS SUMMARY | 2025-08-10 12:41 | XMS_ITS | Clinical Summary ---
Author Organization [facility] Address [address] [place] [address] Care Team Providers Care Payment Analyst Name Role Phone Lamont Nino Primary Care Provider [phone] Allergies Active Allergy Reactions Criticality Noted Date Comments Metoclopramide Hcl Other (See Comments) 013 Penicillins Other (See Comments) 04/27/2013 Medications dicyclomine (BENTYL) 10 mg capsule TAKE 1 CAPSULE 3 times daily PRN 4 Active pantoprazole (PROTONIX) 40 MG tablet TAKE 1 TABLET BY MOUTH EVERY DAY 3 Active zolpidem (AMBIEN) 5 MG tablet TAKE 1 TABLET AT BEDTIME NEEDED FOR SLEEP. 3 Active BENADRYL 25 mg capsule TAKE 1 CAPSULE DAILY. 3 Active Text: Dietary Fiber Laxative POWD Take as directed 3 Active Text: Senna SYRP TAKE 1 TEASPOONFUL DAILY NEEDED. 4 Active Active Problems Problem Noted Date Diagnosed Date Gastroesophageal reflux disease 01/12/2014 Overview (10/17/2014): Esophageal Reflux Indigestion 01/12/2014 Overview (10/17/2014): Dyspepsia Social History Tobacco Use Types Packs/Day Years Used Date Smoking Tobacco: Never Comments Unknown Sex and Gender Information Value Date Recorded Sex Assigned at Not on file Legal Sex Female 4:15 PM EST Gender Identity Not on file Sexual Orientation Not on file Last Filed Vital Signs Vital Sign Reading Time Taken Comments Blood Pressure 135/86 04/27/2013 11:26 AM EDT Pulse 65 04/27/2013 11:26 AM EDT Temperature - - Respiratory Rate - - Oxygen Saturation - - Inhaled Oxygen Concentration - - Weight 51.3 kg (113 lb) 01/12/2014 12:05 PM EDT Height 137.2 cm (4' 6 ) 10/06/2013 11:12 AM EST Body Mass Index 27.25 10/06/2013 11:12 AM EST Plan of Treatment Not on file Care Teams Payment Analyst Relationship Specialty Start Date End Date Lamont Nino [address] [place] [id number] PCP - General 06/27/14
--- OUTSIDE RECORDS SUMMARY | 2025-08-10 12:41 | XMS_ITS | Clinical Summary ---
Author Organization [employer] [facility] ity Address [address] [place] [address] Care Team Providers Care Research And Development Engineer Name Role Phone Unavailable Primary Care [...] Last Done Comments Breast Cancer Screening 1960 Colorectal Cancer Screening: Colonoscopy 1960 DTaP,Tdap,and Td Vaccines (1 - Tdap) 01/28/1980 Cervical Cancer Screening: P ap Smear 1982 Pneumococcal Vaccine: 50+ Ye ars (1 of 1 - PCV) 2011 Zoster Vaccines (1 of 2) 2011 HIV Screening 05/27/2024 Hepatitis C Screening 05/27/2024 Social Influencers of Health Screening 05/27/2024 Depression Screening 08/18/2024 COVID-19 Vaccine (1 - 2024-2 6 season) 2025 Influenza Vaccine (#1) 2025 RSV Immunization Adult [...]
--- OUTSIDE RECORDS SUMMARY | 2025-08-10 12:41 | XMS_ITS | Patient Health Record ---
Author Organization [facility] Address [address] [place] [address] Care Team Providers Care Butcher Fish Name Role Phone Lamont Nino MD Primary Care Provider Tyler Rodriguez [phone] Allergies Allergen (clinical drug ingredient) Drug/Non Drug Allergy documented on EMR Reaction Allergy Type Onset Date Status EpiPen Unknown Drug Allergy Inactiv e metoclopramide Reglan Unknown Drug Allergy Ac tive Penicillin Unknown Drug Allergy Active Reason For Referral No Information Medications Medication SIG (Take, Route, Frequency, Duration) Notes Start Date End Date Status Calcium Active Tablet 1 tablet Orally Three times a day prn abdominal pain/bloating/cramping; Duration: 30 day(s) 04/08/2012 Active LORazepam 0.5mg Acti ve Citalopram Hydrobromide 30mg Active diphenhydrAMINE HCl Active Protonix 40 MG Tablet Delaye d Release 1 tablet Orally QAM-take 30-60 minutes before breakfast 08/01/2011 Active Dicyclomine HCl 10 MG Capsule 1-2capsule s Orally Q 6 hours prn abdominal cramps or pain; Duration: 30 day(s) 09/18/2012 Active Ambien 5mg Active Pantoprazole Sodium 40 MG Tablet Delayed Release 1 tab po QD; Duration: 30 Active Senokot Active EpiPen prn Active Social History Social History Additional Details Category Social Info Options Details Miscellaneous: Marital status: 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 amounts of alcohol She does not smoke nor use a ny sig. amounts of alcohol Problems Problem Type SNOMED Code ICD Code Onset Dates Problem Status W/U Status Risk Notes Problem Esophageal reflux (841566077) Esophageal reflux (530.81) Active confirmed Problem Gastroparesis (832025408) Gastroparesis (536.3) Active confirmed Problem Constipation (48384635) Unspecified constipation (564.00) Active confirmed Problem Irritable bowel syndrome (92746562) Irritable bowel syndrome (564.1) Active confirmed Problem Heartburn (76673096) Heartburn (787.1) Active confirmed Problem Epigastric pain (56569435) Abdominal pain, epigastric (789.06) Active confirmed Problem Gastroesophageal reflux disease (860550762) GERD (gastroesophagea l reflux disease) (530.81) Active confirmed Plan Of Treatment Pending Test Test Name Order Date Gastric Emptying Scan 04/18/2011 Future Test Test Name Order Date UPPER GI ENDOSCOPY 04/18/2011 Insurance Providers Payer Name Payer Address Payer Phone Subscriber Number Group Number Insured Name Patient Relationship to Insured Coverage Start Date Coverage End Date [facility] [id number] [facility] [place] [phone] [id number] LONG SEGURA Self - patient is the insured Medical (General) History Medical History History ICD Code irritable bowel syndrome Denies TX,DM,CVA,Lung disease,renal dise ase GERD anxiety and depression Surgical History Surgery Date(Month/Year) CCY
--- OUTSIDE RECORDS SUMMARY | 2025-08-10 12:41 | XMS_ITS | Encounter Summary ---
Author Organization [facility] Address [address] [place] [address] Care Team Providers Care Wheel Assembler Name Role Phone Lamont Nino Primary Care Provider [phone] Encounter Details Date Type Department Care Team (Latest Contact Info) Description 04/27/2013 Clinical Conversion Encounter [facility] Gastroenterology [facility] Gastroenterology [address] [address] Molly Tain MD [address] [place] [id number] Social History Tobacco Use Types Packs/Day Years Used Date Smoking Tobacco: Never Comments Unknown Sex and Gender Information Value Date Recorded Sex Assigned at Not on file Legal Sex Female 4:15 PM EST Gender Identity Not on file Sexual Orientation Not on file documented as of this encounter Progress Notes * Molly Tian MD - 10/04/2014 1:27 PM EST [id number] [place], [place]. GASTROENTEROLOGY 04/27/2013 Name: LONG CAMARENA LC#: [id number] : 1960 Visit ID: [id number] Second Visit ID: [id number] Long Camarena is a 53-year-old female who is seen today at the request of Dr. Salgado for further evaluation of dyspeptic symptoms. No records were available at the time of her visit. The patient is accompanied by her daughter Chelle who serves as a associate professor of biblical studies. A hospital associate professor of biblical studies was not available. The patient states that she has had dyspeptic symptoms for many years. She was followed by a physician at [facility]. She had a colonoscopy 2 years ago, which she reports was unremarkable. She saw a local physician recently and multiple tests were recommended, but she wanted to be seen at [facility] first. The patient reports longstanding difficulty with heartburn. She denies any solid or liquid dysphagia. Currently, for heartburn she is taking pantoprazole 40 mg daily. Another medication was prescribed, but she tells me it was over $200 a month. She has tried owfu-ysu-dyddydh antacids as well as ranitidine and famotidine, both of which were not helpful. She reports nausea and poor appetite, but her weight has been relatively stable. Her bowel movements are regular with the exception of some bouts of constipation. She also has been taking ibandronate for the past year. It is unclear whether her symptoms may be related to this. She also takes ibuprofen a few times a week for headaches. PAST MEDICAL HISTORY: Question hysterectomy. The patient is a poor historian. She also reports a history of a cholecystectomy, GERD, osteoporosis, anxiety. CURRENT MEDICATIONS: EpiPen, pantoprazole 40 mg daily, diphenhydramine 25 mg daily, zolpidem 5 mg daily, senna laxative as needed, fiber supplements and ibandronate monthly. ALLERGIES TO MEDICINES: METOCLOPRAMIDE AND PENICILLIN. SOCIAL HISTORY: She is . She has 3 children, ages 32, 29 and 27. She does not smoke or drink alcohol. FAMILY HISTORY: Significant for a sister of breast cancer. Three brothers, all of lung cancer. Her grandson who is 5 is being treated for neuroblastoma. REVIEW OF SYSTEMS: She reports weight loss of a few pounds. Her baseline weight is 114 pounds. Generally, she reports reflux, nausea, intermittent constipation, osteoporosis, anxiety, and panic attacks. Review of systems otherwise negative. PHYSICAL EXAMINATION: Weight 110 pounds, blood pressure 135/86, pulse of 65, regular. Pain score 5/10. In general, she appears nontoxic. Sclerae anicteric. Oropharynx is moist and pink. Neck is supple. Lungs are clear. Heart: Regular rate and rhythm. The abdomen is soft, nontender, nondistended. Bowel sounds active. There is a well-healed midline surgical scar. Extremities are without edema. Skin exam: Warm, dry, no rashes. Neurologically, alert and oriented. DATA FOR REVIEW: None. IMPRESSION: This 53-year-old woman with a longstanding history of abdominal discomfort, dyspepsia and reflux, presents for evaluation. No records are available. In terms of her reflux symptoms are fairly well controlled with pantoprazole 40 mg daily; however, she has dyspeptic symptoms and abdominal pain. For further evaluation, I have suggested an upper endoscopy and CT scan of the abdomen and pelvis to start as well as blood work. The patient and her daughter report that it is a hardship to travel to [facility] for these tests and they are available locally. Her daughter wishes to pursue further evaluation at [facility]. I wrote down the names of the tests, which I think would be helpful for her evaluation. The patient will pursue this through her primary care physician or local dehairing machine tender. The ibandronate also has a fairly high incidence of dyspepsia as a side effect. I asked her to call the physician prescribing this to consider as holding it temporarily as it might be worth a trial to see if her GI symptoms improve. The patient and her daughter were happy with the plan and she will return to [facility] as needed. Molly Tian MD [phone] KMR:clint J: [id number] / [id number] CC: Shanita Salgado MD, <Referring> Lamont Nino MD, <Second referring Dr Name> THIS DOCUMENT WAS ELECTRONICALLY AUTHENTICATED BY Molly Tian MD ON 04/29/2013 17:15:07 documented in this encounter Plan of Treatment Not on file documented as of this encounter Visit Diagnoses Not on filedocumented in this encounter Care Teams Wheel Assembler Relationship Specialty Start Date End Date Lamont Nino [address] [place] [address] [address] PCP - General 06/27/14 documented as of this encounter
--- NOTE | 2025-08-10 12:42 | MHC.PC.OV ---
Vital Signs 08/10/25 12:43 Height 4 ft 5.84 in Weight 140 lb BMI 34.0 BP 114/72 Blood Pressure Location Lt brachial Position Sitting Pulse 82 Pulse Source Pulse Oximeter Pulse Oximetry (%) 98 Oxygen Delivery Method Room Air Intake Visit Reasons: Follow Up Intake Note: Requesting refill on test strips. Allergies raloxifene (Evista) Allergy (Intermediate, Verified 08/10/25 12:43) Unknown citalopram Allergy (Unknown, Verified 08/10/25 12:43) numbness legs,hands soy Allergy (Unknown, Verified 08/10/25 12:43) Hives pear Allergy (Verified 08/10/25 12:43) Unknown metformin Adverse Reaction (Intermediate, Verified 08/10/25 12:43) Diarrhea semaglutide (From Ozempic) Adverse Reaction (Intermediate, Verified 08/10/25 12:43) Nausea and Vomiting tirzepatide (From Mounjaro) Adverse Reaction (Intermediate, Unverified 08/10/25 12:57) Nausea and Vomiting metoclopramide Adverse Reaction (Unknown, Verified 08/10/25 12:43) AGITATION Medication List - Last Reconciled 08/10/25 by Lamont Nino MD blood sugar diagnostic (FreeStyle Lite Strips) 1 strip miscellaneous TID blood-glucose meter (FreeStyle Lite Meter kit) As directed check the blood sugar 3 times a day cholecalciferol (vitamin D3) (Vitamin D3) 25 mcg PO DAILY cyanocobalamin (vitamin B-12) 1,000 mcg PO .once a week diclofenac sodium 1% (Voltaren Arthritis Pain) 2 grams topical QID dicyclomine 20 mg (2 x 10 mg) PO QID 90 days diphenhydramine HCl (Banophen) 25 mg PO TID PRN fluticasone propionate 50 mcg/actuation 1 spray intranasal DAILY PRN insulin degludec (Tresiba FlexTouch U-100 insulin) 12 units (0.12 mL) subcut BID 30 days lancets (FreeStyle Lancets) As directed check the BS TID linaclotide (Linzess) 145 mcg PO QAM loratadine 10 mg PO DAILY lorazepam 1/2 tab QD and 1 at bedtime; mirtazapine 45 mg PO BEDTIME pantoprazole 40 mg PO BID pen needle, diabetic (Advocate Pen Needle) As directed pen needle, diabetic As directed ramelteon 8 mg PO DAILY sertraline 100 mg PO DAILY simethicone 180 mg PO TID simvastatin 10 mg PO BEDTIME Tobacco use date assessed: 12/07/24 Fall risk assessment: No Falls in past year Last assessed Fall Risk: 08/10/25 Dental Screening Dental Screen Date: 12/07/24 HPI HPI Comments History of Present Illness Details History of Present Illness The patient is a 65-year-old obese female presenting for a follow-up visit for chronic condition management. She has a history of gastroesophageal reflux disease, hypercholesterolemia, hepatic steatosis, constipation, generalized anxiety disorder with depression, and a history of tubular adenoma of the colon with her last colonoscopy in December 2023. For her osteoporosis, the patient has been seen by endocrinology, and her last bone density scan was in December 2023. She continues to take calcium and vitamin D and has previously been treated with Reclast, Prolia, and oral bisphosphonates. Regarding her diabetes mellitus, her last hemoglobin A1c in March was 5.7%. She is currently on Tresiba but discontinued a once-weekly injection, Mounjaro, due to side effects including abdominal pain, diarrhea, and nausea. Her last comprehensive blood work was in November, which showed a normal blood count, normal electrolytes, good renal function, normal liver function tests, and an LDL cholesterol of 48. Her mammogram and yearly eye exams are up to date. Health Maintenance The patient is up to date with her mammogram, colonoscopy, and immunizations including flu, shingles, and pneumonia shots. She will continue with annual eye exams. Comprehensive blood work is planned for next year. Anticipatory guidance was provided regarding masking in crowded places during flu season. Social History - Activity: The patient was encouraged to remain physically active to help manage her blood sugar levels. - Diet: A low-fat diet was discussed for management of GERD. - The relationship between diet and blood sugar control was also reviewed. Results - Yudym-ij-pgtx hemoglobin A1c: 5.6% - Labs from November: normal blood count, normal electrolytes, good renal function, normal liver function tests, LDL cholesterol of 48. - Lab from March: Hemoglobin A1c was 5.7%. - Procedures: Colonoscopy in December 2023 revealed a tubular adenoma. Last bone density scan was in December 2023. [facility] Medical History COVID-19 virus infection Medicare annual wellness visit, initial Encounter for annual routine gynecological examination Adult general medical exam Pre-op examination Foul smelling urine Snoring Allergic rhinitis Peripheral neuropathy Goiter Obesity (BMI 30-39.9) Breast asymmetry Breast density RLQ abdominal pain Hypothyroidism Vitamin D deficiency Hypercholesterolemia Type 2 diabetes mellitus with hyperglycemia Hip osteoarthritis Anxiety and depression Gastroparesis GERD (gastroesophageal reflux disease) Vitamin D deficiency Osteoporosis Surgical History Hx of foot surgery Hx of breast biopsy Hx of colonoscopy Hx of cholecystectomy Hx of tonsillectomy Hx of tubal ligation Hx of esophagogastroduodenoscopy Family History Father Alcoholism Mother Dementia Diabetes Heart disease Myocardial infarct Sister Breast cancer Brother Lung cancer Myocardial infarct Maternal Uncle Colon cancer Other Mental health disorder Substance use disorder Social History Housing: Apartment Alcohol intake: never Patient Tobacco Use Status: Never used Tobacco Tobacco use type: Cigarette e-Cigarette/Vaping Use: Never Used Second Hand Smoke Exposure: No service: No Current occupational status: employed Cognitive needs: No Hearing needs: No Vision needs: Yes (Glasses) Questionnaire Thrive Questionnaire Date Thrive assessed: 03/28/25 I am a: Patient What is your living situation today?: I do not have a steady places to live I am temporarily staying with others Within the past 12 months, did the food you bought not last and you didn't have the money to get more?: Never true Within the past 12 months, did you worry whether your food would run out before you got money to buy more?: Never true Do you have trouble paying for medicines?: No Do you have trouble getting transportation to medical appointments?: No Do you have trouble paying your heating and electricity bill?: No Do you have trouble taking care of your child, family member or friend?: No Do you have trouble with day-to-day activities such as bathing, preparing meals, shopping, managing finances, etc.?: No Are you currently unemployed and looking for a job?: I choose not to answer this question Are you interested in more education?: No Currently or been in a relationship where the following occur: I choose not to answer THRIVE Score: 1 SEFERINO-7 AMB Questionnaire SEFERINO-7 Date SEFERINO - 7 assessed: 04/04/25 Source: Developed by Drs. Tyler Lilly, Kandice Villalobos, Gerber Freeman and colleagues, with an educational clarissa from [employer]. Review of Systems Narrative Review of Systems - Cardiovascular: Reports intermittent chest pain at night, which she questions may be related to anxiety. Denies exertional chest pain or palpitations. - Gastrointestinal: Reports good bowel movements and denies constipation. Reports a history of abdominal pain, diarrhea, and nausea with Mounjaro. - Genitourinary: Denies any problems with urination. - Musculoskeletal: Reports back pain when going up stairs. - Endocrine: Denies symptoms of significant hypoglycemia, although reports blood sugar sometimes goes below 100. - Extremities: Denies swelling. Physical exam (Primary Care) Vital Signs: Last Vital Signs Pulse 82 08/10/25 12:43 BP 114/72 08/10/25 12:43 Pulse Ox 98 08/10/25 12:43 Oxygen Delivery Method Room Air 08/10/25 12:43 BMI result Body Mass Index 34.0 Tobacco/Smoking Status: Tobacco use Status Tobacco use date assessed 12/07/24 08/10/25 12:44 Patient Tobacco Use Status Never used Tobacco 08/10/25 12:44 Tobacco use type Cigarette 08/10/25 12:44 e-Cigarette/Vaping Use Never Used 08/10/25 12:44 Thrive Assessment: Date of Thrive Assessment Date Thrive assessed 03/28/25 08/10/25 12:44 Currently or been in a relationship where the following occur: I choose not to answer Narrative Physical Exam - Vitals: Ijeit-yl-lbzo hemoglobin A1c reading was 5.6%. - Cardiovascular: Chest was auscultated. - Chest: No tenderness to palpation. Const General: alert; No acute distress Eyes Conjunctivae: conjunctivae normal Resp Auscultation: clear to auscultation bilaterally Cardio Rate: regular rate Rhythm: regular rhythm GI Inspection: Yes normal to inspection Extrem General: Yes normal to inspection and No edema Results AMB Hemoglobin A1c AMB Hemoglobin A1c 5.6 % Last Edit by Eileen Lawler CMA on 08/10/25 12:57 Results Reviewed Results Reviewed: Laboratory Last Values Hgb A1c (Clinic) 5.6 % (4.0-6.0) 08/10/25 12:44 Coding Level of Care Code Est Pt Level 4 (81113) Add On Problem Visit Only Diagnoses Type 2 diabetes mellitus with hyperglycemia, without long-term current use of insulin E11.65 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 Hemoglobin A1c goal of less than 6.5. Patient on Tresiba and Mounjaro (2) Hypercholesterolemia: Code(s): E78.00 - Pure hypercholesterolemia, unspecified Category: Medical Plan: Avoid fried foods, chicken skin, eggs, butter margarine, pastries and meat. Be it pork or beef they have a lot of cholesterol LDL goal of less than 100 and triglyceride of less than 150 on simvastatin 10 mg at bedtime November 2024 last blood work (3) Hypothyroidism: Code(s): E03.9 - Hypothyroidism, unspecified Category: Medical Plan: Continue with thyroid medication and will retest blood work in November (4) Osteoporosis: Comment: November Code(s): M81.0 - Age-related osteoporosis without current pathological fracture Category: Medical Qualifiers: Osteoporosis type: age-related Presence of current pathological fracture: without current pathological fracture Qualified Code(s): M81.0 - Age-related osteoporosis without current pathological fracture Plan: Patient has seen endocrinology and has advised to follow-up on the bone density. In 2025 (5) GERD (gastroesophageal reflux disease): Comment: Hiatal hernia, gastritis gastroparesis Code(s): K21.9 - Gastro-esophageal reflux disease without esophagitis Category: Medical Qualifiers: Esophagitis presence: without esophagitis Qualified Code(s): K21.9 - Gastro-esophageal reflux disease without esophagitis Plan: Avoid the foods that causes that usually spicy foods, tomato products, juices, coffee, soda and foods that your sensitive to. After eating do not lie down, allow 3-4 hours before in lie down. And keep the head of bed above 30 degrees to avoid the acid from going up. (6) SWAN (nonalcoholic steatohepatitis): Comment: 02/2020 NORMAL RENAL PANEL EXCEPT FOR AN elevated nonfasting glucose of 207, AST/ALT 27/36 with remainder normal, hemoglobin A1c is 6.2, vitamin B12 folate are normal, CBC shows borderline anemia normocytic, normochromic, intrinsic factor antibodies are negative, parietal cell L it antibodies are not elevated, IgG panel is completely normal, mitochondrial antibodies are negative, smooth muscle antibodies are negative, CURRENT Laboratory Tests 11/22/24 09:03 WBC 6.0 Hgb 12.2 Hct 35.7 L MCV 86.4 MCH 29.5 Plt Count 317 Estimated GFR 57 Total Bilirubin 0.3 AST 24 ALT 13 Alkaline Phosphatase 92 TSH 2.68 ULTRASOUND OF THE ABDOMEN 08/10/2024 FINDINGS: PANCREAS: Limited visualization of pancreatic tail and head. Imaged portion of pancreatic body is unremarkable. ABDOMINAL AORTA: The proximal, mid, and distal segments are normal in caliber. INFERIOR VENA CAVA: Visualized portions are normal. LIVER: Diffusely heterogeneous hepatic echotexture is suggestive of hepatocellular disease and severely limits visualization. Correlation with liver function tests and clinical exam recommended to determine further management. GALLBLADDER: The gallbladder is surgically absent. COMMON BILE DUCT: Normal in caliber measuring 0.4 cm in diameter. RIGHT KIDNEY: Mild pelvocaliectasis. No obstructing renal calculi. Limited visualization. The kidney measures 9.0 cm in maximum dimension. LEFT KIDNEY: Mild pelvocaliectasis. No obstructing renal calculi. Limited visualization. The kidney measures 9.6 cm in maximum dimension. SPLEEN: The spleen measures 7.1 cm in maximum dimension. FREE FLUID: None. US/US abdomen complete IMPRESSION: 1. Diffusely heterogeneous hepatic echotexture is suggestive of hepatocellular disease and severely limits visualization. Correlation with liver function tests and clinical exam recommended to determine further management. 2. The gallbladder is surgically absent. 3. Mild bilateral pelvocaliectasis. No obstructing renal calculi. Code(s): K75.81 - Nonalcoholic steatohepatitis (SWAN) Category: Medical Plan: Low-fat diet and exercise (7) Generalized anxiety disorder: Comment: [facility] every other week mt. Nava Code(s): F41.1 - Generalized anxiety disorder Category: Medical Plan: Continue with present therapy and counseling Plan Plan Patient was informed and verbally consented to the use of an ambient scribe for clinic note documentation during this visit. 1. Diabetes Mellitus The patient's diabetes is well-controlled, with a chehs-rc-wfjx A1c of 5.6%, improved from 5.7% in March. She reported intolerance to Mounjaro, a once-weekly injection, due to gastrointestinal side effects and does not wish to retry another medication in that class. The plan is to continue the current Tresiba insulin regimen. A prescription for Freestyle Lite test strips will be sent to her pharmacy. Will recheck comprehensive labs next year. 2. Hypercholesterolemia The patient's hypercholesterolemia is well-managed, with an LDL of 48 in November, well below the goal of less than 100. She will continue taking simvastatin 10 mg at bedtime. Lipid levels will be rechecked with her next annual blood work. 3. Osteoporosis The patient is followed by endocrinology for her osteoporosis. She will continue her current regimen of calcium and vitamin D. A follow-up bone density scan is planned for 2025 as advised. 4. Gastroesophageal Reflux Disease Continue to encourage lifestyle modifications, including a low-fat diet and exercise, to manage reflux symptoms. 5. Generalized Anxiety Disorder With Depression The patient will continue with her current therapy and counseling for management of her anxiety and depression. Discussion Notes I reviewed the patient's eflij-pw-pvwc hemoglobin A1c, which was excellent at 5.6%. We discussed continuing her current Tresiba insulin, as her blood sugar is well-controlled. We also discussed her prior intolerance to a GLP-1 agonist (Mounjaro) due to gastrointestinal side effects, and she expressed that she does not want to try it or similar medications again. I addressed her nocturnal chest pain, explaining that because it is non-exertional, it is less likely cardiac in origin and may be musculoskeletal or related to anxiety. I provided a request for comprehensive blood work to be done next year and confirmed her next bone density scan will be in 2025. Guidance was provided on using the patient portal for easier communication, and I gave anticipatory advice about masking in crowds due to the current flu season. Patient Instructions - Your blood sugar is very well controlled at 5.6%. Please continue using your Tresiba insulin as you have been. - Continue taking your cholesterol medication, simvastatin 10 mg, at bedtime. - I have sent a prescription for your glucose test strips (Freestyle Lite) to the [facility] in [place]. - I have given you a form to get your blood work done next year. - Continue taking your calcium and vitamin D for your bone health. Your next bone density scan will be in 2025. - Remember to get your eyes checked every year. - Please ask the staff at checkout to help you get set up with the patient portal. This will make it easier for you to send me messages. - Since we are in flu season, please be careful in crowded areas and consider wearing a mask. Orders: Orders Free T4 (Free Thyroxine) 3 Months E11.65 - Type 2 diabetes mellitus with hyperglycemia Thyroid Stimulating Hormone 3 Months E11.65 - Type 2 diabetes mellitus with hyperglycemia Lipid Panel 3 Months E11.65 - Type 2 diabetes mellitus with hyperglycemia, E78.00 - Pure hypercholesterolemia, unspecified Vitamin D 25-OH Total 3 Months E11.65 - Type 2 diabetes mellitus with hyperglycemia Microalbumin, Random (w Creat) 3 Months E11.65 - Type 2 diabetes mellitus with hyperglycemia AMB Hemoglobin A1c Today Z13.9 - Encounter for screening, unspecified Complete Blood Count Auto Diff 3 Months E11.65 - Type 2 diabetes mellitus with hyperglycemia Comprehensive Met. Panel 3 Months E11.65 - Type 2 diabetes mellitus with hyperglycemia Vitamin B12 and Folate 3 Months E11.65 - Type 2 diabetes mellitus with hyperglycemia Hemoglobin A1c 3 Months E11.65 - Type 2 diabetes mellitus with hyperglycemia Magnesium 3 Months E11.65 - Type 2 diabetes mellitus with hyperglycemia Creatinine Urine 3 Months E11.65 - Type 2 diabetes mellitus with hyperglycemia Medications: Refilled blood sugar diagnostic (FreeStyle Lite Strips) 1 strip miscellaneous TID 300 ea 3RF for diabetes mellitus E11.65 - Type 2 diabetes mellitus with hyperglycemia Discontinued tirzepatide (Mounjaro) for 4 weeks Discontinued Reason: Patient Refused 2.5 mg (0.5 mL) subcut QWEEK 2 mL 2RF E11.65 - Type 2 diabetes mellitus with hyperglycemia
[2025-08-10 12:43] VITALS: BP 114/72; PULSE 82; O2SAT 98; BMI 34.0
== END 2025-08-10 13:10 | disposition home or self-care (01) ==
LOC: HO.HMCH 12:39
PROVIDERS: PCP Internal Medicine; Visit Provider Internal Medicine
DX: E11.65 Type 2 diabetes mellitus with hyperglycemia (principal); E78.00 Pure hypercholesterolemia, unspecified; E03.9 Hypothyroidism, unspecified; M81.0 Age-related osteoporosis without current pathological fracture; K21.9 Gastro-esophageal reflux disease without esophagitis; K75.81 Nonalcoholic steatohepatitis (NASH); F41.1 Generalized anxiety disorder; Z13.9 Encounter for screening, unspecified

== ENCOUNTER → 2025-08-10 12:39 | Outpatient (BNVA) | payer OTHER, SELFPAY | PROVIDERS: PCP Internal Medicine; Visit Provider Internal Medicine | DX: M81.0 Age-related osteoporosis without current pathological fracture (principal); K21.9 Gastro-esophageal reflux disease without esophagitis; K75.81 Nonalcoholic steatohepatitis (NASH); F41.1 Generalized anxiety disorder; E11.65 Type 2 diabetes mellitus with hyperglycemia; E78.00 Pure hypercholesterolemia, unspecified; E03.9 Hypothyroidism, unspecified | CPT/HCPCS: 83036; 99212 ==